=== PATIENT | male | born 1945 | race Caucasian/White ===

== ENCOUNTER 2023-02-07 08:50 | Outpatient (CLI) | payer MEDICARE, BC, SELFPAY ==
--- NOTE | 2023-02-07 09:00 | CRLHL7_ITS ---
For Patients: As a result of the Century Cures Act, medical imaging exams and procedure reports are released immediately into your electronic medical record. You may view this report before your referring provider. If you have questions, please contact your health care provider. INDICATION: UTI TECHNIQUE: CT abdomen and pelvis urogram without and with 98CC ISOVUE-370 IV contrast. Contrast images were obtained in the nephrographic and delayed phases. COMPARISON: 06/07/2018 FINDINGS: KIDNEYS: The unenhanced images demonstrate no kidney or ureteral stones. The kidneys are normal in caliber and demonstrate normal uptake and excretion of IV contrast. No masses. Bilateral parapelvic renal cysts are present. There is mild prominence of the distal left ureter. URINARY BLADDER: The bladder wall is thickened measuring 9 millimeters although this may be secondary to incomplete distension. Mild irregularity of the posterior bladder wall is noted which may be associated with the adjacent prostate. OTHER: Mild scarring in both lung bases. No pleural effusion. No suspicious intrahepatic mass. Incidental subcentimeter hepatic cysts. The spleen is normal. Normal adrenal glands. Atherosclerotic disease. Pancreas is unremarkable. Sigmoid diverticulosis. No diverticulitis. No small bowel obstruction. No adenopathy. Degenerative changes. No fracture. Postop changes L3-4. Left hip replacement hardware. Normal gallbladder. IMPRESSION: 1. Distension of the left distal ureter without filling defect or stone. Possible wall thickening of the bladder with mild irregularity/trabeculation of the posterior bladder wall. 2. No hydronephrosis or solid renal mass. Please note that all CT scans at this facility use dose modulation, iterative reconstruction, and/or weight-based dosing when appropriate to reduce radiation dose to as low as reasonably achievable. Dictated by Lars Thompson MD @ 02/07/2023 1:17:49 PM (Electronically Signed)
[2023-02-07 09:52] LABS: Creatinine* 1.2 mg/dL (0.5-1.5); Estimated Glomerular Filt Rate 63 ml/min
== END 2023-02-07 08:51 | disposition home or self-care (01) ==
PROVIDERS: PCP Family Medicine; Visit Provider Urology
DX: N39.0 Urinary tract infection, site not specified (principal)
CPT/HCPCS: 36415; 74178; 82565; Q9967

== ENCOUNTER 2024-03-28 12:16 | Outpatient (CLI) | payer MEDICARE, BC, SELFPAY ==
--- OUTSIDE RECORDS SUMMARY | 2024-03-28 12:20 | XMS_ITS | Continuity of Care Document ---
Author Organization [facility] Address [address] [place] [address] Phone Care Team Providers Care General Lot Attendant Name Role Phone Jocelyn Leyva Unavailable Unavailable Allergies, Adverse Reactions, Alerts Substance Reaction Status Criticality simvastatin myalgia Active No Information ezetimibe myalgia Active No Information itraconazole Rash Active No Information melon Anaphylaxis Active No Information ARDON LEAF-TREE Anaphylaxis Active No Informati on Medications Medication Instructions Dosage Effective Dates (start - stop) Status Comments LATANOPROST (unknown strength) Not Available - Active PRESERVISION AREDS (unknown strength) Not Available - Active ASPIRIN (unknown strength) Not Available - Active OMEPRAZOLE (unknown strength) Not Available - Active ZANTAC (unknown strength) Not Available - Active Procedures Procedure Date Office/Outpatient Visit,Est, Mod 2018 X-Ray Exam Lwr Spine, Min 4 Views Postop Followup Visit Remove Lumbar Spine Lamina, 1 Seg Remove Added Spine Lamina, 1 Seg 2016 Pa Assist Remove Lumbar Spine Lamina, 1 Seg Pa Assist Remove Added Spine Lamina, 1 S eg Office/Outpatient Visit,New, Mod 2016 X-Ray Exam Lwr Spine, Min 4 Views Office/outpatient visit,new, mod 2009 X-ray exam lwr spine, min 4 views Advance Directives Directive Yes / No Effective Date File Name No Information Encounters Encounter Description Practice Location Reason(s) For Visit Diagnoses Date Provider Providers Copied on Encounter [facility], [address], [place], [place], [id number], [place] tel:[phone] [facility] - [facility] No Information 3201 9 Angela Jocelyn. [facility], [address], [place], [place], [facility], [place]. tel:[phone] Office/Outpa tient Visit,Est, Mod [facility], [address], [place], [place], [id number], [place] tel:[phone] [facility] - [place] Radiculopath y, lumbosacral region Jan- 8201 9 Angela Jocelyn. [facility], [address] [place] [address] [address], [place], [place], [facility], [place]. tel:[phone] Referring Provider: Gerardo Mathews, Deskarma Edith Padron , [place], [address]. tel:[phone] [facility], [address] [place] [address], [id number], [place] tel:[phone] [facility] - [place] Encounter for other specified surgical aftercare 7 Transfeldt Ensor. [facility], [address] [place] [address], [address], [id number], [place]. tel:[phone] Referring Provider: Gerardo Mathews, Deskarma Edith Padron , [place], [address]. tel:[phone] [facility], [address], [place], [place], [id number], [place] tel:[phone] [facility] No Information 7 Transfeldt Ensor. [facility], [address] [place] [address], [facility] [address], [place], [id number], [place]. tel:[phone] Referring Provider: Gerardo Mathews, [facility], [place], [address]. tel:[phone] Office/Outpa tient Visit,New, Mod [facility], [address] [place] [address], [id number], [place] tel:[phone] [facility] - [place] Spinal stenosis, lumbar region 7 Transfeldt Ensor. [facility], [address] [place] [address], [address], [id number], . tel:[phone] Referring Provider: Gerardo Mathews, [facility] [address] [place], [address]. tel:[phone] Office/outpa tient visit,new, mod Z [facility], [address] [place], [place] [address], [address], [place] tel:[phone] [facility] - [place] No Information 0 0 Transfeldt Ensor. [facility], [address] [place] [address], [address], [id number], . tel:[phone] Family History Family Member Type Diagnosis Age At Onset No Information Payers Payer name Insurance type Covered alliance [place] [id number] Medicare [facility] [id number] 1 Social History Type Description Quantity Date Captured Comments Alcohol Use Details Unknown Caffeine Use Details Unknown Tobacco Use Status No Information Smoking Status No Information Sex Male Chief Complaint And Reason For Visit No Information Reason For Referral Reason For Referral No Information Plan Of Treatment Date Type Action Status Future Order: Radiology Order AP -Add-Nqxj-Tox Lum (APLatFlExL), Ordered on: Ordered Future Order: Radiology Order AP /Lat/Flex/Ext Lumb (APLatFlExL), Ordered on: Ordered History Of Present Illness Encounter Date Complaint History Of Prese nt Illness No Information Functional Status Date Functional Assessmen t No Information Instructions Date Instruction Additional Infor toniion Weight Management Education Rela smith to Overweight Weight management: I nstructed to return to General Practitioner timeframe: 1 Month. Related to Overweight Weight Management Education Rela smith to Overweight Weight management: I nstructed to return to General Practitioner timeframe: 1 Month. Related to Overweight Assessments Type Assessment Date No Information Patient Care Teams Name Effective Dates (start - stop) Status Members No Information
--- OUTSIDE RECORDS SUMMARY | 2024-03-28 12:20 | XMS_ITS | Referral Summary ---
Author Organization [facility] Address [address] [place] [address] Care Team Providers Care Power Plant Technician Name Role Phone Elsewhere, Pcp Primary Care Provider Unavailabl e Source Comments Patient records contain information from all sites at [facility]. For routine questions regarding patient records, call [phone] during business hours, M-F 8:00 AM - 5:00 PM Central Time. Record requests for emergency care only can be directed to [phone] at any time.[facility] Encounters Date Type Department Care Team Description 02/27/2024 2:40 PM CDT Office Visit Department of Dermatology in [place], [place] [address] [place] [address] Karena Maguire M.D., M.S. Keratosis Seborrheic Inflamed (Primary Dx); Keratosis Actinic Discharge Disposition: Home or Self Care 02/19/2024 Clinical Communication Department of Dermatology in [address] [phone] sEtuardo Montanez M.D. from Last 3 Months Allergies Active Allergy Reactions Criticality Noted Date Comments Ezetimibe Myalgia Medium 02/22/2010 Itraconazole Rash Medium sporonox Melon Shortness of breath (Reselect Reaction) Medium 03/29/2017 Simvastatin Myalgia Medium 02/22/2010 Elevated blood glucose as well.Has tried all statins Spice Flavor Anaphylaxis 04/01/2009 pinto Medications Medication Sig Dispensed Refills Start Date End Date Status aspirin [address] tablet Take 81 mg by mouth every other day. 01/02/2019 Active vitamins A,C,Y-njjp-vylyae (ICAPS AREDS) 14,320 Units-226 mg-200 Units per capsule Take 1 tablet by mouth. Active timolol (TIMOPTIC) 0.5 % ophthalmic solution Administer 1 drop into the right eye 2 (two) times a day. 5 05/12/2019 Active tamsulosin (FLOMAX) 0.4 mg 24 hr capsule TAKE ONE CAPSULE BY MOUTH DAILY AFTER A MEAL 11 03/30/2019 Active fluorouraciL (EFUDEX) 5 % cream Apply 1 application topically 2 (two) times a day. For 3 weeks as tolerated on the right cheek 40 g 12/31/2020 Active finasteride (PROSCAR) 5 mg tablet Take 5 mg by mouth daily. 06/25/2022 Active tiZANidine (ZANAFLEX) 2 mg tablet Take 2 mg by mouth as needed. 07/11/2022 Active omeprazole (PriLOSEC) [address] capsule TAKE 1 CAPSULE (40 MG) BY MOUTH ONCE DAILY BEFORE A MEAL. 12/20/2022 Active Social History Tobacco Use Types Packs/Day Years Used Date Smoking Tobacco: Former Smokeless Tobacco: Never Tobacco Cessation:Counseling Given: Not Answered Nutrition Answer Date Recorded Nutrition: EVOO Fat Source Unknown 12/24 Nutrition: Servings of Fruits/Vegetables per Day Not on file 12/24/2020 Dental Answer Date Recorded Dental: Regular Dentist Unknown 12/24/19 21 Sex and Gender Information Value Date Recorded Sex Assigned at Not on file Gender Identity Not on file Sexual Orientation Not on file Last Filed Vital Signs Vital Sign Reading Time Taken Comments Blood Pressure 160/88 12/31/2020 11:00 AM ADMINISTRATIVE CLERK Pulse 73 12/31/2020 11:00 AM ADMINISTRATIVE CLERK Temperature - - Respiratory Rate - - Oxygen Saturation - - Inhaled Oxygen Concentration - - Weight - - Height - - Body Mass Index - - Plan of Treatment Upcoming Encounters Date Type Department Care Team (Late st Contact Info) Description 06/02/2024 4:15 PM CDT Office Visit Department of Dermatology in [address] [phone] Estuardo Montanez M.D. [address] [place] [address] Discharge Disposition: Home or Self Care Medical Devices Implanted Type Area Probate Clerk Device Identifier Shelf Expiration Date Model / Serial / Lot Hip Implant- [id number] Implanted:02/03 (Quantity not on file) Hip Implant Left: Hip Care Teams Power Plant Technician Relationship Specialty Start Date End Date Elsewhere, Pcp PCP - General Family Medicine 02/05/19
--- OUTSIDE RECORDS SUMMARY | 2024-03-28 12:20 | XMS_ITS | Encounter Summary ---
Author Organization [facility] Address [address] [place] [address] Care Team Providers Care Director Of Strategy & Mobile Name Role Phone Elsewhere, Pcp Primary Care Provider Unavailabl e Reason for Visit * Appointment Request (Routine) - Closed Specialty Diagnoses / Procedures Referred By Carl lovell Referred To Contact Dermatology Diagnoses Nevus Changing Referral ID Status Reason Start Date Expiration Date Visits Re quested Visits Authorized [id number] Closed 02/21/2024 02/20/2025 1 1 Encounter Details Date Type Department Care Team ([facility] st Contact Info) Description 02/27/2024 2:40 PM CDT Office Visit Department of Dermatology in [place], [place] [address] [place] [phone] Karena Maguire M.D., M.S. [address] [place] [phone] Keratosis Seborrheic Inflamed (Primary Dx); Keratosis Actinic Discharge Disposition: Home or Self Care Social History Tobacco Use Types Packs/Day Years Used Date Smoking Tobacco: Former Smokeless Tobacco: Never Nutrition Answer Date Recorded Nutrition: EVOO Fat Source Unknown 12/24 Nutrition: Servings of Fruits/Vegetables per Day Not on file 12/24/2020 Dental Answer Date Recorded Dental: Regular Dentist Unknown 12/24/19 21 Sex and Gender Information Value Date Recorded Sex Assigned at Not on file Gender Identity Not on file Sexual Orientation Not on file documented as of this encounter Progress Notes * Karena Maguire M.D., M.S. - 02/27/2024 2:40 PM CDT Correspondence to Dr. Maguire REFERRAL No ref. provider found CHIEF COMPLAINT / REASON FOR VISIT Multiple concerns, face and scalp only skin cancer screening examination HISTORY OF PRESENT ILLNESS Mr. Barrie Dinh is a 78 y.o. male who presents today for a face and scalp only skin cancer screening examination. Last seen in our department on 09/18/2023 with a benign exam. Today notes several waxy papules and skin tags on the anterior neck that he would like treated as well as on the left cheek. Notes he previously had a mole with a atypia biopsied on left medial cheek and feels a new bump growing adjacent to the scar. He would like this specifically evaluated MEDICAL HISTORY 1. 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 Holman at [facility] 2. Negative for melanoma FAMILY HISTORY Negative for melanoma PHYSICAL EXAM General: Awake, alert, in no acute distress, and with appropriate affect. Skin: I have examined the scalp, face. Hyperkeratotic red papule x3 on the vertex scalp (cryotherapy x3). Irritated waxy stuck on papule on the left anterior neck, left cheek, and right neck (cryotherapy x5). ASSESSMENT / PLAN #1 Actinic keratoses times 3 Given the precancerous nature of this lesion(s), treatment is medically indicated. After discussionof the risks, benefits and alternatives to treatment with cryotherapy, informed consent was obtained. We treated a total of xxx lesion(s) with two 20-second freeze-thaw cycles of liquid nitrogen cryotherapy. The patient tolerated the procedure well. Aftercare instructions were provided in written and verbal form to the patient. Should any of these lesions recur, the patient should return for biopsy or further evaluation. Discussed the risks, benefits, alternatives, and the necessity of other members of the healthcare team participating in the procedure. All questions answered and consent given. #2Inflamed seborrheic keratoses The benign nature of this lesion(s) was discussed with the patient. Given the inflamed nature of this lesion(s), its treatment is medically indicated. We treated a total of x5 lesion(s) with one 20-second freeze-thaw cycle of liquid nitrogen cryotherapy. The patient tolerated the procedure well. Aftercare instructions were provided in written and verbal form to the patient. Should any of these lesions recur, the patient should return for further evaluation. #3 Seborrheic keratoses The benign nature of the skin lesion(s) was discussed with the patient. No treatment is required. Irecommend continued observation. Should symptoms or changes develop related to this condition, I would recommend a return visit for reassessment. No orders of the defined types were placed in this encounter. Associated attestation - Mat Carrasco M.D. - 02/27/2024 2:53 PM CDT I saw and evaluated the patient, participating in the sanabria elements of the service. I discussed the findings, assessment and plan with the resident/fellow and agree with resident/fellow???s findings and plan as documented in the resident/fellow's note. I was immediately available for the entirety ofthe procedure(s) and present for the sanabria and critical portions. documented in this encounter Plan of Treatment Upcoming Encounters Date Type Department Care Team (Late st Contact Info) Description 06/02/2024 4:15 PM CDT Office Visit Department of Dermatology in [address] [phone] Estuardo Montanez M.D. [address] [place] [phone] Discharge Disposition: Home or Self Care documented as of this encounter Visit Diagnoses Diagnosis Keratosis Seborrheic Inflamed- Primary Keratosis Actinic documented in this encounter Care Teams Director Of Strategy & Mobile Relationship Specialty Start Date End Date Elsewhere, Pcp PCP - General Family Medicine 02/05/19 documented as of this encounter
--- OUTSIDE RECORDS SUMMARY | 2024-03-28 12:20 | XMS_ITS | Continuity of Care Document ---
Author Organization [facility] Address [address] [facility] [address] [place] [address] Phone Care Team Providers Care Nutrition And Dietetics Instructor Name Role Phone Moises Lopez MD Unavailable Unavailable Allergies, Adverse Reactions, Alerts Substance Reaction Status Criticality itraconazole Active No Information Medications Medication Instructions Dosage Effective Dates (start - stop) Status Comments gabapentin 300 mg capsule take 1 capsule by oral route every bedtime 300 MG - Active ibuprofen 200 mg tablet take 2 tablet by oral route every 6 hours as needed with food 400 MG - Active PROBIOTIC (unknown strength) take 1 Capsule by Oral route every day Not Available - Active ranitidine 150 mg tablet take 2 Tablet by oral route every bedtime - Active omeprazole 20 mg tablet,delayed release take 1 Tablet by Oral route every day 1 Tablet - Active aspirin 81 mg tablet,delayed release take 1 tablet by oral route every day 81 MG - Active PRESERVISION AREDS (unknown strength) take 2 tablet by Oral route every day Not Available - Active Procedures Procedure Date Office/Outpatient Visit, [facility] [[email or web address] Office/Outpatient Visit, New Routine Venipuncture Specimen Handling Complete Cbc WAuto Diff Wbc Rbc Sed Rate, Nonautomated Assay Of Serum Albumin Assay Of Creatinine Transferase (Ast) (Sgot) Alanine Amino (Alt) (Sgpt) Assay Of Ck (Cpk) CReactive Protein Antinuclear Antibodies Advance Directives Directive Yes / No Effective Date File Name No Information Encounters Encounter Description Practice Location Reason(s) For Visit Diagnoses Date Provider Providers Copied on Encounter Office/Outpa tient Visit, [facility] , [address], [place], [address], [place] tel:[phone] [facility] , Follow Up of Musculoskele jorge alberto pain (chief complaint) Generalized osteoarthrit isLeg weaknessCarp al tunnel syndromeDupu ytren's contracture 5 [place]. [facility] [address], [place], [address], [place]. tel:[phone] Referring Provider: Moises Peter, [facility] [address], [place], [address]. [phone] Office/Outpa tient Visit, [facility] , [address], [place], [address], [place] tel:[phone] [facility] , Musculoskele jorge alberto pain (chief complaint) TinglingFati gueMuscle painGERDGene ralized osteoarthrit is John [place]. [facility] [address], [place], [address], [place]. tel:[phone] Referring Provider: Moises Peter, [facility] [address], [place], [address]. tel:[phone] [facility] , [address], [place], [address], [place] tel:[phone] [facility] , No Information John De Leon. [facility] [address], [place], [address], [place]. tel:[phone] Family History Family Member Type Diagnosis Age At Onset Father Problem (finding) degenerative disorder o f macula Mother Problem (finding) degenerative disorder o f macula Payers Payer name Insurance type Covered democrat ID Chuck benavidez(s) [employer] Medicare Advantage/Plat inum Blue BL [id number] Social History Type Description Quantity Date Captured Comments Alcohol Use Details 2 drinks daily Caffeine Use Details coffee 2 cups per day Tobacco Use Status Ex-cigarette smoker 015 Smoking Status Former smoker Smoking Tobacco Use Details Cigarette: Age Stopped: 42 Cigarette: No Details Available Sex Male Vital Signs Date / Time: Height Weight BMI Pulse Rate Blood Pressure Temperature Respiratory Rate Body Surface Area Head Circumference Head Circ. Percentile Wt./Oscar. Percentile BMI percentile Pulse Ox Inhaled Ox 8:36 AM 69.75 in 87.997 kg (194.00 lbs) 28.0 4 kg/m eter (2) 112/60 mm[Hg] 97.90 F Chief Complaint And Reason For Visit From encounter dated '06/29/2015 08:30'. Follow Up of Musculoskeletal pain (chief complaint) Reason For Referral Reason For Referral No Information History Of Present Illness Encounter Date Complaint History Of Prese nt Illness Follow Up of Musculoskeletal mary ann n Musculoskeletal pain Functional Status Date Functional Assessmen t No Information Instructions Date Instruction Additional Infor mation His symptoms and phy sical findings in the upper extremities are consistent with carpal tunnel syndrome and EMG did confirm mild carpal tunnel syndrome on the right. The symptoms have been stable for many years and are not particularly bothersome for him. I can't rule out a contribution to these symptoms from cervical radiculopathy. I don't think further treatment of this issue is necessary. I therefore don't think an MRI scan of the cervical spine would change treatment. Related to Carpal tunnel syndrome He has a Dupuytren's contracture in the right hand but is virtually asymptomatic from this. Again, no treatment was suggested. Related to Dupuytren's contracture His leg pain is impr yonis, presumably related to the gabapentin. I suggested that he discuss the possibility of increasing the gabapentin dose with Dr. Hylton. Although he also complains of weakness and has a very low level elevated CPK, EMG was not supportive of a diagnosis of inflammatory myositis nor is the low level of elevation of that blood test. Again, I don't think he has an underlying systemic disease other than osteoarthritis that includes the lumbar spine and, in that area, it is causing impingement on nerve roots at multiple levels. I brought up the possibility of epidural injection for this problem. Again, he is going to discuss this with Dr. Hylton. Related to Leg weakness I think the main und erlying condition is generalized osteoarthritis. Although he has positive single-stranded DNA antibodies, I don't think he has any STEPHANIE related connective tissue disease. Because of this laboratory finding, however, I did suggest that he followup with me in 6 months to make sure nothing has evolved to suggest connective tissue disease. In the meantime, he will continue conservative management of his musculoskeletal symptoms. Related to Generalized osteoarthritis He certainly has gen eralized osteoarthritis. He's had a left total hip arthroplasty likely related to that. For now, pending further evaluation, I did not recommend any treatment. I will do basic laboratories looking for other forms of arthritis. Related to Generalized osteoarthritis His significant refl ux symptoms despite both omeprazole and ranitidine likely will limit any use of nonsteroidal anti-inflammatory medication. Related to GERD See discussion above . Certainly this is not related to the statin medication anymore. I don't think this is simple deconditioning. Related to Muscle pain The fatigue seems to be felt primarily in his legs. I believe this goes along with the sensation of tingling although it can occur at different times. Again, I wonder about the possibility of lumbar radiculopathy as the underlying cause of both of these issues. The fatigue may be pseudo-claudication. He has excellent peripheral pulses making claudication much less likely. I'm going to check laboratories for myasthenia gravis but I doubt that. I did recommend an MRI scan of the lumbosacral spine in addition to the EMG. No specific treatment of this was recommended until I see results of those tests. Related to Fatigue He was somewhat diff icult to pin him down as to the timing of when he has tingling in his hands and legs. The tingling in his hands involves all of the fingers with the possible exception of the fifth fingers. It involves the entire legs from the hips distally. He had a positive Phalen's test bilaterally. He may have bilateral carpal tunnel syndrome but it's also very possible that he has cervical radiculopathy contributing to the symptoms in his hands. I'm going to check an EMG of both upper and lower extremities to see if that is helpful in identifying the source of these dysesthesias. I also recommended that he at least try using splints on his wrist at night. I did not recommend any medication at this time. Related to Tingling Assessments Type Assessment Date assessment Generalized osteoarthritis assessment Leg weakness assessment Carpal tunnel syndrome 15 assessment Dupuytren's contracture 015 Patient Care Teams Name Effective Dates (start - stop) Status Members No Information
--- OUTSIDE RECORDS SUMMARY | 2024-03-28 12:20 | XMS_ITS | Clinical Summary ---
Author Organization [facility] Address [address] [place] [address] Care Team Providers Care Garment Tag Stringer Name Role Phone Elsewhere, Pcp Primary Care Provider Unavailabl e Source Comments Patient records contain information from all sites at [facility]. For routine questions regarding patient records, call [phone] during business hours, M-F 8:00 AM - 5:00 PM Central Time. Record requests for emergency care only can be directed to [phone] at any time.[facility] Allergies Active Allergy Reactions Criticality Noted Date [...] mouth every other day. 01/02/2019 Active vitamins A,C,I-ynlw-jpmsdc (ICAPS AREDS) 14,320 Units-226 mg-200 Units per [...] ONCE DAILY BEFORE A MEAL. 12/20/2022 Active Encounters Date Type Department Care Team Description 02/27/2024 2:40 PM CDT Office Visit Department of Dermatology in [place], [place] [address] [place] [phone] Karena Maguire M.D., M.S. Keratosis Seborrheic Inflamed (Primary Dx); Keratosis Actinic Discharge Disposition: Home or Self Care 02/19/2024 Clinical Communication Department of Dermatology in [address] [phone] Estuardo Montanez M.D. from Last 3 Months Social History Tobacco Use Types Packs/Day Years [...] Comments Blood Pressure 160/88 12/31/2020 11:00 AM [employer] Pulse 73 12/31/2020 11:00 AM [employer] Temperature - - Respiratory Rate - - Oxygen Saturation - - Inhaled Oxygen Concentration - - Weight - - Height - - Body Mass Index - - Plan of Treatment Upcoming Encounters Date Type Department Care Team (Late st Contact Info) Description 06/02/2024 4:15 PM CDT Office Visit Department of Dermatology in [address] [phone] Estuardo Montanez M.D. [address] [place] [address] Discharge Disposition: Home or Self Care Health Maintenance Due Date Last Done Comments Hepatitis C Screening 1945 Zoster Vaccines (1 of 2) 1996 DTaP,Tdap,and Td Vaccines (2 - Td or Tdap) 08/10/2018 08/10/2008 Influenza Vaccine (#1) 2023 , 08/17/2021, 08/19/2020, Additional history exists Depression Screening (Annual PHQ-2) 11/05/2023 Fall Risk Screen (Annual) 11/05/2023 COVID-19 Vaccine (8 - 2022-2 4 season) 2024 10/08/2023, 06/29/2023, 07/28/2022, Additional history exists Pneumococcal vaccine (65+ years) Completed 10/21/20 15, 04/02/2012 Medical Devices Implanted Type Area Tapper Supervisor Device Identifier Shelf Expiration Date Model / Serial / Lot Hip Implant- 015 Implanted:02/03 (Quantity not on file) Hip Implant Left: Hip Care Teams Garment Tag Stringer Relationship Specialty Start Date End Date Elsewhere, Pcp PCP - General Family Medicine 02/05/19
--- OUTSIDE RECORDS SUMMARY | 2024-03-28 12:20 | XMS_ITS ---
Author Organization [facility] Address [address] [place] [address] Care Team Providers Care Executive Director Contract Shop Name Role Phone Unavailable Unavailable Unavailable Surgery Details Not on file Complications Check Surgery Details section. Procedure Estimated Blood Loss Check Surgery Details section. Procedure Findings Check Surgery Details section. Procedure Specimens Taken Check Surgery Details section.
--- OUTSIDE RECORDS SUMMARY | 2024-03-28 12:21 | XMS_ITS | Data Portability ---
Author Organization [place] [facility] Address [address] [facility] [address] [place] [address] Assessment No assessment recorded. Plan of Treatment Reminders Order Date Submit Date Provider Last Modified By Organization Details Last Modified Time Details Appointments None recorded. Lab urinalysis, dipstick 2023 024 JOSE [facility], [facility]5 [facility], [address] [facility], [place], [address], 4 09:00:26 urinalysis, dipstick 2022 023 [facility], [facility]5 [facility], [address] [facility], [place], [address], 3 10:40:52 urinalysis, dipstick 2022 023 [facility], [facility]5 [facility], [address] [facility], [place], [address], 3 12:10:00 urinalysis, dipstick 2021 022 [email or web address] [facility], [facility]5 [facility], [address], [place], [address], 2 11:56:12 Referral None recorded. Procedures bladder scan (PROC) 2023 024 [email or web address] [facility], [address], [address], [place], [address], 4 11:43:28 bladder scan (PROC) 2022 023 [facility], [address], [address], [place], [address], 3 10:40:52 bladder scan (PROC) 2022 023 [facility], [address], [place], [address], 3 12:10:00 Surgeries None recorded. Imaging None recorded. Medication Orders cephalexin 500 mg capsule 2023 024 JOSE [id number], [address] [place] [address], [address], 4 11:45:28 tamsulosin 0.4 mg capsule 2022 023 [email or web address] [facility], [address] [place] [address], [address], 3 12:19:59 finasteride 5 mg tablet 2021 022 JOSE [id number] [employer], [address] [place] [address], [address], 2 12:27:54 Patient TargetsNo targets recorded. Patient Instructions Encounter Date Encounter Id Patient Instructions Last Modified By Organization Details Last Modified Time 02/12/2024 [id number] continue current prostate meds and start keflex 10 days, plan rtc in July. [email or web address] Not available 02/12/2024 11:46:11 07/10/2023 [id number] doing well and will plan rtc in the spring for PSA and med refills. [email or web address] Not available 07/10/2023 10:52:06 02/27/2023 [id number] will set up for cystoscopy left retrograde and possible left ureteroscopy with laser/stent placement ALEKS discussed 8 minute phone visit. [email or web address] Not available 02/27/2023 12:09:27 01/23/2023 [id number] will increase tamsulosin to two per day, get PSA today and set up for CT urogram, call with reports, and plan follow up 3 months for recheck. [email or web address] Not available 01/23/2023 12:21:05 04/11/2022 [id number] will continue tamsulosin and start finasteride plan recheck in 4-6 months. [email or web address] Not available 04/11/2022 12:29:00 Reason for Referral None Reported. Results Created Date Observation Date Name Description Value Unit Range Abnormal Flag LastModifiedBy Organization Detail LastModifiedTime 04/11/20 22 04/11/2022 urina lysis , dipst ick pH-Status 5.5 Not Available [address] [facility], [place], [address], 04/11/2022 11:55:36 01/24/20 23 01/23/2023 urina lysis , dipst ick pH-Status 6.5 Not Available [address] [place], [place], [address], 01/23/2023 12:05:18 01/24/20 23 01/23/2023 bladd er scan (PROC ) Volume (in mL) 49ml Not Available [address] [place], [place], [address], 01/23/2023 12:05:25 07/10/20 23 07/10/2023 urina lysis , dipst ick pH-Status 5.5 Not Available [address], [place], [address], 07/10/2023 10:31:06 07/10/20 23 07/10/2023 bladd er scan (PROC ) Volume (in mL) 64ml Not Available [address], [place], [address], 07/10/2023 10:31:08 02/12/20 24 02/12/2024 bladd er scan (PROC ) Volume (in mL) 85ml Not Available [address], [place], [address], 02/12/2024 11:28:40 02/13/20 24 02/13/2024 urina lysis , dipst ick Color-Status Yellow Not Available [address], [place], [address], 02/12/2024 11:43:24 02/13/20 24 02/13/2024 urina lysis , dipst ick Clarity-Stat us Clear Not Available [address], [place], [address], 02/12/2024 11:43:24 02/13/20 24 02/13/2024 urina lysis , dipst ick Specimen Type Voided Not Available [address], [place], [address], 02/12/2024 11:43:24 02/13/20 24 02/13/2024 urina lysis , dipst ick Leuko-Status Negati ve Not Available [address], [place], [address], 02/12/2024 11:43:24 02/13/20 24 02/13/2024 urina lysis , dipst ick Blood-Status Negati ve Not Available [address] [place], [place], [address], 02/12/2024 11:43:24 02/13/20 24 02/13/2024 urina lysis , dipst ick Nitrates-Sta tus negati ve Not Available [address] [place], [place], [address], 02/12/2024 11:43:24 02/13/20 24 02/13/2024 urina lysis , dipst ick pH-Status 6.0 Not Available [address] [place], [place], [address], 02/12/2024 11:43:24 02/13/20 24 02/13/2024 urina lysis , dipst ick Sp [place]-Stat us 1.025 Not Available [address] [place], [place], [address], 02/12/2024 11:43:24 02/13/20 24 02/13/2024 urina lysis , dipst ick Ketones-Stat us Not Available [address], [place], [address], 02/12/2024 11:43:24 07/05/20 20 06/21/2020 measu remen t of post- voidi ng resid ual urine and/o r bladd er capac ity (PROC ) No observ ation record ed. BARCODE Not Available 07/05/2020 13:11:44 04/12/20 22 04/11/2022 bladd er scan (PROC ) No observ ation record ed. BARCODE Not Available 04/12/2022 08:52:59 01/26/20 23 01/23/2023 bladd er scan (PROC ) No observ ation record ed. BARCODE Not Available 01/25/2023 15:58:35 02/09/20 23 02/07/2023 CT, urogr am No observ ation record ed. [email or web address] [address] [place], [address], 02/28/2023 16:42:28 04/19/20 23 04/19/2023 XR, kidne y + urete r + bladd er No observ ation record ed. [email or web address] [facility] [address] [facility] [place], [address], 04/20/2023 09:17:27 02/14/20 24 02/12/2024 bladd er scan (PROC ) No observ ation record ed. BARCODE Not Available 02/14/2024 15:12:07 Result Notes None recorded. Problems Name Status Onset Date Resolution Date Notes Provider Name and Address Organization Details Recorded Time Lower urinary tract symptoms due to benign prostatic hypertrophy Active 01/24/20 Jerry Almanza MD [address] [place] [address],[address], [address], [facility] 01/23/2023 12:18:40 Problem Notes None recorded. Procedures Surgical History Date Name Laterality Status Provider Name and Address Organization Details Recorded Time 4 Bladder Scan completed Jerry Almanza MD [address] [place] [address],[address], [address], [facility] 02/12/2024 11:28:36 3 Bladder [facility] 07/10/2023 10:39:00 3 Bladder Scan completed Jerry Almanza MD [address] [place] [address],[address], [address], [facility] 01/23/2023 12:05:08 2 Bladder Scan completed Jerry Almanza MD [address] [place] [address],[address], [address], [facility] 04/11/2022 11:55:29 procedure on back completed Jerry Almanza MD [address] [facility],[address], [place], [address], [facility] 04/11/2022 11:53:44 total replacement of hip completed Jerry Almanza MD [address] [facility],[address], [place], [address], [facility] 04/11/2022 11:54:04 Vasectomy completed Jerry Almanza MD [address] [facility],[address], [place], [address], [facility] 04/11/2022 11:54:11 Imaging Results Imaging Date Name Status LastModified by Organiz ation Details LastModified Time 06/21/2020 measurement of post-voiding residual urine and/or bladder capacity (PROC) completed BARCODE Information not available 07/05/2020 13:11:44 04/11/2022 bladder scan (PROC) completed BARCODE Information not available 04/12/2022 08:52:59 01/23/2023 bladder scan (PROC) completed BARCODE Information not available 01/25/2023 15:58:35 02/07/2023 CT, urogram completed [facility] [address] [place], [address], 02/28/2023 16:42:28 04/19/2023 XR, kidney + ureter + bladder completed [email or web address] [facility] [address] [place], [address], 04/20/2023 09:17:27 02/12/2024 bladder scan (PROC) completed BARCODE Information not available 02/14/2024 15:12:07 Procedure Notes None recorded. Medical Equipment None Reported. Allergies Allergen ID Allergen Name Allergen Category Reaction Reaction Severity Criticality Documentation Date Start Date Code Code System Note Provider Name and Address Organization Details Recorded Time 828504 Sporanox medicatio n Not available Not available Not available 04/11/2022 6 RxNorm Jerry Almanza MD [address] [facility],[address], [place], [address], [facility] 11:51:49 909145 melon extract food Not available Not available Not available 04/11/2022 61389 10 RxNorm Jerry Almanza MD [address] [facility], [place], [address], [facility] 2 11:51:54 278645 Product containin g 3-hydroxy -3-methyl glutaryl- coenzyme A reductase inhibitor (product) medicatio n Not available Not available Not available 04/11/2022 24378 009 SNOMED Jerry Almanza MD [address] [facility], [place], [address], [facility] 2 11:52:03 Medications Name Sig Start Date Stop Date Status Note LastModified by Organization Details LastModified Time amoxicillin 500 mg capsule TAKE 4 CAPSULE 1 HOUR PRIOR TO DENTAL APPIONTME NT active Not Available Not Available No t Available tizanidine 2 mg tablet TAKE 1 TABLET BY MOUTH EVERY 6 HOURS IF NEEDED FOR MUSCLE SPASM. active Not Available Not Available No t Available sulfamethox azole 800 mg-trimetho prim 160 mg tablet TAKE 1 TABLET BY MOUTH EVERY 12 HOURS FOR 7 DAYS 01/23 completed Not Available Not Available Not Available omeprazole 40 mg capsule,del ayed release TAKE 1 CAPSULE BY MOUTH EVERY DAY BEFORE A MEAL active Not Available Not Available No t Available ketorolac 0.5 % eye drops PLEASE SEE ATTACHED FOR DETAILED DIRECTION S 04/11 completed Not Available Not Available Not Available prednisolon e acetate 1 % eye drops,suspe nsion PLEASE SEE ATTACHED FOR DETAILED DIRECTION S 04/11 completed Not Available Not Available Not Available tamsulosin 0.4 mg capsule TAKE 2 CAPSULES BY MOUTH EVERY DAY IN THE EVENING. active Not Available Not Available No t Available phenazopyri dine 100 mg tablet TAKE 1 TABLET BY MOUTH 3 TIMES A DAY NEEDED FOR PAIN 01/23 completed Not Available Not Available Not Available cephalexin 500 mg capsule TAKE 1 CAPSULE BY MOUTH THREE TIMES A DAY FOR 10 DAYS active Not Available Not Available No t Available timolol maleate 0.5 % eye drops INSTIL 1 DROP INTO RIGHT EYE 2 TIMES DAILY active Not Available Not Available No t Available finasteride 5 mg tablet TAKE 1 TABLET BY MOUTH EVERY DAY active Not Available Not Available No t Available gatifloxaci n 0.5 % eye drops PLEASE SEE ATTACHED FOR DETAILED DIRECTION S 04/11 completed Not Available Not Available Not Available Vitals Date Recorded Body height Body mass index (BMI) Body weight Provider Name and Address Organization Details Last Updated DateTime 01/23/2023 177.8 cm 27.3 kg/m2 63452.55 g Jerry Almanza MD [address] [place] [address],[address], [address] [place] [address] 01/23/2023 12:06:34 Date Recorded Body height Body mass index (BMI) Body weight Provider Name and Address Organization Details Last Updated DateTime 02/27/2023 177.8 cm 27.3 kg/m2 61050.55 g Claudiaellen Godinez [facility] 02/27/2023 10:59:27 Date Recorded Body height Body mass index (BMI) Body weight Provider Name and Address Organization Details Last Updated DateTime 07/10/2023 177.8 cm 27.3 kg/m2 03131.55 g Gregg Godinez [facility] 07/10/2023 10:30:30 Date Recorded Body height Body mass index (BMI) Body weight Provider Name and Address Organization Details Last Updated DateTime 02/12/2024 177.8 cm 27.3 kg/m2 31595.55 g Jerry Almanza MD [address] [place] [address] 02/12/2024 11:30:14 Date Recorded Body height Body mass index (BMI) Body weight Provider Name and Address Organization Details Last Updated DateTime 04/11/2022 177.8 cm 28 kg/m2 63060.51 g Jerry Almanza MD [address] [place] [address] 04/11/2022 11:50:45 Social History Question Answer Notes LastModified by Organizat ion Details LastModified Time Tobacco Smoking Status Former Smoker Jerry Almanza MD [address] [place] [address], [address] [place] [address], [facility] 04/11/2022 11:53:29 What Is Your Level Of Alcohol Consumption? Moderate [email or web address] Information not available 04/11/2022 What Is Your Level Of Caffeine Consumption? Moderate [email or web address] Information not available 04/11/2022 When Did You Quit Smoking? 17+yearssinmiguel restrepo Information not available 04/11/2022 What Was The Date Of Your Most Recent Tobacco Screening? 04/11/2022 [email or web address] Information not available 04/11/2022 Sex: Male Functional Status None recorded. Mental Status None recorded. Family History Relationship Description Onset Age of this Age Resolved Age Notes Father Family history of ca rdiac disorder Medical History Condition Response Diabetes N Sexually Transmitted Infection N Bleeding Disorder N Other N High Blood Pressure N Kidney Stones N High Cholesterol Y GERD/Acid Reflux N Heart Disease N Cancer N Lung Disease N Depression N Past Encounters Encounter ID Performer Location Encounter Start Date Encounter Closed Date Diagnosis/Indication Diagnosis SNOMED-CT Code [id number] Jerry Almanza MD [address] [address] 04/11/2022 11:38:10 04/19/2022 16:24:59 Urgent desire to urinate 85426902 Lower urin monster tract symptoms due to benign prostatic hypertrophy [id number] Jerry Almanza MD [address] [place] [address] [address] 01/23/2023 11:18:41 01/26/2023 09:29:51 Urinary tract infectious disease 99160957 Lower urin monster tract symptoms due to benign prostatic hypertrophy [id number] Jerry Almanza MD [address] [address] 02/27/2023 10:58:22 03/02/2023 09:35:07 Lower urinary tract symptoms due to benign prostatic hypertrophy [id number] Jerry Almanza MD [facility] [address] 07/10/2023 10:21:05 07/16/2023 19:10:05 Lower urinary tract symptoms due to benign prostatic hypertrophy [id number] Jerry Almanza MD [address] [place] [address] 02/12/2024 11:04:41 02/12/2024 15:49:27 Lower urinary tract symptoms due to benign prostatic hypertrophy [id number] Health Concerns Section Related Observation LastModified by Organization Detai ls LastModified Time None Recorded Concern Status LastModified by Organization Details LastModified Time None Recorded Advance Directives Directive None Recorded Payers Encounter Date Sequence Insurance Name Policy Number Policy Colindres Covered Member ID Colindres Member ID Guarantor Name 02/12/2024 1 [place] COST [id number] Barrie Jasonosinski [id number] Barrie Beverly Klosinski 07/10/2023 1 [place] COST [id number] Barrie Beverly Klosinski [id number] Barrie Beverly Klosinski 02/27/2023 1 [place] COST [id number] Barrie Beverly Klosinski [id number] Barrie Beverly Klosinski 01/23/2023 1 [place] COST [id number] Barrie Jasonosinski [id number] Barrie Beverly Klosinski 04/11/2022 1 [place] COST [id number] Barrie Jasonosinski [id number] Barrie Beverly Klosinski Notes Date Note Type Note Provider Name and Address Organization Details Recorded Time 04/11/2022 text/html HPI Notes: moises g some recurrence of spinal issues and pelvic discomfort, some frequency and some stool urgency. taking tamsulosin for a while. UA clear and PVR 0ml today. has some hesitancy with voiding. PSA 2.72 2 months ago is stable. Jerry Almanza MD [address] [facility],[address], [place], [address], [place] [facility] 04/11/2022 14:09:34 01/23/2023 text/html HPI Notes: otiso w up after UTI in [place] 12/07/22 or so, got bactrim and CT done showing no hydro but some questionable thickening of distal left ureter. rec to have CT urogram done. UA clear and PVR 49ml today, taking finasteride and tamsulosin. does have some trouble starting stream at night and also during the day. Jerry Almanza MD [address] [place] [address],[address], [place], [address], [facility] 01/23/2023 12:24:07 02/27/2023 text/html HPI Notes: This visit was conducted by telephone due to the COVID-19 crisis. Prior to conducting our telephone visit, the patient was apprised of the risks, benefits and alternatives to telephone visits including but not limited to poor audio quality, interrupted visits due to technological limitations, delays in medical evaluation and treatment due to deficiencies or failures of equipment, failure of security protocols resulting in a breach of privacy of personal medical information and a lack of access to complete medical records resulting in not fully informed decisions. Also, because of the COVID-19 pandemic, it was not possible for the patient to sign the privacy regulations, HIPAA release and assignment of benefits forms. The patient was given the opportunity to ask questions about these policies and gave verbal acknowledgement and approval of these policies as well as to hold this meeting by telephone. Lastly, the patient agreed to allowing their medication history to be pulled from a national pharmacy database to facilitate and coordinate their care. call to follow up CT done [facility]. showed findings similar to CT from [place] with prominent but not obstructed left distal ureter. Jerry Almanza MD [address] [place] [address],[address], [place], [address], [facility] 02/27/2023 12:11:02 07/10/2023 text/html HPI Notes: here for UA and PVR today. taking finasteride and 2 tamsulosin per day/ UA clear and PVR 62ml today. going to [facility] in October. voiding well. Jerry Almanza MD [address] [place] [address],[address], [place], [address], [facility] 07/10/2023 10:53:22 02/12/2024 text/html HPI Notes: Vanna nt is here for follow up. PVR 85ml. Currently on finasteride and 2 tamsulosin/day. voiding OK on the meds and had PSA last week down to 2.32. having a lot of back pain and groinal pain. also some tightness of suprapubic area. UA clear and PVR 85ml today. Patient is here for follow up. PVR 85ml, UA neg. Currently on finasteride and 2 tamsulosin/day. voiding OK on the meds and had PSA last week down to 2.32. having a lot of back pain and groinal pain. also some tightness of suprapubic area. Jerry Almanza MD [address] [facility],[address], [place], [address], [facility] 02/12/2024 11:46:53
--- OUTSIDE RECORDS SUMMARY | 2024-03-28 12:21 | XMS_ITS | Continuity of Care Document ---
Author Organization [place] - [facility] ([place], [place])lo gy, [facility] Address [address] [place] [address] [address] [place] [address] Assessment No assessment recorded. Plan of Treatment Reminders Order Date Submit Date Provider Last Modified By Organization Details Last Modified Time Details Appointments None recorded. Lab urinalysis, dipstick 2023 024 [facility], [facility]5 [facility], [address], [address], 4 09:00:26 Referral None recorded. Procedures bladder scan (PROC) 2023 024 [email or web address] 9 [facility], [facility]5 [facility], Suite [facility], [place], [address], 4 11:43:28 Surgeries None recorded. Imaging None recorded. Medication Orders cephalexin 500 mg capsule 2023 024 [facility] [id number] [employer], [address] [facility] 3 [place], [address], 4 11:45:28 Patient TargetsNo targets recorded. Patient Instructions Encounter Date Encounter Id Patient Instructions Last Modified By Organization Details Last Modified Time 02/12/2024 [id number] continue current prostate meds and start keflex 10 days, plan rtc in July. Not available 02/12/2024 11:46:11 Reason for Referral None Reported. Results Created Date Observation Date Name Description Value Unit Range Abnormal Flag LastModifiedBy Organization Detail LastModifiedTime 02/12/20 24 02/12/2024 bladd er scan (PROC ) Volume (in mL) 85ml Not Available [address], [place], [address], 02/12/2024 11:28:40 02/13/20 24 02/13/2024 urina lysis , dipst ick Color-Status Yellow Not Available [address], [place], [address], 02/12/2024 11:43:24 02/13/20 24 02/13/2024 urina lysis , dipst ick Clarity-Stat us Clear Not Available [address], [place], [address], 02/12/2024 11:43:24 02/13/20 24 02/13/2024 urina lysis , dipst ick Specimen Type Voided Not Available [address], [place], [address], 02/12/2024 11:43:24 02/13/20 24 02/13/2024 urina lysis , dipst ick Leuko-Status Negati ve Not Available [address], [place], [address], 02/12/2024 11:43:24 02/13/20 24 02/13/2024 urina lysis , dipst ick Blood-Status Negati ve Not Available [address], [place], [address], 02/12/2024 11:43:24 02/13/20 24 02/13/2024 urina lysis , dipst ick Nitrates-Sta tus negati ve Not Available [address], [place], [address], 02/12/2024 11:43:24 02/13/20 24 02/13/2024 urina lysis , dipst ick pH-Status 6.0 Not Available [address], [place], [address], 02/12/2024 11:43:24 02/13/20 24 02/13/2024 urina lysis , dipst ick Sp [place]-Stat us 1.025 Not Available [address], [place], [address], 02/12/2024 11:43:24 02/13/20 24 02/13/2024 urina lysis , dipst ick Ketones-Stat us Not Available [address], [place], [address], 02/12/2024 11:43:24 02/14/20 24 02/12/2024 bladd er scan (PROC ) No observ ation record ed. BARCODE Not Available 02/14/2024 15:12:07 Result Notes None recorded. Problems Name Status Onset Date Resolution Date Notes Provider Name and Address Organization Details Recorded Time Lower urinary tract symptoms due to benign prostatic hypertrophy Active 01/24/20 23 Jerry Almanza MD [address] [facility],[address] [place] [address], [address], [place] [facility] 01/23/2023 12:18:40 Problem Notes None recorded. Procedures Surgical History Date Name Laterality Status Provider Name and Address Organization Details Recorded Time 4 Bladder Scan completed Jerry Almanza MD [address] [facility],[address], [place], [address], [place] [facility] 02/12/2024 11:28:36 3 Bladder Scan completed Maymuna Herbert [facility] 07/10/2023 10:39:00 3 Bladder Scan completed Jerry Almanza MD [address] [place] [address],[address], [place], [address], [facility] 01/23/2023 12:05:08 2 Bladder Scan completed Jerry Almanza MD [address] [place] [address],[address], [place], [address], [facility] 04/11/2022 11:55:29 procedure on back completed Jerry Almanza MD [address] [place] [address],[address], [place], [address], [facility] 04/11/2022 11:53:44 total replacement of hip completed Jerry Almanza MD [address] [place] [address],[facility] [address], [place], [address], [facility] 04/11/2022 11:54:04 Vasectomy completed Jerry Almanza MD [address] [place] [address],[place] [address], [place], [address], [facility] 04/11/2022 11:54:11 Imaging Results None recorded. Procedure Notes None recorded. Medical Equipment None Reported. Allergies Allergen ID Allergen Name Allergen Category Reaction Reaction Severity Criticality Documentation Date Start Date Code Code System Note Provider Name and Address Organization Details Recorded Time 015390 Sporanox medicatio n Not available Not available Not available 04/11/2022 11000 6 RxNorm Jerry Almanza MD [address] [place] [address],[address] [place] [address], [address], [facility] 2 11:51:49 165689 melon extract food Not available Not available Not available 04/11/2022 59243 10 RxNorm Jerry Almanza MD [address] [place] [address],[address] [place] [address], [address], [facility] 2 11:51:54 299874 Product containin g 3-hydroxy -3-methyl glutaryl- coenzyme A reductase inhibitor (product) medicatio n Not available Not available Not available 04/11/2022 29375 009 SNOMED Jerry Almanza MD [address] [place] [address],[address], [place], [address], [facility] 11:52:03 Medications Name Sig Start Date Stop [...] Updated DateTime 02/12/2024 177.8 cm 27.3 kg/m2 55840.55 g Jerry Almanza MD [address] [facility],[address], [place], [address], [facility] 02/12/2024 11:30:14 Social History Question Answer Notes LastModified by Organizat ion Details LastModified Time Tobacco Smoking Status Former Smoker Jrery Almanza MD [address] [facility],[address], [place], [address], [place] [facility] 04/11/2022 11:53:29 What Is Your Level Of Alcohol Consumption? Moderate [email or web address] Information not available 04/11/2022 What Is Your Level Of Caffeine Consumption? Moderate [email or web address] Information not available 04/11/2022 When Did You Quit Smoking? 16+yearssincel astcigarette [email or web address] Information not available 04/11/2022 What Was The Date Of Your Most Recent Tobacco Screening? 04/11/2022 [email or web address] Information not available 04/11/2022 Sex: Male Functional Status None recorded. Mental Status None recorded. Family History Relationship Description Onset Age of this Age Resolved Age Notes Father Family history of ca rdiac disorder Medical History Condition Response Other N High Blood Pressure N Kidney Stones N Lung Disease N Depression N GERD/Acid Reflux N Diabetes N Sexually Transmitted Infection N Bleeding Disorder N Cancer N High Cholesterol Y Heart Disease N Past Encounters Encounter ID Performer Location Encounter Start Date Encounter Closed Date Diagnosis/Indication Diagnosis SNOMED-CT Code [id number] Jerry Almanza MD [facility] [address] [facility],[address] [place] [address] 02/12/2024 11:04:41 02/12/2024 15:49:27 Lower urinary tract symptoms due to benign prostatic hypertrophy [id number] Health Concerns Section Related Observation LastModified by Organization Detai ls LastModified Time None Recorded Concern Status LastModified by Organization Details LastModified Time None Recorded Payers Encounter Date Sequence Insurance Name Policy Number Policy Colindres Covered Member ID Colindres Member ID Guarantor Name 02/12/2024 1 [place] [facility] COST [id number] Barrie Dinh [id number] Barrie Dinh Notes Date Note Type Note Provider Name and Address Organization Details Recorded Time 02/12/2024 text/html HPI Notes: Vanna mcfadden is here for follow up. PVR 85ml. [...] tightness of suprapubic area. Jerry Almanza MD [address] [facility],[address], [place], [address], [facility] 02/12/2024 11:46:53
--- OUTSIDE RECORDS SUMMARY | 2024-03-28 12:21 | XMS_ITS | Encounter Summary ---
Author Organization [facility] Address [address] [place] [address] Care Team Providers Care Fuel Management Handler Name Role Phone Elsewhere, Pcp Primary Care Provider Unavailabl e Encounter Details Date Type Department Care Team (Late Contact Info) Description 02/19/2024 Clinical Communication Department of Dermatology in [address] [address] Estuardo Montanez M.D. [address] [place] [phone] Social History Tobacco Use Types Packs/Day Years [...] on file documented as of this encounter Plan of Treatment Upcoming Encounters Date Type Department Care Team (Late st Contact Info) Description 06/02/2024 4:15 PM CDT Office Visit Department of Dermatology in [address] [address] Estuardo Montanez M.D. [address] [place] [phone] Discharge Disposition: Home or Self Care documented as of this encounter Visit Diagnoses Not on filedocumented in this encounter Care Teams Fuel Management Handler Relationship Specialty Start Date End Date Elsewhere, Pcp PCP - General Family Medicine 02/05/19 documented as of this encounter
--- OUTSIDE RECORDS SUMMARY | 2024-03-28 12:21 | XMS_ITS | Data Portability ---
Author Organization SIMON Triplett - Leonardo Last, [facility] Address [address] [place] [address] Assessment No assessment recorded. Plan of Treatment Reminders Order Date Submit Date Provider Last Modified By Organization Details Last Modified Time Details Appointments None recorded. Lab urinalysi s, dipstick, auto 023 023 [facility], [address] , [place], [address], 3 14:19:52 culture, urine 023 023 [facility], [address] [facility], [place], [address], 3 12:57:28 Referral None recorded. Procedures None recorded. Surgeries None recorded. Imaging None recorded. Medication Orders Bactrim DS 800 mg-160 mg tablet 023 023 [id number], [address] [facility], [place], [address], 3 14:19:52 Patient TargetsNo targets recorded. Patient Instructions Encounter Date Encounter Id Patient Instructions Last Modified By Organization Details Last Modified Time 12/12/2022 [id number] Urinalysis indicates you likely have a bladder infection. You should notice improvement in your symptoms in 2-3 days after starting antibiotic treatment. Finish all medication as prescribed. If you are not improving, follow up with your PCP for re-evaluation. If you significantly worsen, develop fever, chills, increased back pain, abdominal pain, nausea, vomiting and/or rapid heart rate you need to go to the ER for evaluation. chung Not available 12/12/2022 14:19:58 Reason for Referral None Reported. Results Created Date Observation Date Name Description Value Unit Range Abnormal Flag LastModifiedBy Organization Detail LastModifiedTime 12/12/19 23 12/15/2022 CLJADA Weeks EDUCA TION TRACK ING client education tracking Not Available [facility] [address], [place], [address], 12/15/2022 04:14:38 12/12/19 23 12/15/2022 CULTU RE, URINE , ROUTI NE culture, urine, routine SEE NOTE Not Available [facility] [address], [place], [address], 12/15/2022 04:14:38 12/12/19 23 12/12/2022 urina lysis , dipst ick, auto Color Talya [Refer ence Range Yellow Straw] Not Available [facility] [address] [place], [address], 12/12/2022 14:02:13 12/12/19 23 12/12/2022 urina lysis , dipst ick, auto Clarity Bloody [Refer ence Range Clear] Not Available [facility] [address] [place], [address], 12/12/2022 14:02:13 12/12/19 23 12/12/2022 urina lysis , dipst ick, auto Glucose Negati ve [Refer ence Range Negati ve] Not Available [facility] [address] [place], [address], 12/12/2022 14:02:13 12/12/19 23 12/12/2022 urina lysis , dipst ick, auto Bilirubin Negati ve [Refer ence Range Negati ve] Not Available [address], [place], [address], 12/12/2022 14:02:13 12/12/19 23 12/12/2022 urina lysis , dipst ick, auto Ketones Negati ve [Refer ence Range Negati ve] Not Available [address], [place], [address], 12/12/2022 14:02:13 12/12/19 23 12/12/2022 urina lysis , dipst ick, auto Specific [place] ? ? 1.030 [Refer ence Range 1.001- 1.035] Not Available [address], [place], [address], 12/12/2022 14:02:13 12/12/19 23 12/12/2022 urina lysis , dipst ick, auto Blood Large [Refer ence Range Negati ve-Tra ce] Not Available [address], [place], [address], 12/12/2022 14:02:13 12/12/19 23 12/12/2022 urina lysis , dipst ick, auto Protein ? ? 300 mg/dL [Refer ence Range Negati ve] Not Available [address], [place], [address], 12/12/2022 14:02:13 12/12/1912/12/2022 urina lysis , dipst ick, auto Urobilinogen (0.2-1 .0) E.U./d L [Refer ence Range (0.2-1 .0) E.U./d L] Not Available [address] [place], [address], 12/12/2022 14:02:13 12/12/19 23 12/12/2022 urina lysis , dipst ick, auto Nitrate Positi ve [Refer ence Range Negati ve] Not Available [facility] [address], [place], [address], 12/12/2022 14:02:13 12/12/19 23 12/12/2022 urina lysis , dipst ick, auto Leukocytes Trace [Refer ence Range Negati ve] Not Available [address], [place], [address], 12/12/2022 14:02:13 12/12/19 23 12/12/2022 urina lysis , dipst ick, auto pH 6.5 [Refer ence Range 5.0-9. 0] Not Available [address], [place], [address], 12/12/2022 14:02:13 Result Notes None recorded. Problems Name Status Onset Date Resolution Date Notes Provider Name and Address Organization Details Recorded Time Acute urinary tract infection Active 3 ARMANDO Taylor [address] [place], [address], [facility] 12/12/2022 14:12:58 Problem Notes None recorded. Medical Equipment None Reported. Allergies Allergen ID Allergen Name Allergen Category Reaction Reaction Severity Criticality Documentation Date Start Date Code Code System Note Provider Name and Address Organization Details Recorded Time 759598 Sporanox medicatio n Not available Not available Not available 12/12/2022 6 RxNorm [facility] 14:01:41 Medications Name Sig Start Date Stop Date Status Note LastModified by Organization Details LastModified Time Bactrim DS 800 mg-160 mg tablet Take 1 tablet every 12 hours by oral route for 7 days. 023 active Not Available Not Available Not Avai lable Vitals Date Recorded Body height Body mass index (BMI) Body weight Heart rate Respiratory rate Oxygen saturation Oxygen saturation in Arterial blood by Pulse oximetry Body temperature Systolic blood pressure Diastolic blood pressure Provider Name and Address Organization Details Last Updated DateTime 3 177.8 cm 27.9 kg/m2 77313.0 8 g 71 /min 16 /min 96 % 96 % 98.3 [degF] 112 mm[Hg] 70 mm[Hg] Madyson [facility] 14:01:13 Social History Question Answer Notes LastModified by Organizat ion Details LastModified Time Tobacco Smoking Status Former Smoker Madyson Blackmonriley [facility] 12/12/2022 14:01:59 Do You Have An Advance Directive? No Information not available 12/12/2022 Patients Living Environment Safe And Secure? Yes Information not available 12/12/2022 High Risk For Falls? No Information not available 12/12/2022 Readiness To Learn Accepting Information not available 12/12/2022 Barriers To Learning None Information not available 12/12/2022 Learning Preferences No Preferences Information not available 12/12/2022 Have You Had A Fever And/or Symptoms Of A Lower Respiratory Illness (cough, Difficulty Breathing, Etc)? No Information not available 12/12/2022 Have You Had Any Of These Symptoms: Chills ,Headache, Fatigue, Muscle Or Body Aches , Sore Throat, New Loss Of Taste Or Smell, Nausea Or Vomiting, Or Diarrhea? No Information not available 12/12/2022 Sex: Male Functional Status None recorded. Mental Status None recorded. Family History Relationship Description Onset Age of this Age Resolved Age Notes Father No current problems or disability Mother No current problems or disability Medical History No medical history recorded. Past Encounters Encounter ID Performer Location Encounter Start Date Encounter Closed Date Diagnosis/Indication Diagnosis SNOMED-CT Code [id number] ARMANDO Taylor [facility] [address] [place] [address] 12/12/2022 13:07:31 12/12/2022 14:21:46 Acute urinary tract infection [id number] Health Concerns Section Related Observation LastModified by Organization Detai ls LastModified Time None Recorded Concern Status LastModified by Organization Details LastModified Time None Recorded Advance Directives Directive N: Payers Encounter Date Sequence Insurance Name Policy Number Policy Colindres Covered Member ID Colindres Member ID Guarantor Name 12/12/2022 2 [facility]: [employer] ([employer]) [id number] Barrie Dinh [id number] Barrie Dinh Notes Date Note Type Note Provider Name and Address Organization Details Recorded Time 12/12/2022 text/html HPI Notes: 77 yo M c/o urinary burning, gross hematuria since this morning. Denies fever, chills, flank pain, n/v. Hx of prostate issues. No past kidney or UTIs. ARMANDO Taylor [address] [place], [address], [facility] [place] [facility] 12/12/2022 14:21:55
--- OUTSIDE RECORDS SUMMARY | 2024-03-28 12:21 | XMS_ITS | Clinical Summary ---
Author Organization [facility] Address [place], [place] [address] Care Team Providers Care Health Science Writer Name Role Phone MadieBharath Maria G Primary Care Provider Allergies Active Allergy Reactions Criticality Noted Date Comments Ezetimibe Rash,Myalgia Medium 02/22/2010 sporonex Zetia Itraconazole Rash Medium sporonox Melon Shortness Of Breath,Dyspnea Medium 03/29/2017 Melon Flavor 04/01/2009 Simvastatin Myalgia Medium 02/22/2010 Elevated blood glucose as well.Has tried all statins Spice Flavor Anaphylaxis 04/01/2009 pinto Medications Medication Sig Dispensed Refills Start Date End Date Status Vit A,C,U-Hhqr-Yrotgr (ICAPS AREDS) [phone] ayce-ak-hznv cap Take 1 tablet by mouth 2 times daily. Active aspirin (ECOTRIN) 81 mg enteric coated tablet Takes 1 tablet every other day 0 01/02/2019 Active timolol maleate (TIMOPTIC) 0.5 % ophthalmic solution Place 1 Drop into both eyes 2 times daily. 5 01/15/2019 Active tamsulosin (FLOMAX) 0.4 mg capsuleIndications :Benign prostatic hyperplasia with weak urinary stream Take 1 Capsule (0.4 mg) by mouth once daily after a meal. 90 Capsule 1 09/19/2021 Active finasteride (PROSCAR) 5 mg tablet Take 5 mg by mouth once daily. 04/11/2022 Active tiZANidine (ZANAFLEX) 2 mg tabletIndications: Spasm of muscle of lower back TAKE 1 TABLET (2 MG) BY MOUTH EVERY 6 HOURS IF NEEDED FOR MUSCLE SPASM. 90 Tablet 1 07/11/2022 Active phenazopyridine (PYRIDIUM) 100 mg tablet TAKE 1 TABLET BY MOUTH 3 TIMES A DAY NEEDED FOR PAIN 12/24/2022 Active omeprazole (PRILOSEC) 40 mg Delayed-Release capsuleIndications :Chronic GERD Take 1 Capsule (40 mg) by mouth once daily before a meal. 90 Capsule 4 03/07/2024 Active omeprazole (PRILOSEC) 40 mg Delayed-Release capsuleIndications :Chronic GERD Take 1 Capsule (40 mg) by mouth once daily before a meal. 90 Capsule 3 03/02/2023 03/07/2024 Discontinued (Reorder (E-cancel not sent)) Hospital, Clinic, or Other Facility Administered Medication Ordered Dose Route Frequency Start Date End Date Status fentaNYL (PF) (SUBLIMAZE) 50 mcg/mL injection 75 mcgIndications:Gastroesopha geal reflux disease without esophagitis 75 mcg IV ONE TIME 03/27/2024 03/27/2024 Ended midazolam (VERSED) injection 2 mgIndications:Gastroesophag eal reflux disease without esophagitis 2 mg IV ONE TIME 03/27/2024 03/27/2024 Ended fentaNYL (PF) (SUBLIMAZE) 50 mcg/mL injection 100 mcgIndications:Gastroesopha geal reflux disease without esophagitis 100 mcg IV ONE TIME 03/27/2024 03/27/2024 Ended Active Problems Problem Noted Date Diagnosed Date Abnormal CT scan, pelvis 03/04/2023 Overview: ureteral finding. current work up for possible neoplasm being done. 02/25. DDD (degenerative disc disease), cervical 2018 Facet arthritis, degenerative, cervical spine Spinal stenosis, lumbar gabbi on, without neurogenic claudication 03/29/2017 Benign non-nodular prostatic hyperplasia with lower urinary tract symptoms 09/18/2016 Displacement of lumbar inter vertebral disc without myelopathy 04/18/2010 GERD (gastroesophageal reflux disease) 9 Overview: EGD 04/2021 hiatal hernia, no Rosenberg's Neuroma 04/04/2009 CAD (coronary artery disease) 08/10/2008 Unspecified sleep apnea Hyperlipidemia LDL goal < 100 Overview: ldl goal <100 (per cardiology 03/12/07) Impaired fasting glucose Resolved Problems Problem Noted Date Diagnosed Date Resolved Date Chest pain, unspecified 03/2023 Encounters Date Type Department Care Team Description 03/27/2024 9:30 AM CDT Office Visit [facility] [address] [facility] [address] Pawan Duong MD Arrived 03/27/2024 Travel 03/20/2024 Telephone [facility] [address] [facility] [place] [address] Pawan Duong MD Appointment Reminder (EGD 03/27/24) 03/19/2024 10:30 AM CDT Ancillary Procedure [facility] [address] [facility] [place] [address] 03/19/2024 9:00 AM CDT Procedure Only [facility] [address] [facility] [place] [address] Cardiovascular Diagnostic Testing (Nuclear... 03/19/2024 Orders Only [facility] Scanner <No scans attached> 03/19/2024 Orders Only [facility] [address] [facility] [place] [address] Bharath Ramachandran DO <No scans attached> 03/19/2024 Telephone [facility] [address] [facility] [place] [address] Bharath Ramachandran DO Referral 03/19/2024 Travel 03/17/2024 8:45 AM CDT Ancillary Procedure [facility] [address] [facility] [place] [address] 03/17/2024 8:00 AM CDT Ancillary Procedure [facility] [place] [address] 03/17/2024 Telephone [facility] [place] [address] Gerardo Antoine MD Results 03/17/2024 Travel 03/11/2024 Orders Only [address] [place] [address] Bharath Ramachandran DO 1 scan: (1-Ord) NFLD-EKG-03/07/24 03/07/2024 8:35 AM CDT Office Visit [facility] [address] [facility] [place] [address] Bharath Ramachandran DO Medicare ANNUAL (subsequent) Visit (78 yr/); Kidney Problem; Chest Pain (sporatic- since about December goes into arm ) 03/07/2024 Travel 02/28/2024 10:00 AM CDT Office Visit [facility] [address] [place] [address] Gerardo Antoine MD Musculoskeletal Problem (Follow up back pain, has been seen in the past 2021); Consult (Neck and right shoulder pain ) 02/28/2024 Travel 02/05/2024 3:30 PM CDT Orders Only [facility] [address] [place] [address] Lab, [place] Outside Order (Ordered by Jerry Almanza) 02/05/2024 Travel from Last 3 Months Immunizations Name Administration Dates Next Due COVID-19 vaccine (Moderna 100mcg/0.5mL) PF, MDV 01/21/2021,12/24/2020 Hepatitis A (Adult) 10/27/2005,03/08/2005 Influenza A (H1N1), Inactivated 10/09/2009 Influenza Virus, Unspecified 09/18/2019 Influenza, High-dose Inactivated 020,07/21/2020,09/17/2018,08/31,08/31/2016,09/02/2014 Influenza, High-dose Quadriv alent Inactivated 08/14/2022,08/17/2021 Influenza, IIV3 (Age 6-35 mos) 2,08/22/2011,10/12/2010,07/21 Influenza, IIV3 (Age >=3 years) 08/23/2007,09/10 Pneumococcal Poly,23-Valent (Pneumovax) 04/02/2012 Pneumococcal conj 13-Valent (Prevnar 13) 10/21/2015 RSV, Recombinant ADJ Reconst ituted (Arexvy 120MCG/0.5mL) 10/02/2023,07/06/2023 Tdap 08/10/2008 Family History Medical History Relation Name Comments Hepatitis Brother 2 awaiting transp lant Good Health Brother 3 Good Health Brother 4 Heart Disease Father Other Father macular degener ation Other Mother macular degener ation Cancer Sister 1 cancer-appendix Good Health Sister 4 Good Health Sister 5 Good Health Sister 6 Good Health Son 2 Relation Name Status Comments Brother 1 Alive Brother 2 Alive Brother 3 Brother 4 Father Alive Mother Alive Sister 1 Alive Sister 2 Alive Sister 3 Alive Sister 4 Sister 5 Sister 6 Son 1 Alive Son 2 Social History Tobacco Use Types Packs/Day Years Used Date Smoking Tobacco: Former Cigarettes 2 19 0 11/05/1968 - 11/05/1986 Smokeless Tobacco: Never Tobacco Cessation:Counseling Given: Yes Alcohol Use Standard Drinks/Week Comments Yes 30 (1 standard drink = 0.6 oz pu re alcohol) 7-14 drinks per week PHQ-2 Answer Date Recorded PHQ-2 TOTAL SCORE 0 03/07/2024 Social Connections Answer Date Recorded Frequency of Communication with Friends and Fami ly 0 03/07/2024 Financial Resource Strain Answer Date R ecorded Difficulty of Paying Living Expenses 3 03/07/2024 Difficulty of Paying Living Expenses Not on file 03/07/2024 Food Insecurity Answer Date Recorded Worried About Running Out of Food in the Last Ye ar 1 03/07/2024 Transportation Needs Answer Date Record ed Lack of Transportation (Medical) 1 03/07/2024 Housing Stability Answer Date Recorded Unable to Pay for Housing in the Last Year 1 03/07/2024 Sex and Gender Information Value Date Recorded Sex Assigned at Not on file Gender Identity Not on file Sexual Orientation Not on file Obstetrics History Last Filed Vital Signs Vital Sign Reading Time Taken Comments Blood Pressure 130/65 03/27/2024 10:35 AM CDT Pulse 70 03/27/2024 10:35 AM CDT Temperature 36.4 ??C (97.6 ??F) 03/07/2024 8:33 AM CD T Respiratory Rate 12 03/27/2024 10:35 AM CDT Oxygen Saturation 93% 03/27/2024 10:35 AM CDT Inhaled Oxygen Concentration - - Weight 89.8 kg (198 lb) 03/07/2024 8:33 AM CDT Height 176.5 cm (5' 9.49) 03/07/2024 8:33 AM CD T with shoes Body Mass Index 28.83 03/07/2024 8:33 AM CDT Plan of Treatment Upcoming Encounters Date Type Department Care Team (Late st Contact Info) Description 03/28/2024 1:00 PM CDT Office Visit [facility] [address] [place] [address] Gerardo Antoine MD [address] [place] [address] Arrived 04/01/2024 8:15 AM CDT Ancillary Procedure [facility] [address] [place] [address] Health Maintenance Due Date Last Done Comments Zoster (shingles) series for age 50+ (1 of 2) 1996 Tetanus booster 08/10/2018 08/10/2008 Influenza for age 65+ 07/06/2024 08/14/2022 , 08/17/2021, 08/19/2020, Additional history exists BMI (ht and wt on same day) for age 18+ 03/07/2025 03/07/2024, 02/06/2022, 03/10/2021, Additional history exists Depression screening for age 12+ 03/07/2025 03/07/2024, 03/02/2023, 02/09/2022, Additional history exists Medicare Wellness for age 65+ 03/08/2025, 03/02/2023, 02/06/2022, Additional history exists Tdap Completed 08/10/2008 Pneumococcal series for age 65+ Completed 5, 04/02/2012 Fecal testing non-DNA (FIT,FOBT,iFOBT) for age 45-75 Discontinued 09/20/2021 Hepatitis C screening for ag e 18-79 Completed 03/09/2023 COVID-19 vaccine series Completed 10/08/20 23, 06/29/2023, 07/28/2022, Additional history exists Procedures Procedure Name Priority Date/Time Associated Diagnosis Comments AMB EPIDURAL STEROID INJECTION Routine 0 03/28/2024 8:06 AM CDT DDD (degenerative disc disease), lumbar Lumbar foraminal stenosis Lumbar facet arthropathy Lumbar radiculopathy ENDOSCOPY 03/27/2024 9:28 AM CDT ESOPHAGOGASTRODUODENOSCOPY Routine 03/27 9:23 AM CDT Gastroesophageal reflux disease without esophagitis Dysphagia, unspecified type NM CARDIAC MPI STRESS TEST Routine 03/19 11:00 AM CDT Chest tightness Coronary artery disease due to calcified coronary lesion LA CV STRS TST XERS&/OR RX C ONT ECG W/SI&R Routine 03/19/2024 12:00 AM CDT Chest tightness Coronary artery disease due to calcified coronary lesion Chest pain in adult SCAN-STRESS TEST 03/19/2024 12:00 AM CDT SCAN-STRESS TEST 03/19/2024 12:00 AM CDT SCAN-STRESS TEST 03/19/2024 12:00 AM CDT MR SPINE LUMBAR WO Routine 03/17/2024 8:47 AM CDT Lumbar foraminal stenosis Lumbosacral radiculopathy at L4 DDD (degenerative disc disease), lumbar Lumbar facet arthropathy MR SPINE CERVICAL WO Routine 03/17/2024 8:23 AM CDT Cervical radiculopathy DDD (degenerative disc disease), cervical Foraminal stenosis of cervical region EKG 12 LEAD Routine 03/11/2024 11:04 AM CDT Chest tightness LA READING EKG - NO CHARGE, COMP ONLY Routine 03/11/2024 11:03 AM CDT Chest tightness HEMOGLOBIN A1C SCREENING Routine 024 9:32 AM CDT Impaired fasting glucose BASIC METABOLIC PANEL Routine 03/07/2024 9:32 AM CDT Impaired fasting glucose LIPID PANEL W REFLEX MEASURE D LDL Routine 03/07/2024 9:32 AM CDT Hyperlipidemia LDL goal < 100 PSA TOTAL (DIAGNOSTIC) Routine 3:28 PM CDT Elevated prostate specific antigen (PSA) LC HCV ANTIBODY RFX TO QUANT PCR Routine 03/09/2023 7:54 AM CDT Need for hepatitis C screening test OCCULT BLOOD IFOBT STOOL Routine 021 11:46 AM BEATER 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 Screening for colorectal cancer from Last 3 Months or Most Recently Relevant to Health Maintenance Results * ENDOSCOPY (03/27/2024 9:28 AM CDT) 03/27/2024 9:28 AM CDT Narrative Transcriptions Pawan Duong MD - 03/27/2024 10:30 AM CDT Patient Name: Lonnie Dinh Procedure Date: 03/27/2024 Gender: Male Date of : 1945 Admit Type: Outpatient Procedure: Upper GI endoscopy Proceduralist: Pawan Duong MD , Melvina Welch (Nurse), Laurie Saab (Nurse) Referring MD: Bharath Ramachandran Indications/Pre-Op Diagnosis: Dysphagia, syncope and 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 The endoscope [id number] was introduced through the mouth, and advanced to the third part of duodenum. The upper GI endoscopy was accomplished without difficulty. The patient tolerated the procedure well. Complications: No immediate complications. Estimated Blood Loss & Specimen: Estimated blood loss: none. Estimated blood loss: none. Specimen collected - Yes and sent to Laboratory Findings: Two tongues of salmon-colored mucosa were present at 39 cm. No other visible abnormalities were present. The maximum longitudinal extentof these esophageal mucosal changes was 0.5 cm in length. Biopsies were taken with a cold forceps for histology. A 3 cm hiatal hernia was present. Striped moderately erythematous mucosa without bleeding was found inthe gastric antrum. Biopsies were taken with a cold forceps forhistology. The examined duodenum was normal. 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 - 3 cm hiatal hernia. - Erythematous mucosa in the antrum. Biopsied. - Normal examined duodenum. Recommendation: - Patient has a contact number available for emergencies. The signsand symptoms of potential delayed complications were discussed with the patient. Return to normal activities tomorrow. Written discharge instructions were provided to the patient. - Resume previous diet. - Continue present medications. - Await pathology results. - Refer to a adult education professional if symptoms persist. The patient is experiencing presyncopal episodes with esophageal dysphagia likely related to esophageal dysmotility. The presyncopal spell is relatedto activation of the efferent limb of the vagus nerve causingbradycardia. This could be treated with pacemaker placement. Moderate Sedation: A time out was performed before the procedure. Moderate (conscious) sedation was administered by the endoscopy nurse and supervised bythe endoscopist. The following parameters were monitored: oxygensaturation, heart rate, blood pressure, EKG, CO2, respiratory rate, adequacy of pulmonary ventilation and reponse to care. Please refer to the patient's medical record flowsheets and nursing notes for moderate sedation details. Total physician intraservice time was 10 minutes. Pawan Duong MD 03/27/2024 10:30:26 AM This report has been signed electronically. Note Initiated On: 03/27/2024 9:28 AM Procedure Code(s): --- Professional --- 24623, Esophagogastroduodenoscopy, flexible, transoral; with biopsy, single or multiple Diagnosis Code(s): --- Professional --- K22.70, Rosenberg's esophagus withoutdysplasia K44.9, Diaphragmatic hernia withoutobstruction or gangrene K31.89, Other diseases of stomach andduodenum R13.10, Dysphagia, unspecified CPT copyright 2022 [employer]. All rights reserved. The codes documented in this report are preliminary and upon rollway man reviewmay be revised to meet current compliance requirements. Scope In: 10:04:11 AM Scope Out: 10:10:57 AM Pawan Duong MD PROCEDURE ORD * NM CARDIAC MPI STRESS TEST (03/19/2024 11:00 AM CDT) Anatomical Region Laterality Modality HEART Nuclear Medicine 03/19/2024 9:26 AM CDT Narrative 03/19/2024 2:57 PM CDT ? Toll -free: [phone] ?[facility] ?MYOCARDIAL PERFUSION IMAGING REPORT REST/STRESS SINGLE ISOTOPE GATED SPECT IMAGING. Patient Name: ?? LONNIE DINH ? Gender: ? M ? Height: ? 69 in Accession #: ?[id number] ?Weight: ? 198 lb Study Date: ? 03/19/2024 9:26:11 AM ? BSA: ?2.06 m? ? ? : ?1945 78 years ?BMI: ?29.24 kg/m? ? ? Ord. Prov.: ? BHARATH MARIA G DETERT ?Monitoring Prov.: Kierra, ? Diana Performing Site [facility] ?Clinic Clinical History: ? Chest pain. Known coronary artery disease. Cardiac Risk Factors: Hypercholesterolemia. Other Symptomatology: RIGO and glaucoma. Cardiac History: ?CTA. Beta malgorzata/calcium channel malgorzata/nitrate taken today: No. Caffeine/methylxanthine taken within 12 hrs: ?No. Chest pain/discomfort at baseline: ?No. IMPRESSION 1. Myocardial perfusion was normal. 2. The peak heart rate was 122 bpm (86% MPHR); peak blood pressure was 158 mmHg/70 mmHg. 3. Left ventricular cavity size was normal (resting EDV 91 ml). 4. Overall left ventricular systolic function was normal without wall motion abnormalities. The post stress LVEF was calculated to be 78 %. 5. See separate report for EKG intrepretation. 6. Compared to prior study of 10/20/20, there is no significant change. STRESS MPI PROCEDURE The patient was studied utilizing a same day rest/stress protocol. Myocardial perfusion imaging was performed at rest, 20 minutes following the intravenous injection of 8.08 mCi of 99mTc sestamibi. At peak exercise, the patient was injected via IV with 30.0 mCi of 99mTc sestamibi and exercise was continued for 1:00 minute. Symptoms developed during exercise included shortness of breath. Stress was stopped because of shortness of breath. Gated post-stress tomographic imaging was performed 19 minutes after stress. After image acquisition was completed, data was reconstructed in short, horizontal long and vertical long axis views and tomographic slices were generated. ?? Protocol ? Total Time ?MPHR ?Max RPP Max Workload Modified Jean 13:28 minutes 86% of 143 bpm ??03695 ?? 7.60 METS ? HR ? BP Baseline 78 bpm ??129 mmHg/60 mmHg ?Peak 122 bpm 158 mmHg/70 mmHg FINDINGS Imaging - The overall quality of the study was excellent with mild soft tissue attenuation on rest and stress studies. Computerized motion correction was not applied to rest and stress studies. - SPECT perfusion images were normal without evidence of ischemia or infarction. - Computer processed gated imaging revealed normal left ventricular size with a calculated LVEF of 78 %. (Lab normals: LVEF >50%, LV Size <150 ml). - There was normal post-stress myocardial thickening and wall motion. - No right ventricular abnormalities were identified. - There was no evidence of abnormal lung or extracardiac activity. - Risk/extent of ischemia per ACC Noninvasive Risk Stratification Guideline: LOW RISK. This study was interpreted and electronically signed by Lars Bowden MD on 03/19/2024 2:57:56 PM. ??Final (Updated) ?? Procedure Note Lars Hill MD - 03/19/2024 Toll -free: [phone] [facility] MYOCARDIAL PERFUSION IMAGING REPORT REST/STRESS SINGLE ISOTOPE GATED SPECT IMAGING. Patient Name: LONNIE DINH Gender: Bisi Height: 69 in Weight: 198lb Study Date: 03/19/2024 9:26:11 AM BSA: 2.06m? ? ? : 1945 78 years BMI: 29.24kg/m? ? ? Ord. Prov.: BHARATH CUMMINS DETERNas Monitoring Prov.:Diana Lozada Performing Site [facility] Clinical History: Chest pain. Known coronary artery disease. Cardiac Risk Factors: Hypercholesterolemia. Other Symptomatology: RIGO and glaucoma. Cardiac History: CTA. Beta malgorzata/calcium channel malgorzata/nitrate taken today: No. Caffeine/methylxanthine taken within 12 hrs: No. Chest pain/discomfort at baseline: No. IMPRESSION 1. Myocardial perfusion was normal. 2. The peak heart rate was 122 bpm (86% MPHR); peak blood pressure [id number] mmHg/70 mmHg. 3. Left ventricular cavity size was normal (resting EDV 91 ml). 4. Overall left ventricular systolic function was normal without wallmotion abnormalities. The post stress LVEF was calculated to be 78 %. 5. See separate report for EKG intrepretation. 6. Compared to prior study of 10/20/20, there is no significant change. STRESS MPI PROCEDURE The patient was studied utilizing a same day rest/stress protocol.Myocardial perfusion imaging was performed at rest, 20 minutes followingthe intravenous injection of 8.08 mCi of 99mTc sestamibi. At peakexercise, the patient was injected via IV with 30.0 mCi of 99mTc sestamibiand exercise was continued for 1:00 minute. Symptoms developed duringexercise included shortness of breath. Stress was stopped because ofshortness of breath. Gated post-stress tomographic imaging was [id number] minutes after stress. After image acquisition was completed, data wasreconstructed in short, horizontal long and vertical long axis views andtomographic slices were generated. Protocol Total Time MPHR Max RPP Max Workload Modified Jean 13:28 minutes 86% of 143 bpm [id number] 7.60 METS HR BP Baseline 78 bpm 129 mmHg/60 mmHg Peak 122 bpm 158 mmHg/70 mmHg FINDINGS Imaging - The overall quality of the study was excellent with mild soft tissue attenuation on rest and stress studies. Computerized motion correction wasnot applied to rest and stress studies. - SPECT perfusion images were normal without evidence of ischemia orinfarction. - Computer processed gated imaging revealed normal left ventricular sizewith a calculated LVEF of 78 %. (Lab normals: LVEF >50%, LV Size <150 ml). - There was normal post-stress myocardial thickening and wall motion. - No right ventricular abnormalities were identified. - There was no evidence of abnormal lung or extracardiac activity. - Risk/extent of ischemia per ACC Noninvasive Risk StratificationGuideline: LOW RISK. This study was interpreted and electronically signed by Zenaida Villavicencio 03/19/2024 2:57:56 PM. Final (Updated) Bharath Toneynas DO NM * LA CV STRS TST XERS&/OR RX CONT ECG W/SI&R (03/19/2024 12:00 AM CDT) Diana Lozada DO PB - CARDIOVASCULA R SYSTEM SERVICES * SCAN-STRESS TEST (03/19/2024 12:00 AM CDT) Only the most recent of3 resultswithin the time period is included. Anatomical Region Laterality Modality Nuclear Medicine Scanner OTHER * MR SPINE LUMBAR WO (03/17/2024 8:47 AM CDT) Anatomical Region Laterality Modality Spine, LUMBAR SPINE Magnetic Res onance 03/17/2024 12:1 6 PM CDT Narrative 03/17/2024 12:16 PM CDT For Patients: ??As a result of the Century Cures Act, medical imaging exams and procedure reports are released immediately into your electronic medical record. ??You may view this report before your referring provider. ??If you have questions, please contact your health care provider. Indication: Low back pain. Lumbar radiculopathy. Technique: Noncontrast MRI scan of the lumbar spine. Comparison: MRI scan of the lumbar spine 03/16/2022. Findings: General: Normal lower thoracic cord and conus termination at the inferior endplate of L1. 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 Degenerative disc disease and facet arthrosis throughout the lumbar spine. Modic type 2 and type 1 endplate signal changes at L2-L3, likely degenerative. Modic type 2 endplate signal changes at L1 the L2 and L4-L5. No fracture or suspicious bone lesion. Disc levels: L1-L2: Minimal retrolisthesis of L1. Mild posterior broad-based disc bulge and bilateral facet hypertrophy. No focal disc protrusion, nerve root impingement or spinal stenosis. L2-L3: Minimal retrolisthesis of L2. Disc space height loss. Posterior broad- based disc protrusion, bilateral facet hypertrophy and ligamentum flavum thickening. Mild/moderate spinal stenosis. Bilateral lateral recess stenosis. Moderate/severe bilateral foraminal stenosis. Increased STIR signal within the intervertebral disc space, similar to that seen on the previous exam with similar endplate edema, likely all degenerative. Indolent infection is felt to be unlikely. Correlate clinically. L3-L4: Posterior broad-based disc protrusion. Bilateral facet hypertrophy and ligamentum flavum thickening. Moderate spinal stenosis. Bilateral lateral recess stenosis. Severe right neural foraminal stenosis and moderate left neural foraminal stenosis. L4-L5: Mild disc space height loss and decreased disc signal. Bilateral facet hypertrophy and ligamentum flavum thickening, worse on the right. No focal disc protrusion. Mild spinal stenosis. Severe right neural foraminal stenosis. Mild left neural foraminal stenosis. Bilateral lateral recess stenosis. L5-S1:Unremarkable disc. Mild bilateral facet hypertrophy. Mild right neural foraminal stenosis. Impression: 1. Degenerative spondylosis of the lumbar spine with varying degrees of spinal stenosis, lateral recess stenosis and foraminal stenosis as detailed above. 2. Increased STIR signal within the L2-L3 disc space and endplates is very similar to that seen on the previous exam and likely all secondary to degenerative disc disease. Indolent infection is felt to be unlikely. Correlate clinically. Dictated by Maurice García MD @ 03/17/2024 12:16:19 PM (Electronically Signed) Procedure Note Maurice García MD - 03/17/2024 For Patients: As a result of the 21st Century Cures Act, medical imagingexams and procedure reports are released immediately into your electronicmedical record. You may view this report before your referring provider.If you have questions, please contact your health care provider. Indication: Low back pain. Lumbar radiculopathy. Technique: Noncontrast MRI scan of the lumbar spine. Comparison: MRI scan of the lumbar spine 03/16/2022. Findings: General: Normal lower thoracic cord and conus termination at the inferiorendplate of L1. 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 Degenerative disc disease and facet arthrosis throughout thelumbar spine. Modic type 2 and type 1 endplate signal changes at L2-L3,likely degenerative. Modic type 2 endplate signal changes at L1 the L2 andL4-L5. No fracture or suspicious bone lesion. Disc levels: L1-L2: Minimal retrolisthesis of L1. Mild posterior broad-based disc bulgeand bilateral facet hypertrophy. No focal disc protrusion, nerve rootimpingement or spinal stenosis. L2-L3: Minimal retrolisthesis of L2. Disc space height loss. Posteriorbroad- based disc protrusion, bilateral facet hypertrophy and ligamentumflavum thickening. Mild/moderate spinal stenosis. Bilateral lateral recessstenosis. Moderate/severe bilateral foraminal stenosis. Increased STIRsignal within the intervertebral disc space, similar to that seen on theprevious exam with similar endplate edema, likely all degenerative.Indolent infection is felt to be unlikely. Correlate clinically. L3-L4: Posterior broad-based disc protrusion. Bilateral facet hypertrophyand ligamentum flavum thickening. Moderate spinal stenosis. Bilaterallateral recess stenosis. Severe right neural foraminal stenosis andmoderate left neural foraminal stenosis. L4-L5: Mild disc space height loss and decreased disc signal. Bilateralfacet hypertrophy and ligamentum flavum thickening, worse on the right. Nofocal disc protrusion. Mild spinal stenosis. Severe right neural foraminalstenosis. Mild left neural foraminal stenosis. Bilateral lateral recessstenosis. L5-S1:Unremarkable disc. Mild bilateral facet hypertrophy. Mild rightneural foraminal stenosis. Impression: 1. Degenerative spondylosis of the lumbar spine with varying degrees ofspinal stenosis, lateral recess stenosis and foraminal stenosis asdetailed above. 2. Increased STIR signal within the L2-L3 disc space and endplates is verysimilar to that seen on the previous exam and likely all secondary todegenerative disc disease. Indolent infection is felt to be unlikely.Correlate clinically. Dictated by Maurice García MD @ 03/17/2024 12:16:19 PM (Electronically Signed) Gerardo Antoine MD MR * MR SPINE CERVICAL WO (03/17/2024 8:23 AM CDT) Anatomical Region Laterality Modality Spine, CERVICAL SPINE Magnetic R esonance 03/17/2024 12:1 6 PM CDT Impressions 03/17/2024 12:16 PM CDT 1. Normal alignment. No fractures. 2. Stable cervical spondylosis. 3. Normal cord signal. 4. At C3-4, mild narrowing of the spinal canal. Moderate to severe right neural foraminal narrowing. Potential impingement of the right C4 nerve root. 5. At C4-5, moderate narrowing of the right neural foramen 6. At C5-6, moderate narrowing of the spinal canal. Moderate to severe right and moderate left neural foraminal narrowing. Potential impingement of the right C6 nerve root. 7. At C6-7, moderate narrowing of the spinal canal and bilateral neural foramina Dictated by Herve Michael MD @ 03/17/2024 12:16:44 PM (Electronically Signed) Narrative 03/17/2024 12:16 PM CDT For Patients: ??As a result of the Cures Act, medical imaging exams and procedure reports are released immediately into your electronic medical record. ??You may view this report before your referring provider. ??If you have questions, please contact your health care provider. INDICATION: Cervical radiculopathy. COMPARISON: 02/10/2021. TECHNIQUE: Sagittal T1, T2, and STIR sequences. Axial T2/gradient sequences. FINDINGS: Normal vertebral body facet alignment. No fractures. No vertebral body loss of height. No spondylolisthesis. No evidence injury. No suspicious osseous lesions. Normal cord signal. No intradural mass or lesion. C1-2: No spinal canal narrowing. C2-3: No spinal canal or neural foraminal narrowing. C3-4: Disc degeneration. Posterior disc bulge disc osteophyte complex eccentric to the right. Mild narrowing of spinal canal. Moderate severe right and mild left neural foraminal narrowing. Potential impingement of the right C4 nerve root. C4-5: Disc degeneration and posterior disc bulging disc osteophyte complex. No narrowing of spinal canal. Moderate narrowing of the right neural foramen. No narrowing of the left neural foramen. C5-6: Disc degeneration and right paracentral disc protrusion or disc osteophyte complex. Moderate narrowing of spinal canal. Moderate severe right and moderate left neural foraminal narrowing. Potential impingement of the right C6 nerve root. C6-7: Disc degeneration broad-based disc osteophyte complex. Moderate narrowing of spinal canal. Moderate narrowing of bilateral foramina. C7-T1: No spinal canal or neural foraminal narrowing. No spinal canal or neural foraminal narrowing in the visualized upper thoracic spine. Procedure Note Herve Michael MD, PhD - 03/17/2024 For Patients: As a result of the Cures Act, medical imagingexams and procedure reports are released immediately into your electronicmedical record. You may view this report before your referring provider.If you have questions, please contact your health care provider. INDICATION: Cervical radiculopathy. COMPARISON: 02/10/2021. TECHNIQUE: Sagittal T1, T2, and STIR sequences. Axial T2/gradient sequences. FINDINGS: Normal vertebral body facet alignment. No fractures. No vertebral bodyloss of height. No spondylolisthesis. No evidence injury. No suspicious osseous lesions. Normal cord signal. No intradural mass orlesion. C1-2: No spinal canal narrowing. C2-3: No spinal canal or neural foraminal narrowing. C3-4: Disc degeneration. Posterior disc bulge disc osteophyte complexeccentric to the right. Mild narrowing of spinal canal. Moderate severeright and mild left neural foraminal narrowing. Potential impingement ofthe right C4 nerve root. C4-5: Disc degeneration and posterior disc bulging disc osteophytecomplex. No narrowing of spinal canal. Moderate narrowing of the rightneural foramen. No narrowing of the left neural foramen. C5-6: Disc degeneration and right paracentral disc protrusion or discosteophyte complex. Moderate narrowing of spinal canal. Moderate severeright and moderate left neural foraminal narrowing. Potential impingementof the right C6 nerve root. C6-7: Disc degeneration broad-based disc osteophyte complex. Moderatenarrowing of spinal canal. Moderate narrowing of bilateral foramina. C7-T1: No spinal canal or neural foraminal narrowing. No spinal canal or neural foraminal narrowing in the visualized upperthoracic spine. IMPRESSION: 1. Normal alignment. No fractures. 2. Stable cervical spondylosis. 3. Normal cord signal. 4. At C3-4, mild narrowing of the spinal canal. Moderate to severe rightneural foraminal narrowing. Potential impingement of the right C4 nerveroot. 5. At C4-5, moderate narrowing of the right neural foramen 6. At C5-6, moderate narrowing of the spinal canal. Moderate to severeright and moderate left neural foraminal narrowing. Potential impingementof the right C6 nerve root. 7. At C6-7, moderate narrowing of the spinal canal and bilateral neuralforamina Dictated by Herve Michael MD @ 03/17/2024 12:16:44 PM (Electronically Signed) Gerardo Antoine MD MR * EKG 12 LEAD (03/11/2024 11:04 AM CDT) Bharath Ramachandran DO EKG ORD * LA READING EKG - NO CHARGE, COMP ONLY (03/11/2024 11:03 AM CDT) Bharath Ramachandran DO PB - PROVIDER READI NGS * HEMOGLOBIN A1C SCREENING (03/07/2024 9:32 AM CDT) HEMOGLOBIN A1C SCREENING 4.9 <=6.4 % 03/07/2024 9:40 PM CDT [facility] [employer] [facility] Blood BLOOD SPECIMEN / Unknown Venipuncture / Unknown 03/07/2024 9:32 AM CDT 03/07/2024 9:32 AM CDT Narrative [facility] - 03/07/2024 9:40 PM CDT ? (<5.7%) ?Normal ? (5.7% to 6.4%) ? Indicates prediabetes ? (>=6.5%) ? Confirms diabetes Falsely low levels may be seen with: Recent Transfusion, Recent Significant Blood Loss, Hemolytic Diseases, or Falsely elevated levels may be seen with: Untreated Anemias, Splenectomy Bharath Ramachandran DO CHEMISTRY [facility] [address] [place] [address], [place] * (ABNORMAL) LIPID PANEL W REFLEX MEASURED LDL (03/07/2024 9:32 AM CDT) CHOLESTEROL,TOTAL 239(H) 100 - 199 mg/dL 03/07/2024 5:59 PM CDT [facility] Comment: Cholesterol, Total Reference Ranges Desirable <200 mg/dL Borderline 200-239 mg/dL High >=240 mg/dL TRIGLYCERIDES 220(H) <150 mg/dL 03/07/2024 5:59 PM CDT [facility] HDL CHOLESTEROL 43 >40 mg/dL 5:59 PM CDT [facility] NON-HDL CHOLESTEROL 196(H) <145 mg/dl 03/07/2024 5:59 PM CDT [facility] CHOL/HDL RATIO 5.56(H) <4.50 03/07/2024 5:59 PM CDT [facility] LDL CHOLESTEROL 152(H) <=130 mg/dL 03/07/2024 5:59 PM CDT [facility] VLDL CHOLESTEROL 44(H) <=30 mg/dL 03/07/2024 5:59 PM CDT [facility] PROVIDER ORDERED STATUS RANDOM 03/07/2024 5:59 PM CDT [facility] Blood BLOOD SPECIMEN / Unknown Venipuncture / Unknown 03/07/2024 9:32 AM CDT 03/07/2024 9:32 AM CDT Bharath Ramachandran DO CHEMISTRY [facility] [address] [place] [address], * (ABNORMAL) BASIC METABOLIC PANEL (03/07/2024 9:32 AM CDT) SODIUM 141 136 - 145 mmol/L 03/07/2024 5:59 PM CDT [facility] POTASSIUM 4.5 3.5 - 5.1 mmol/L 03/07/2024 5:59 PM CDT [facility] CHLORIDE 108(H) 98 - 107 mmol/L 03/07/2024 5:59 PM CDT [facility] CO2,TOTAL 24 22 - 29 mmol/L 03/07/2024 5:59 PM CDT [facility] ANION GAP 9 5 - 18 03/07/2024 5:59 PM CDT [facility] GLUCOSE 100(H) 70 - 99 mg/dL 03/07/2024 5:59 PM CDT [facility] CALCIUM 9.5 8.8 - 10.2 mg/dL 03/07/2024 5:59 PM CDT [facility] BUN 18 8 - 23 mg/dL 03/07/2024 5:59 PM CDT [facility] CREATININE 1.09 0.70 - 1.20 mg/dL 03/07/2024 5:59 PM CDT [facility] BUN/CREAT RATIO 17 10 - 20 5:59 PM CDT [facility] eGFR 70(L) >90 mL/min/1.7 3m2 03/07/2024 5:59 PM CDT [facility] Comment:As of 2022, eG FR is calculated by the CKD-EPI creatinine equation without race adjustment. ??eGFR can be influenced by muscle mass, exercise, and diet. ??The reported eGFR is an estimation only and is only applicable if the renal function is stable. Blood BLOOD SPECIMEN / Unknown Venipuncture / Unknown 03/07/2024 9:32 AM CDT 03/07/2024 9:32 AM CDT Bharath Ramachandran DO CHEMISTRY [facility] [address] [place] [address], * PSA TOTAL (DIAGNOSTIC) (02/05/2024 3:28 PM CDT) PSA TOTAL (DIAGNOSTIC) 2.36 <4.00 ng/mL 02/06/2024 1:42 PM CDT [facility] Blood BLOOD SPECIMEN / Unknown Venipuncture / Unknown 02/05/2024 3:28 PM CDT 02/05/2024 3:28 PM CDT Narrative [facility] - 02/06/2024 1:42 PM CDT The test method changed on 05/01/2023. If this test has been used for serial monitoring, rebaselining is recommended. Rebaselining consists of 2 measurements, collected 3-6 weeks apart. The Carmela Elecsys total PSA assay is an electrochemiluminescence immunoassay ECLIA performed on the Carmela Mamta e immunoassay analyzers. Values obtained with different assay methods may be different and cannot be used interchangeably. Bharath Ramachandran DO CHEMISTRY Performing Organization Address City/[facility]/ZIP Co de Phone Number [facility] [address] [place] [address], * LC HCV ANTIBODY RFX TO QUANT PCR (03/09/2023 7:54 AM CDT) HCV Ab Non Reactive Non Reactive 03/13/2023 1:10 PM CDT [facility] Blood BLOOD SPECIMEN / Unknown Venipuncture / Unknown 03/09/2023 7:54 AM CDT 03/09/2023 7:56 AM CDT Narrative [facility] - 03/13/2023 1:10 PM CDT Performed at: ??[address] ??[id number] Estimator Printing: Eliezer Alfaro MD, Phone: ??[phone] Bharath Ramachandran DO LABORATORY [facility] ([facility]) [address] [place] [id number], * OCCULT BLOOD IFOBT STOOL (09/20/2021 11:46 AM BEATER ENGINEER) STOOL BLOOD ,IFOBT Negative Negative 09/30/2021 9:29 AM BEATER ENGINEER [facility] Stool STOOL SPECIMEN / Unknown Non-Blood / Unknown 09/20/2021 11:46 AM BEATER ENGINEER 09/28/2021 11:47 AM BEATER ENGINEER Bharath Ramachandran DO LABORATORY [facility] [address] [place] [address], from Last 3 Months or Most Recently Relevant to Health Maintenance Advance Directives * Full Code (Latest Code Status on File) Date Activated Date Inactivated Comments 04/19/2023 10:21 AM 04/19/2023 3:56 PM Question Answer Comments Code Status Discussion: Unable to Assess Preferences, Provider to review later * Full Code Date Activated Date Inactivated Comments 03/29/2017 8:45 PM 03/30/2017 3:40 PM * Full Code Date Activated Date Inactivated Comments 03/29/2017 10:52 AM 03/29/2017 8:14 PM Question Answer Comments Code Status Discussion: Discussed Care Teams Health Science Writer Relationship Specialty Start Date End Date Bharath Ramachandran DO [address] [place] [address] PCP - General Family Practice 08/31/17
== END 2024-03-28 12:17 | disposition home or self-care (01) ==
LOC: INJ CL 12:17
PROVIDERS: PCP Family Medicine; Visit Provider Family Medicine
DX: M51.36 Other intervertebral disc degeneration, lumbar region (principal); M54.16 Radiculopathy, lumbar region
CPT/HCPCS: 62323; J0702; Q9966

== ENCOUNTER 2024-05-27 12:46 | Outpatient (CLI) | payer MEDICARE, BC, SELFPAY ==
--- OUTSIDE RECORDS SUMMARY | 2024-05-27 12:49 | XMS_ITS | Continuity of Care Document ---
Author Organization [facility] Address [address] [facility] [address] [place] [address] Phone Care Team Providers Care Casting Technician Name Role Phone Moises Lopez MD Unavailable Unavailable Allergies, Adverse Reactions, Alerts Substance Reaction Status Criticality itraconazole Active No Information Medications Medication Instructions Dosage Effective Dates (start - stop) Status Comments gabapentin 300 mg capsule take 1 capsule by oral route every bedtime 300 MG - Active PRESERVISION AREDS (unknown strength) take 2 tablet by Oral route every day Not Available - Active aspirin 81 mg tablet,delayed release take 1 tablet by oral route every day 81 MG - Active omeprazole 20 mg tablet,delayed release take 1 Tablet by Oral route every day 1 Tablet - Active ranitidine 150 mg tablet take 2 Tablet by oral route every bedtime - Active PROBIOTIC (unknown strength) take 1 Capsule by Oral route every day Not Available - Active ibuprofen 200 mg tablet take 2 tablet by oral route every 6 hours as needed with food 400 MG - Active Procedures Procedure Date Office/Outpatient Visit, Est Office/Outpatient Visit, New Routine Venipuncture Specimen Handling [...] [address], [place], [address], [place] tel:[phone] [facility] , Follow Up of Musculoskele jorge alberto pain (chief complaint) Generalized osteoarthrit isLeg weaknessCarp al tunnel syndromeDupu ytren's contracture 5 [place]. [facility] [address], [place], [address], [place]. tel:[phone] Referring Provider: Moises Peter, [facility] [address], [place], [address]. [phone] Office/Outpa tient Visit, New [facility] , [address], [place], [address], [place] tel:[phone] [facility] , Musculoskele jorge alberto pain (chief complaint) TinglingFati gueMuscle painGERDGene ralized osteoarthrit is [place]. [facility] [address], [place], [address], [place]. tel:[phone] Referring Provider: Moises Peter, [facility] [address], [place], [address]. tel:[phone] [facility] , [address], [place], [address], [place] tel:[phone] [facility] , No Information John De Leon. [facility] [address], [place], [address], [place]. tel:[phone] Family History Family Member Type Diagnosis Age At Onset Father Problem (finding) degenerative disorder o f macula Mother Problem (finding) degenerative disorder o f macula Payers Payer name Insurance type Covered green party ID Chuck benavidez(s) [employer] Medicare Advantage/Plat inum Blue BL [id number] Social History Type Description Quantity Date Captured [...]
--- OUTSIDE RECORDS SUMMARY | 2024-05-27 12:49 | XMS_ITS | Continuity of Care Document ---
Author Organization [facility] Address [address] [place] [address] Phone Care Team Providers Care Asphalt Paver Operator Name Role Phone Jocelyn Leyva Unavailable Unavailable [...] AREDS (unknown strength) Not Available - Active ZANTAC (unknown strength) Not Available - Active OMEPRAZOLE (unknown strength) Not Available - Active ASPIRIN (unknown strength) Not Available - Active Procedures [...] Copied on Encounter [facility], [address], [place], [place], [id number], [place] tel:[phone] [facility] - No Information 3-201 9 Angela Jocelyn. [facility], [address], [place], [place], [facility], [place]. tel:[phone] Office/Outpa tient Visit,Est, Mod [facility], [address], [place], [place], [id number], [place] tel:[phone] [facility] - Orly Radiculopath y, lumbosacral region Jan-0 8-201 9 Angela Jocelyn. [facility], [address] [place] [address] [address], [place], [address], [place]. tel:[phone] Referring Provider: Gerardo Mathews, [facility], [place], [address]. tel:[phone] [facility], [address] [place] [address], [id number], [place] tel:[phone] [facility] - [place] Encounter for other specified surgical aftercare 0 7 Transfeldt Ensor. [facility], [address], [facility] [address], [place], [id number], [place]. tel:[phone] Referring Provider: Gerardo Mathews, [employer] Edith [facility], [place], [address]. tel:[phone] [facility], [address], [place], [place], [id number], [place] tel:[phone] [facility] No Information 5 7 Transfeldt Ensor. [facility], [address] [place] [address], [facility] [address], [place], [id number], [place]. tel:[phone] Referring Provider: Gerardo Mathews, [employer] [facility], [place], [address]. tel:[phone] Office/Outpa tient Visit,New, Mod [facility], [address], [place], [place], [id number], [place] tel:[phone] [facility] Kenny Villalba Spinal stenosis, lumbar region 6 7 Transfeldt Ensor. [facility], [address] [place] [address], [address], [id number], . tel:[phone] Referring Provider: Gerardo Mathews, [facility] [address] [facility], [place], [address]. tel:[phone] Office/outpa tient visit,new, [facility] Z [facility], [address] [place], [place] [address], [address], tel:[phone] [facility] Orly No Information 0 0 Transfeldt Ensor. [facility] [place], [address] [place] [address], [address], [id number], . tel:[phone] Family History Family Member Type Diagnosis Age At Onset No Information Payers Payer name Insurance type Covered constitution party ID Chuck benavidez(s) [facility] [id number] Medicare [facility] BL [id number] Social History Type Description Quantity Date Captured Comments Alcohol Use Details Unknown Caffeine Use Details Unknown Tobacco Use Status No Information Smoking Status No Information Sex Male Chief Complaint And Reason For Visit No Information Reason For Referral Reason For Referral No Information Plan Of Treatment Date Type Action Status Appointment Barrie Dinh BOOKED Future Order: Radiology Order AP -Tse-Ywwj-Hiy Lum (APLatFlExL), Ordered on: Ordered Future Order: [...]
--- OUTSIDE RECORDS SUMMARY | 2024-05-27 12:49 | XMS_ITS | Clinical Summary ---
Author Organization [facility] Address [address] [place] [address] Care Team Providers Care Automotive Exhaust Emissions Technician Name Role Phone Elsewhere, Pcp Primary Care Provider Unavailabl e Source Comments Patient records contain information from all sites at [facility]. For routine questions regarding patient records, call [phone] during business hours, M-F 8:00 AM - 5:00 PM Central Time. Record requests for emergency care only can be directed to [phone] at any time.[facility] Allergies Active Allergy Reactions Criticality Noted Date [...] mouth every other day. 01/02/2019 Active vitamins A,C,G-uyky-mduzoc (ICAPS AREDS) 14,320 Units-226 mg-200 Units per [...] CDT Office Visit Department of Dermatology in [place], [place] [address] [place] [address] Karena Maguire M.D., M.S. Keratosis Seborrheic Inflamed (Primary Dx); Keratosis Actinic Discharge Disposition: Home or Self Care from Last 3 Months Social History Tobacco [...] Comments Blood Pressure 160/88 12/31/2020 11:00 AM BENCH MOLDER APPRENTICE Pulse 73 12/31/2020 11:00 AM BENCH MOLDER APPRENTICE Temperature - - Respiratory Rate - - Oxygen Saturation - - Inhaled Oxygen Concentration - - Weight - - Height - - Body Mass Index - - Plan of Treatment Health Maintenance Due Date Last Done Comments Hepatitis C Screening 1945 Zoster Vaccines (1 of 2) 1996 DTaP,Tdap,and Td Vaccines (2 - Td or Tdap) 08/10/2018 08/10/2008 Depression Screening (Annual PHQ-2) 11/05/2023 Fall Risk Screen (Annual) 11/05/2023 COVID-19 Vaccine (2022-2 4 season) 2024 10/08/2023, 06/29/2023, 07/28/2022, Additional history exists Influenza Vaccine (#1) 2024 , 08/17/2021, 08/19/2020, Additional history exists Pneumococcal vaccine (65+ years) Completed 10/21/20 15, 04/02/2012 Medical Devices Implanted Type Area Mica Spreader Device Identifier Shelf Expiration Date Model / Serial / Lot Hip Implant- [id number] Implanted:02/03 (Quantity not on file) Hip Implant Left: Hip Care Teams Automotive Exhaust Emissions Technician Relationship Specialty Start Date End Date Elsewhere, Pcp PCP - General Family Medicine 02/05/19
--- OUTSIDE RECORDS SUMMARY | 2024-05-27 12:49 | XMS_ITS ---
Author Organization [facility] Address [address] [place] [address] Care Team Providers Care Weaving Teacher Name Role Phone Unavailable Unavailable Unavailable Surgery Details Not on file Complications Check Surgery Details section. Procedure Estimated Blood Loss Check Surgery Details section. Procedure Findings Check Surgery Details section. Procedure Specimens Taken Check Surgery Details section.
--- OUTSIDE RECORDS SUMMARY | 2024-05-27 12:49 | XMS_ITS | Clinical Summary ---
Author Organization [facility] Address [place], [place] [address] Care Team Providers Care Hvac Sales Representative Name Role Phone MadieBharath Karla Primary Care Provider Allergies Active Allergy Reactions Criticality Noted Date Comments Ezetimibe Rash,Myalgia Medium 02/22/2010 sporonex Zetia Itraconazole Rash Medium sporonox Melon Shortness Of Breath,Dyspnea Medium 03/29/2017 Melon Flavor 04/01/2009 Simvastatin Myalgia Medium 02/22/2010 Elevated blood glucose as well.Has tried all statins Spice Flavor Anaphylaxis 04/01/2009 pinto Medications Medication Sig Dispensed Refills Start Date End Date Status Vit A,C,Q-Bqlu-Viktxz (ICAPS AREDS) [phone] ltru-yf-akfr cap Take 1 tablet by mouth 2 times daily. Active aspirin (ECOTRIN) 81 mg enteric coated tablet Takes 1 tablet every other day 0 01/02/2019 Active timolol maleate (TIMOPTIC) 0.5 % ophthalmic solution Place 1 Drop into right eye two times daily. 5 01/15/2019 Active tamsulosin (FLOMAX) 0.4 mg capsuleIndications:Be nign prostatic hyperplasia with weak urinary stream Take 1 Capsule (0.4 mg) by mouth once daily after a meal. 90 Capsule 1 09/19/2021 Active finasteride (PROSCAR) 5 mg tablet Take 5 mg by mouth once daily. 04/11/2022 Active tiZANidine (ZANAFLEX) 2 mg tabletIndications:Spa sm of muscle of lower back TAKE 1 TABLET (2 MG) BY MOUTH EVERY 6 HOURS IF NEEDED FOR MUSCLE SPASM. 90 Tablet 1 07/11/2022 Active omeprazole (PRILOSEC) 40 mg Delayed-Release capsuleIndications:Ch ronic GERD Take 1 Capsule (40 mg) by mouth once daily before a meal. 90 Capsule 4 03/07/2024 Active traMADoL (ULTRAM) 50 mg tabletIndications:Lum bar radiculopathy,Lumbar foraminal stenosis,Lumbar facet arthropathy Take 1 Tablet (50 mg) by mouth 3 times daily if needed for Pain. 24 Tablet 1 05/19/2024 Active Active Problems Problem Noted Date Diagnosed Date [...] Overview: EGD 04/2021 hiatal hernia, no Rosenberg's EGD 03/2024 relux, HH, no Rosenberg's Neuroma 04/04/2009 CAD (coronary artery disease) 08/10/2008 Unspecified sleep apnea Hyperlipidemia LDL goal < 100 Overview: ldl goal <100 (per cardiology 03/12/07) Impaired fasting glucose Resolved Problems Problem Noted Date Diagnosed Date Resolved Date Chest pain, unspecified 03/2023 Encounters Date Type Department Care Team Description 05/19/2024 1:00 PM CDT Office Visit [facility] [address] [facility] [place] [address] Gerardo Antoine MD Musculoskeletal Problem (Follow up back pain more on the right side now) 05/19/2024 Travel 05/14/2024 Telephone [facility] [address] [facility] [place] [address] Gerardo Antoine MD Appointment 05/06/2024 10:30 AM CDT Ancillary Procedure [facility] [address] [place] [address] 05/06/2024 10:15 AM CDT Orders Only [facility] [address] [place] [address] Lab, [place] Lab 05/06/2024 Telephone [facility] [address] [place] [address] Gerardo Antoine MD Questions 05/06/2024 Travel 04/30/2024 [place] [facility] [address] [place] [phone] Jose E Fraire MD <No scans attached> 04/28/2024 Telephone [facility] [address] [place] [phone] Cardiology, Anw Cardiology Appointment 04/28/2024 Telephone [facility] [address] [place] [address] Bharath Guerra DO Appointment (Lipid Clinic) 04/25/2024 Transcribe Orders [facility] [address] [place] [address] Jerry Almanza MD 04/16/2024 Telephone [facility] [address] [place] [address] Bharath Guerra DO question 04/16/2024 Telephone [facility] [address] [place] [address] Gerardo Antoine MD INFORMATION LETTER 04/06/2024 Telephone [facility] [address] [place] [address] Kayy Martins, RALPH Results 04/05/2024 9:30 AM CDT Office Visit [facility] [address] [place] [address] Lele Govea MD Dysuria (Dysuria, frequent urination, constant burning sensation from perineum to tip of urethra not exclusive to times of urination per patient. Intermittent passing of blood clots/hematuria. ) 04/05/2024 Travel 04/01/2024 8:15 AM CDT Ancillary Procedure [facility] [address] [place] [address] 04/01/2024 Travel 03/28/2024 1:00 PM CDT Office Visit [facility] at [facility] [address] [place] [address] Gerardo Antoine MD Procedure (L2-3 ILESI) 03/27/2024 9:30 AM CDT Office Visit [facility] [address] [facility] [address] Pawan Duong MD 03/27/2024 Travel 03/20/2024 Telephone [facility] [place] [address] Pawan Duong MD Appointment Reminder (EGD 03/27/24) 03/19/2024 10:30 AM CDT Ancillary Procedure [facility] [address] [place] [facility] [place] [address] 03/19/2024 9:00 AM CDT Procedure Only [facility] [address] [facility] [place] [address] Cardiovascular Diagnostic Testing (Nuclear... 03/19/2024 Orders Only [facility] Scanner <No scans attached> 03/19/2024 Orders Only [facility] [place] [address] Bharath Guerra DO <No scans attached> 03/19/2024 Telephone [facility] [address] [place] [facility] [address] Bharath Guerra DO Referral 03/19/2024 Travel 03/17/2024 8:45 AM CDT Ancillary Procedure [facility] [place] [address] 03/17/2024 8:00 AM CDT Ancillary Procedure [facility] [place] [address] 03/17/2024 Telephone [facility] [address] [place] [address] Gerardo Antoine MD Results 03/17/2024 Travel 03/11/2024 Orders Only [facility] [address] [place] [address] Bharath Guerra DO 1 scan: (1-Ord) NFLD-EKG-03/07/24 03/07/2024 8:35 AM CDT Office Visit [facility] [address] [place] [address] Bharath Guerra DO Medicare ANNUAL (subsequent) Visit (78 yr/); Kidney Problem; Chest Pain (sporatic- since about December goes into arm ) 03/07/2024 Travel 02/28/2024 10:00 AM CDT Office Visit [facility] [address] [facility] [place] [place] [address] Gerardo Antoine MD Musculoskeletal Problem (Follow up back pain, has been seen in the past 2021); Consult (Neck and right shoulder pain ) 02/28/2024 Travel from Last 3 Months Immunizations Name Administration Dates Next Due COVID-19 vaccine (Moderna 100mcg/0.5mL) DESHAWN FOLEY 01/21/2021,12/24/2020 Hepatitis A (Adult) 10/27/2005,03/08/2005 Influenza A [...] Sign Reading Time Taken Comments Blood Pressure 113/71 05/19/2024 1:06 PM CDT Pulse 70 05/19/2024 1:06 PM CDT Temperature 36.6 ??C (97.8 ??F) 05/19/2024 1 :06 PM CDT Respiratory Rate 18 04/05/2024 9:52 AM CDT Oxygen Saturation 95% 05/19/2024 1:0 6 PM CDT Inhaled Oxygen Concentration - - Weight 90.6 kg (199 lb 11.2 oz) 024 9:52 AM CDT Height 176.5 cm (5' 9.49) 03/07/2024 8 :33 AM CDT with shoes Body Mass Index 29.08 03/07/2024 8:33 AM CDT Plan of Treatment Upcoming Encounters Date Type Department Care Team (Late st Contact Info) Description 05/27/2024 1:00 PM CDT Office Visit [facility] [address] [place] [address] Gerardo Antoine MD [address] [place] [address] Arrived 07/15/2024 8:30 AM CDT Office Visit [facility] [address] [place] [address] Jose E Fraire MD [address] [place] [address] 07/28/2024 1:00 PM CDT Office Visit [facility] [address] [place] [address] Gerardo Antoine MD [address] [place] [address] Health Maintenance Due Date Last Done Comments Zoster (shingles) series for age 50+ (1 of 2) 1996 Tetanus booster 08/10/2018 08/10/2008 COVID-19 vaccine series ( season) 2024 10/08/2023, 06/29/2023, 07/28/2022, Additional history exists Influenza for age 65+ 07/06/2024 08/14/2022 , [...] screening for ag e 18-79 Completed 03/09/2023 Procedures Procedure Name Priority Date/Time Associated Diagnosis Comments AMB EPIDURAL STEROID INJECTION Routine 0 05/27/2024 8:16 AM CDT Lumbar radiculopathy Lumbar foraminal stenosis Lumbar facet arthropathy CT ABDOMEN PELVIS UROGRAM WWO Routine 11:21 AM CDT Unspecified hydronephrosis CREATININE,ISTAT Routine 05/06/2024 10:45 AM CDT Observation or evaluation for suspected condition URINALYSIS MICROSCOPIC STAT 9:43 AM CDT Urinary tract infection symptoms URINE CULTURE Routine 04/05/2024 9:43 AM CDT Urinary tract infection symptoms UA W/ SEDIMENT EXAM REFLEXED PER CRITERIA STAT 04/05/2024 9:43 AM CDT Urinary tract infection symptoms US ABDOMEN LIMITED GALLBLADDER Routine 0 04/01/2024 8:25 AM CDT Abdominal pain, RUQ (right upper quadrant) AMB EPIDURAL STEROID INJECTION Routine 0 03/28/2024 12:00 AM CDT DDD (degenerative disc disease), lumbar Lumbar foraminal stenosis Lumbar facet arthropathy Lumbar radiculopathy PATH TISSUE EXAM Routine 03/27/2024 10:06 AM CDT Gastroesophageal reflux disease without esophagitis ENDOSCOPY 03/27/2024 9:28 AM CDT ESOPHAGOGASTRODUODENOSCOPY Routine 03/27 9:23 AM CDT Gastroesophageal reflux disease without esophagitis Dysphagia, unspecified type NM CARDIAC MPI STRESS TEST Routine 03/19 11:00 AM CDT Chest tightness Coronary artery disease due to calcified coronary lesion TN CV STRS TST XERS&/OR RX C ONT [...] Routine 03/11/2024 11:04 AM CDT Chest tightness TN READING EKG - NO CHARGE, COMP ONLY Routine 03/11/2024 11:03 AM CDT Chest tightness HEMOGLOBIN A1C SCREENING Routine 024 9:32 AM CDT Impaired fasting glucose BASIC METABOLIC PANEL Routine 03/07/2024 9:32 AM CDT Impaired fasting glucose LIPID PANEL W REFLEX MEASURE D LDL Routine 03/07/2024 9:32 AM CDT Hyperlipidemia LDL goal < 100 LC HCV ANTIBODY RFX TO QUANT PCR Routine 03/09/2023 7:54 AM CDT Need for hepatitis C screening test OCCULT BLOOD IFOBT STOOL Routine 021 11:46 AM 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 Bilateral parapelvic renal cysts, tlcdw-qljafyc-dhfv-left. No hydronephrosis. 2. 1.4 cm right lateral bladder diverticulum. 3. Colonic diverticulosis and hepatic steatosis. Please note that all CT scans at this facility use dose modulation, iterative reconstruction, and/or weight-based dosing when appropriate to reduce radiation dose to as low as reasonably achievable. Dictated by Lars Thompson MD @ 05/07/2024 3:50:33 PM (Electronically Signed) Narrative 05/07/2024 3:50 PM CDT For Patients: ??As a result of the 21st Century Cures Act, medical imaging exams and procedure reports are released immediately into your electronic medical record. ??You may view this report before your referring provider. ??If you have questions, please contact your health care provider. INDICATION: Unspecified hydronephrosis. TECHNIQUE: CT abdomen and pelvis urogram without and with Visipaque 320 100 ml contrast. Contrast images were obtained in the nephrographic and delayed phases. COMPARISON: Ultrasound 04/01/2024 FINDINGS: KIDNEYS: The unenhanced images demonstrate no kidney or ureteral stones. The kidneys are normal in caliber and demonstrate normal uptake and excretion of IV contrast. No masses. Right parapelvic cyst is present which measures 2.2 cm. Small left parapelvic cysts also noted. Incidental peristaltic change to the left ureter. URINARY BLADDER: Incomplete bladder distention and incomplete opacification with contrast. Small right lateral diverticulum is present measuring 1.4 cm. The prostate is mildly prominent and results in mild mass effect upon the inferior bladder. OTHER: Diffuse low-attenuation of the hepatic parenchyma noted. Benign low- density foci are present measuring up to 1.2 cm representing small cysts or hemangiomas. Gallbladder normal. Normal spleen. Normal adrenal glands. Pancreas normal. Normal gallbladder. Atherosclerotic disease. Colonic diverticulosis. No diverticulitis. No bowel obstruction. Left hip replacement hardware. Degenerative changes lumbar spine. No acute fracture. Procedure Note Lars Thompson MD - 05/07/2024 For Patients: As a result of the Cures Act, medical imagingexams and procedure reports are released immediately into your electronicmedical record. You may view this report before your referring provider.If you have questions, please contact your health care provider. INDICATION: Unspecified hydronephrosis. TECHNIQUE: CT abdomen and pelvis urogram without and with Visipaque 320 100 mlcontrast. Contrast images were obtained in the nephrographic and delayedphases. COMPARISON: Ultrasound 04/01/2024 FINDINGS: KIDNEYS: The unenhanced images demonstrate no kidney or ureteral stones.The kidneys are normal in caliber and demonstrate normal uptake andexcretion of IV contrast. No masses. Right parapelvic cyst is presentwhich measures 2.2 cm. Small left parapelvic cysts also noted. Incidentalperistaltic change to the left ureter. URINARY BLADDER: Incomplete bladder distention and incompleteopacification with contrast. Small right lateral diverticulum is presentmeasuring 1.4 cm. The prostate is mildly prominent and results in mildmass effect upon the inferior bladder. OTHER: Diffuse low-attenuation of the hepatic parenchyma noted. Benignlow- density foci are present measuring up to 1.2 cm representing smallcysts or hemangiomas. Gallbladder normal. Normal spleen. Normal adrenalglands. Pancreas normal. Normal gallbladder. Atherosclerotic disease.Colonic diverticulosis. No diverticulitis. No bowel obstruction. Left hipreplacement hardware. Degenerative changes lumbar spine. No acutefracture. IMPRESSION: 1. Bilateral parapelvic renal cysts, blblp-jvglmpf-tohb-left. Nohydronephrosis. 2. 1.4 cm right lateral bladder diverticulum. 3. Colonic diverticulosis and hepatic steatosis. Please note that all CT scans at this facility use dose modulation,iterative reconstruction, and/or weight-based dosing when appropriate toreduce radiation dose to as low as reasonably achievable. Dictated by Lars Thompson MD @ 05/07/2024 3:50:33 PM (Electronically Signed) Jerry Almanza MD CT * (ABNORMAL) CREATININE,ISTAT (05/06/2024 10:45 AM CDT) CREATININE, POCT 1.30(H) 0.57 - 1.11 mg/dL 05/06/2024 10:49 AM CDT [facility] Comment:Caution: Patients ta brad Hydroxyurea have falsely increased iStat Creatinine results. Verify creatinine results ordering a Creatinine (83663.2) eGFR 57(L) >90 mL/min/1.7 3m2 05/06/2024 10:49 AM CDT [facility] Comment:As of 2022, eG FR is calculated by the CKD-EPI creatinine equation without race adjustment. eGFR can be influenced by muscle mass, exercise, and diet. The reported eGFR is an estimation only and is only applicable if the renal function is stable. Blood BLOOD SPECIMEN / Unknown 05/06/2024 10:45 AM CDT 05/06/2024 10:49 AM CDT Bharath Guerra DO CHEMISTRY [facility] [address] [place] [address], * (ABNORMAL) URINALYSIS MICROSCOPIC (04/05/2024 9:43 AM CDT) RBC 51-100(A) 0-2, None Seen /HPF 04/05/2024 9:54 AM CDT [facility] WBC >100(A) 0-2, 3-5, None Seen /HPF 04/05/2024 9:54 AM CDT [facility] BACTERIA Few None Seen, Rare, Few Bacteria/ HPF 04/05/2024 9:54 AM CDT [facility] EPITHELIAL CELLS Few None Seen, Few Epi/HPF 04/05/2024 9:54 AM CDT [facility] Mucus Present 04/05/2024 9:54 AM CDT [facility] Urine URINE SPECIMEN / Unknown Non-Blood / Unknown 04/05/2024 9:43 AM CDT 04/05/2024 9:43 AM CDT Osvaldo Krause URINE Performing Organization Address City/[facility]/ZIP Co de Phone Number [facility] [address] [place] [address] * URINE CULTURE [68023.2] (04/05/2024 9:43 AM CDT) CULTURE No growth (<1,000 CFU/mL) 04/06/2024 1:12 PM CDT [facility] Urine URINE SPECIMEN / Unknown Non-Blood / Unknown 04/05/2024 9:43 AM CDT 04/05/2024 9:43 AM CDT Osvaldo Krause MICROBIOLOGY Performing Organization Address [facility]/ZIP Co de Phone Number [facility] [address] [place] [address], * (ABNORMAL) UA W/ SEDIMENT EXAM REFLEXED PER CRITERIA (UA w/ reflex micro if positive) [40415.2] (04/05/2024 9:43 AM CDT) COLOR Yellow Yellow Color 04/05/2024 9:50 AM T [facility] CLARITY Slightly Cloudy(A) Clear Clarity 04/05/2024 9:50 AM T [facility] SPECIFIC GRAVITY,URINE <=1.005(A) 1.010, 1.015, 1.020, 1.025 04/05/2024 9:50 AM [facility] PH,URINE 6.0 6.0, 7.0, 8.0, 5.5, 6.5, 7.5, 8.5 04/05/2024 9:50 AM [facility] UROBILINOGEN, QUALITATIVE Normal Normal EU/dl 04/05/2024 9:50 AM [facility] PROTEIN, URINE 30(A) Negative mg/dL 04/05/2024 9:50 AM CDT [facility] GLUCOSE, URINE Negative Negative mg/dL 04/05/2024 9:50 AM CDT [facility] KETONES,URINE Negative Negative mg/dL 04/05/2024 9:50 AM CDT [facility] BILIRUBIN,URI NE Negative Negative 04/05/2024 9:50 AM CDT [facility] OCCULT BLOOD,URINE Large(A) Negative 04/05/2024 9:50 AM CDT [facility] NITRITE Negative Negative 04/05/2024 9:50 AM CDT [facility] LEUKOCYTE ESTERASE Large(A) Negative 04/05/2024 9:50 AM CDT [facility] Urine URINE SPECIMEN / Unknown Non-Blood / Unknown 04/05/2024 9:43 AM CDT 04/05/2024 9:43 AM CDT Osvaldo Giovanni Krause URINE Performing Organization Address [facility]/State/ZIP Co de Phone Number [facility] [address] [place] [address] * US ABDOMEN LIMITED GALLBLADDER (04/01/2024 8:25 AM CDT) Anatomical Region Laterality Modality Abdomen Ultrasound 04/01/2024 10:2 9 AM CDT Impressions 04/01/2024 10:29 AM CDT Moderate diffuse hepatic steatosis with incidental simple cyst left hepatic lobe. Normal gallbladder. Right renal pelviectasis. Dictated by Lars Thompson MD @ 04/01/2024 10:29:00 AM (Electronically Signed) Narrative 04/01/2024 10:29 AM CDT For Patients: ??As a result of the 21st Century Cures Act, medical imaging exams and procedure reports are released immediately into your electronic medical record. ??You may view this report before your referring provider. ??If you have questions, please contact your health care provider. INDICATION: Right upper quadrant abdominal pain COMPARISON: none TECHNIQUE: Real time faith scale imaging and color Doppler analysis was performed of the right upper quadrant. FINDINGS: The patient`s liver is of normal size and has increased echogenicity. There is a simple cyst within the left hepatic lobe measuring 0.7 1.5 x 1.2 cm. There is a normal appearance of the hepatic IVC and proximal abdominal aorta. There is no evidence of ascites. The gallbladder is of normal size and there is no evidence of intraluminal stones or sludge. ??The gallbladder wall measures 2 mm in thickness. ??The common bile duct is of normal size and measures 4 mm in diameter at the level of the erika hepatis. ??The pancreas appears normal. Right renal pelvis is distended measuring 1.3 cm. The right kidney measures 11.5 cm in length. ?? Procedure Note Lars Thompson MD - 04/01/2024 For Patients: As a result of the Cures Act, medical imagingexams and procedure reports are released immediately into your electronicmedical record. You may view this report before your referring provider.If you have questions, please contact your health care provider. INDICATION: Right upper quadrant abdominal pain COMPARISON: none TECHNIQUE: Real time faith scale imaging and color Doppler analysis was performed ofthe right upper quadrant. FINDINGS: The patient`s liver is of normal size and has increased echogenicity.There is a simple cyst within the left hepatic lobe measuring 0.7 1.5 x1.2 cm. There is a normal appearance of the hepatic IVC and proximalabdominal aorta. There is no evidence of ascites. The gallbladder is ofnormal size and there is no evidence of intraluminal stones or sludge.The gallbladder wall measures 2 mm in thickness. The common bile duct isof normal size and measures 4 mm in diameter at the level of the portahepatis. The pancreas appears normal. Right renal pelvis is distendedmeasuring 1.3 cm. The right kidney measures 11.5 cm in length. IMPRESSION: Moderate diffuse hepatic steatosis with incidental simple cyst lefthepatic lobe. Normal gallbladder. Right renal pelviectasis. Dictated by Lars Thompson MD @ 04/01/2024 10:29:00 AM (Electronically Signed) Bharath Guerra DO US * AMB EPIDURAL STEROID INJECTION (03/28/2024 12:00 AM CDT) Gerardo Antoine MD NEUROLOGY ORD * PATH TISSUE EXAM (03/27/2024 10:06 AM CDT) Case Report Pathology Report ?Case: [id number] ? Authorizing Provider: ??Pawan Duong MD ?? Collected: ? 03/27/2024 1006 ? Ordering Location: ? [facility] ?? Received: ?03/27/2024 1344 ? Clinic ? Pathologist: ? Natalia, Erlin Tolentino, ? MD ? Specimens: ?? A) - Stomach,antrum and body random 5-point biopsies ? B) - Distal Esophagus Biopsy ? C) - Mid Esophagus Biopsy ? 03/28/2024 12:55 PM CDT [facility] Final Diagnosis A) STOMACH, ANTRUM AND BODY, BIOPSY: 1. Normal gastric antral and body mucosae 2. Negative for Helicobacter B) ESOPHAGUS, DISTAL, BIOPSY: 1. Inflammatory changes consistent with reflux esophagitis 2. Gastric cardio-oxyntic type mucosa with nonspecific reactive changes 3. Negative for eosinophilic esophagitis, intestinal metaplasia and dysplasia C) ESOPHAGUS, MID, BIOPSY: 1. Normal esophageal squamous mucosa 2. Negative for reflux changes and eosinophilic esophagitis 3. 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 03/28/2024 12:55 PM CDT [facility] Gross Description A) Received in formalin are 6 barrow mucosal fragments ranging from 2 mm to 6 mm in greatest dimension, which are entirely submitted in one cassette. It is labeled with the patient's name and designated A. B) Received in formalin are 4 barrow mucosal fragments ranging from 2 mm to 6 mm in greatest dimension, which are entirely submitted in one cassette. It is labeled with the patient's name and designated B. C) Received in formalin are 4 barrow mucosal fragments ranging from 3 mm to 6 mm in greatest dimension, which are entirely submitted in one cassette. It is labeled with the patient's name and designated C. Hyacinth Hong 03/27/2024 9:23 PM 03/28/2024 12:55 PM CDT [facility] Microscopic Description The final diagnosis is based on microscopic examination of appropriate sections of all specimens. 03/28/2024 12:55 PM CDT [facility] Additional Information Interpreted at [facility] - [address] [address] 03/28/2024 12:55 PM CDT [facility] Other (Stomach,antrum and body random 5-point biopsies) Non-Blood / Unknown 03/27/2024 10:06 AM CDT 03/27/2024 1:44 PM CDT Specimen (specimen) (Distal Esophagus Biopsy) Non-Blood / Unknown 03/27/2024 10:08 AM CDT 03/27/2024 1:44 PM CDT Specimen (specimen) (Mid Esophagus Biopsy) 03/27/2024 10:10 AM CDT 03/27/2024 1:44 PM CDT Pawan Duong MD PATHOLOGY/CYTOLOG Y [facility] LABORATORY [address] [place] [address], * ENDOSCOPY (03/27/2024 9:28 AM CDT) 03/27/2024 9:28 AM CDT Narrative Transcriptions Pawan Duong MD - 03/27/2024 10:30 AM CDT Patient Name: Lonnie Dinh Procedure Date: 03/27/2024 Gender: Male Date of : 1945 Admit Type: Outpatient Procedure: Upper GI endoscopy Proceduralist: Pawan Duong MD , Melvina Welch (Nurse), Laurie Saab (Nurse) Referring MD: Bharath Guerra Indications/Pre-Op Diagnosis: Dysphagia, syncope and 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 The endoscope [id number] was introduced through the mouth, and advanced [...] examined duodenum was normal. 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 - 3 cm hiatal hernia. - [...] Await pathology results. - Refer to a circulation librarian if symptoms persist. The patient is experiencing [...] 9:28 AM Procedure Code(s): --- Professional --- 63353, Esophagogastroduodenoscopy, flexible, transoral; with biopsy, single or multiple Diagnosis Code(s): --- Professional --- K22.70, Rosenberg's esophagus withoutdysplasia K44.9, Diaphragmatic hernia withoutobstruction or gangrene K31.89, Other diseases of stomach andduodenum R13.10, Dysphagia, unspecified CPT copyright 2022 [employer]. All rights reserved. The codes documented in this report are preliminary and upon intensivist reviewmay be revised to meet current compliance requirements. Scope In: 10:04:11 AM Scope Out: 10:10:57 AM Pawan Duong MD PROCEDURE ORD * NM CARDIAC MPI STRESS TEST (03/19/2024 11:00 AM CDT) Anatomical Region Laterality Modality HEART Nuclear Medicine 03/19/2024 9:26 AM CDT Narrative 03/19/2024 2:57 PM CDT ? Toll -free: [phone] ?[employer] ?MYOCARDIAL PERFUSION IMAGING REPORT REST/STRESS SINGLE ISOTOPE GATED SPECT IMAGING. Patient Name: ?? LONNIE DINH ? Gender: ? M ? Height: ? 69 in Accession #: ?[id number] ?Weight: ? 198 lb Study Date: ? 03/19/2024 9:26:11 AM ? BSA: ?2.06 m? ? ? : ?1945 78 years ?BMI: ?29.24 kg/m? ? ? Ord. Prov.: ? BHARATH CUMMINS DETERT ?Monitoring Prov.: Kierra, ? Diana Performing Site [facility] ?Clinic Clinical History: ? Chest pain. Known [...] Jean 13:28 minutes 86% of 143 bpm ??68500 ?? 7.60 METS ? HR ? BP [...] Lars Hill MD - 03/19/2024 Toll -free: [phone] [employer] MYOCARDIAL PERFUSION IMAGING REPORT REST/STRESS SINGLE ISOTOPE GATED SPECT IMAGING. Patient Name: LONNIE DINH Gender: Bisi Height: 69 in Weight: 198lb Study Date: 03/19/2024 9:26:11 AM BSA: 2.06m? ? ? : 1945 78 years BMI: 29.24kg/m? ? ? Ord. Prov.: BHARATH GUERRA Monitoring Prov.:Diana Lozada Performing Site [facility] Clinical History: Chest pain. Known coronary artery disease. Cardiac Risk Factors: Hypercholesterolemia. Other Symptomatology: RIGO and glaucoma. Cardiac History: CTA. Beta malgorzata/calcium channel malgorzata/nitrate taken today: No. Caffeine/methylxanthine taken within 12 hrs: No. Chest pain/discomfort at baseline: No. IMPRESSION 1. Myocardial perfusion was normal. 2. The peak heart rate was 122 bpm (86% MPHR); peak blood pressure fzl521 mmHg/70 mmHg. 3. Left ventricular cavity size [...] of breath. Gated post-stress tomographic imaging was onjpllqnx46 minutes after stress. After image acquisition was completed, data wasreconstructed in short, horizontal long and vertical long axis views andtomographic slices were generated. Protocol Total Time MPHR Max RPP Max Workload Modified Jean 13:28 minutes 86% of 143 bpm 05646 7.60 METS HR BP Baseline 78 bpm [...] Villavicencio 03/19/2024 2:57:56 PM. Final (Updated) Bharath Guerra DO NM * TN CV STRS TST XERS&/OR RX CONT ECG [...] For Patients: As a result of the Century Cures Act, medical imagingexams and procedure [...] For Patients: ??As a result of the 21st Century Cures Act, medical imaging exams and [...] 12 LEAD (03/11/2024 11:04 AM CDT) Bharath Guerra DO EKG ORD * TN READING EKG - NO CHARGE, COMP ONLY (03/11/2024 11:03 AM CDT) Bharaht Guerra DO PB - PROVIDER READI NGS * HEMOGLOBIN A1C SCREENING (03/07/2024 9:32 AM CDT) HEMOGLOBIN A1C SCREENING 4.9 <=6.4 % 03/07/2024 9:40 PM CDT [facility] Blood BLOOD SPECIMEN / Unknown Venipuncture / Unknown 03/07/2024 9:32 AM CDT 03/07/2024 9:32 AM CDT [facility]ative [facility] 03/07/2024 9:40 PM CDT ? (<5.7%) ?Normal ? (5.7% to 6.4%) ? Indicates prediabetes ? (>=6.5%) ? Confirms diabetes Falsely low levels may be seen with: Recent Transfusion, Recent Significant Blood Loss, Hemolytic Diseases, or Falsely elevated levels may be seen with: Untreated Anemias, Splenectomy Bharath Guerra DO CHEMISTRY [facility] [address] [place] [address], * (ABNORMAL) LIPID PANEL W REFLEX MEASURED LDL (03/07/2024 9:32 AM CDT) CHOLESTEROL,TOTAL 239(H) 100 - 199 mg/dL 03/07/2024 5:59 PM CDT [facility] Comment: Cholesterol, Total Reference Ranges Desirable <200 mg/dL Borderline 200-239 mg/dL High >=240 mg/dL TRIGLYCERIDES 220(H) <150 mg/dL 03/07/2024 5:59 PM CDT [facility] HDL CHOLESTEROL 43 >40 mg/dL 5:59 PM CDT [facility] NON-HDL CHOLESTEROL 196(H) <145 mg/dl 03/07/2024 5:59 PM CDT [facility] CHOL/HDL RATIO 5.56(H) <4.50 03/07/2024 5:59 PM CDT [facility] LDL CHOLESTEROL 152(H) <=130 mg/dL 03/07/2024 5:59 PM CDT [facility] VLDL CHOLESTEROL 44(H) <=30 mg/dL 03/07/2024 5:59 PM CDT [facility] PROVIDER ORDERED STATUS RANDOM 03/07/2024 5:59 PM CDT [facility] Blood BLOOD SPECIMEN / Unknown Venipuncture / Unknown 03/07/2024 9:32 AM CDT 03/07/2024 9:32 AM CDT Bharath Cummins Madie DO CHEMISTRY [facility] [address] [place] [address], * (ABNORMAL) BASIC METABOLIC PANEL (03/07/2024 9:32 AM CDT) SODIUM 141 136 - 145 mmol/L 03/07/2024 5:59 PM CDT [facility] POTASSIUM 4.5 3.5 - 5.1 mmol/L 03/07/2024 5:59 PM CDT [facility] CHLORIDE 108(H) 98 - 107 mmol/L 03/07/2024 5:59 PM CDT [facility] CO2,TOTAL 24 22 - 29 mmol/L 03/07/2024 5:59 PM CDT [facility] ANION GAP 9 5 - 18 03/07/2024 5:59 PM CDT [facility] GLUCOSE 100(H) 70 - 99 mg/dL 03/07/2024 5:59 PM CDT [facility] CALCIUM 9.5 8.8 - 10.2 mg/dL 03/07/2024 5:59 PM CDT [facility] BUN 18 8 - 23 mg/dL 03/07/2024 5:59 PM CDT [facility] CREATININE 1.09 0.70 - 1.20 mg/dL 03/07/2024 5:59 PM T [facility] BUN/CREAT RATIO 17 10 - 20 5:59 PM CDT [facility] eGFR 70(L) >90 mL/min/1.7 3m2 03/07/2024 5:59 PM CDT [facility] Comment:As of 2022, eG FR is calculated by the CKD-EPI creatinine equation without race adjustment. ??eGFR can be influenced by muscle mass, exercise, and diet. ??The reported eGFR is an estimation only and is only applicable if the renal function is stable. Blood BLOOD SPECIMEN / Unknown Venipuncture / Unknown 03/07/2024 9:32 AM CDT 03/07/2024 9:32 AM CDT Bharath Guerra DO CHEMISTRY [facility] [address] [place] [address], [place] * LC HCV ANTIBODY RFX TO QUANT PCR (03/09/2023 7:54 AM CDT) Pathologist [facility] HCV Ab Non Reactive Non Reactive 03/13/2023 1:10 PM CDT [facility] Blood BLOOD SPECIMEN / Unknown Venipuncture / Unknown 03/09/2023 7:54 AM CDT 03/09/2023 7:56 AM CDT Narrative [facility] ([facility]) - 03/13/2023 1:10 PM CDT Performed at: ??[address] ??[id number] Kickboxing Instructor: Eliezer Alfaro MD, Phone: ??[phone] Bharath Guerra DO LABORATORY [facility] ([facility]) [address] [place], [place] [id number], * OCCULT BLOOD IFOBT STOOL (09/20/2021 11:46 AM POLICY WRITER TYPIST) Pathologist [facility] STOOL BLOOD ,IFOBT Negative Negative 09/30/2021 9:29 AM POLICY WRITER TYPIST [facility] Stool STOOL SPECIMEN / Unknown Non-Blood / Unknown 09/20/2021 11:46 AM POLICY WRITER TYPIST 09/28/2021 11:47 AM POLICY WRITER TYPIST Bharath Guerra DO LABORATORY [facility] [address] [place] [address], [place] [phone] from Last 3 Months or Most Recently [...] Comments Code Status Discussion: Discussed Care Teams Hvac Sales Representative Relationship Specialty Start Date End Date Bharath Guerra DO [address] [place] [address] PCP - General Family Practice 08/31/17
--- OUTSIDE RECORDS SUMMARY | 2024-05-27 12:49 | XMS_ITS | Encounter Summary ---
Author Organization [facility] Address [address] [place] [address] Care Team Providers Care Product Demonstrator Name Role Phone Elsewhere, Pcp Primary Care Provider Unavailabl e Reason for Visit * Appointment Request (Routine) - Closed Specialty Diagnoses / Procedures Referred By Carl lovell Referred To Contact Dermatology Diagnoses Nevus Changing Referral ID Status Reason Start Date Expiration Date Visits Re quested Visits Authorized [id number] Closed 02/21/2024 02/20/2025 1 1 Encounter Details Date Type Department Care Team ([facility] st Contact Info) Description 02/27/2024 2:40 PM CDT Office Visit Department of Dermatology in [place], [place] [address] [place] [address] Karena Maguire M.D., M.S. Keratosis Seborrheic Inflamed [...] surgery on 12/31/[address] Holman at [facility] 2. Negative for melanoma FAMILY HISTORY Negative [...] documented in this encounter Plan of Treatment Not on file documented as of this encounter Visit Diagnoses Diagnosis Keratosis Seborrheic Inflamed- Primary Keratosis Actinic documented in this encounter Care Teams Product Demonstrator Relationship Specialty Start Date End Date Elsewhere, Pcp PCP - General Family Medicine 02/05/19 documented as of this encounter
--- OUTSIDE RECORDS SUMMARY | 2024-05-27 12:49 | XMS_ITS | Encounter Summary ---
Author Organization [facility] Address [address] [place] [address] Care Team Providers Care Product Mgr Name Role Phone Elsewhere, Pcp [facility] Encounter Details Date Type Department Care Team ([facility] st Contact Info) Description 02/19/2024 Clinical Communication Department of Dermatology in [address] [phone] Estuardo Montanez M.D. [address] [place] [address] Social History Tobacco Use Types Packs/Day Years [...] as of this encounter Plan of Treatment Not on file documented as of this encounter Visit Diagnoses Not on filedocumented in this encounter Care Teams Product Mgr Relationship Specialty Start Date End Date Elsewhere, Pcp PCP - General Family Medicine 02/05/19 documented as of this encounter
--- OUTSIDE RECORDS SUMMARY | 2024-05-27 12:49 | XMS_ITS | Referral Summary ---
Author Organization [facility] Address [address] [place] [address] Care Team Providers Care Clinical Social Work Aide Name Role Phone Elsewhere, Pcp Primary Care Provider Unavailabl e Source Comments Patient records contain information from all sites at [facility]. For routine questions regarding patient records, call [phone] during business hours, M-F 8:00 AM - 5:00 PM Central Time. Record requests for emergency care only can be directed to [phone] at any time.[facility] Encounters Date Type Department Care Team Description 02/27/2024 2:40 PM CDT Office Visit Department of Dermatology in [place], [place] [address] [place] [address] Karena Maguire M.D., M.S. Keratosis Seborrheic Inflamed (Primary Dx); Keratosis Actinic Discharge Disposition: Home or Self Care from Last 3 Months Allergies Active Allergy [...] mouth every other day. 01/02/2019 Active vitamins A,C,I-phkw-xtbphg (ICAPS AREDS) 14,320 Units-226 mg-200 Units per [...] Comments Blood Pressure 160/88 12/31/2020 11:00 AM BOOM STICK MAN Pulse 73 12/31/2020 11:00 AM BOOM STICK MAN Temperature - - Respiratory Rate - - Oxygen Saturation - - Inhaled Oxygen Concentration - - Weight - - Height - - Body Mass Index - - Plan of Treatment Not on file Medical Devices Implanted Type Area Lpn Private Duty Device Identifier Shelf Expiration Date Model / Serial / Lot Hip Implant- [id number] Implanted:02/03 (Quantity not on file) Hip Implant Left: Hip Care Teams Clinical Social Work Aide Relationship Specialty Start Date End Date Elsewhere, Pcp PCP - General Family Medicine 02/05/19
--- OUTSIDE RECORDS SUMMARY | 2024-05-27 12:50 | XMS_ITS | Continuity of Care Document ---
Author Organization [facility], [facility] [facility] Address [address] [facility] [address] [place] [phone] Assessment No assessment recorded. Plan of Treatment Reminders Order Date Submit Date Provider Last Modified By Organization Details Last Modified Time Details Appointments None record ed. Lab None record ed. Referral None record ed. Procedures None record ed. Surgeries None record ed. Imaging None record ed. Medication Orders None record ed. Patient TargetsNo targets recorded. Patient Instructions Encounter Date Encounter Id Patient Instructions Last Modified By Organization Details Last Modified Time 04/17/2024 [id number] will set up for another CT urogram and call with report. [email or web address] Not available 04/17/2024 11:02:30 Reason for Referral None Reported. Results Created Date Observation Date Name Description Value Unit Range Abnormal Flag LastModifiedBy Organization Detail LastModifiedTime 05/07/2005/06/2024 CT, urogr am No observ ation record ed. JOSE Martinez Glendo [address], [place], [address], 05/13/2024 15:55:40 Result Notes None recorded. Problems Name Status Onset Date Resolution Date Notes Provider Name and Address Organization Details Recorded Time Lower urinary tract symptoms due to benign prostatic hypertrophy Active 01/24/20 23 Jerry Almanza MD [address] [place] [address],[address] [place] [address], [phone] , [facility] 01/23/2023 12:18:40 Hydronephrosis Active 04/17/20 24 Jerry Almanza MD [address] [place] [address],[address], [phone] , [facility] 04/17/2024 11:02:11 Problem Notes None recorded. Procedures Surgical History Date Name Laterality Status Provider Name and Address Organization Details Recorded Time 4 Bladder Scan completed Jerry Almanza MD [address] [place] [address],[address], [place], [phone], [facility] 02/12/2024 11:28:36 3 Bladder [facility] 07/10/2023 10:39:00 3 Bladder Scan completed Jerry Almanza MD [address] [place] [address],[address], [place], [address], [facility] 01/23/2023 12:05:08 2 Bladder Scan completed Jerry Almanza MD [address] [place] [address],[address] [place] [address], [phone], [facility] 04/11/2022 11:55:29 procedure on back completed Jerry Almanza MD [address] [place] [address],[address] [place] [address], [phone], [facility] 04/11/2022 11:53:44 total replacement of hip completed Jerry Almanza MD [address] [place] [address],[address], [place], [phone], [facility] 04/11/2022 11:54:04 Vasectomy completed Jerry Almanza MD [address] [place] [address],[address], [place], [address], [facility] 04/11/2022 11:54:11 Imaging Results None recorded. Procedure Notes None recorded. Medical Equipment None Reported. Allergies Allergen ID Allergen Name Allergen Category Reaction Reaction Severity Criticality Documentation Date Start Date Code Code System Note Provider Name and Address Organization Details Recorded Time 865023 Sporanox medicatio n Not available Not available Not available 04/11/2022 29775 6 RxNorm Jerry Almanza MD [address] [place] [address],[address] [place] [address], [phone], [facility] 2 11:51:49 279862 melon extract food Not available Not available Not available 04/11/2022 44492 10 RxNorm Jerry Almanza MD [address] [place] [address],[address], [place], [phone], [facility] 2 11:51:54 826873 Product containin g 3-hydroxy -3-methyl glutaryl- coenzyme A reductase inhibitor (product) medicatio n Not available Not available Not available 04/11/2022 35260 009 NOVA Almanza MD [address] [place] [address], [phone], [facility] 2 11:52:03 Medications Name Sig Start [...] THREE TIMES A DAY FOR 10 DAYS 04/17 completed Not Available Not Available Not Available timolol maleate 0.5 % eye drops INSTIL 1 DROP INTO RIGHT EYE 2 TIMES DAILY active Not Available Not Available No t Available cefdinir 300 mg capsule TAKE 1 CAPSULE (300 MG) BY MOUTH TWICE A DAY FOR 10 DAYS 04/17 completed Not Available Not Available Not Available finasteride 5 mg tablet TAKE 1 TABLET BY MOUTH EVERY DAY active Not Available Not Available No t Available gatifloxaci n 0.5 % eye drops PLEASE SEE ATTACHED FOR DETAILED DIRECTION S 04/11 completed Not Available Not Available Not Available Vitals Date Recorded Body height Body mass index (BMI) Body weight Provider Name and Address Organization Details Last Updated DateTime 04/17/2024 177.8 cm 27.3 kg/m2 90007.55 g Jerry Almanza MD [address] [facility],[address], [place], [phone] 04/17/2024 10:44:43 Social History Question Answer Notes LastModified by Organizat ion Details LastModified Time Tobacco Smoking Status Former Smoker Jerry Almanza MD [address] [facility],[address], [place], [address], [facility] 04/11/2022 11:53:29 What Is Your Level Of Alcohol Consumption? Moderate [email or web address] Information not available 04/11/2022 What Is Your Level Of Caffeine Consumption? Moderate [email or web address] Information not available 04/11/2022 When Did You Quit Smoking? 16+yearssincel astcigarette [email or web address] Information not available 04/11/2022 What Was The Date Of Your Most Recent Tobacco Screening? 04/11/2022 Information not available 04/11/2022 Sex: Unknown Functional Status None recorded. Mental Status None recorded. Family History Relationship Description Onset Age of this Age Resolved Age Notes Father Family history of ca rdiac disorder Medical History Condition Response Sexually Transmitted Infection N Diabetes N Other N Bleeding Disorder N High Blood Pressure N Kidney Stones N High Cholesterol Y GERD/Acid Reflux N Heart Disease N Cancer N Depression N Lung Disease N Past Encounters Encounter ID Performer Location Encounter Start Date Encounter Closed Date Diagnosis/Indication Diagnosis SNOMED-CT Code [id number] Jerry Almanza MD [facility] [address] [facility] [address] [place] [phone] 04/17/2024 10:27:47 04/25/2024 16:54:39 Hydronephrosis [id number] Health Concerns Section Related Observation LastModified by Organization Detai ls LastModified Time None Recorded Concern Status LastModified by Organization Details LastModified Time None Recorded Payers Encounter Date Sequence Insurance Name Policy Number Policy Colindres Covered Member ID Colindres Member ID Guarantor Name 04/17/2024 1 [place] COST [id number] Barrie Dinh [id number] Barrie Dinh Notes Date Note Type Note Provider Name and Address Organization Details Recorded Time 04/17/2024 text/html HPI Notes: Patient is here for Hydronephrosis. 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 Jerry Almanza MD [address] [facility],[address], [place], [address], [facility] 04/17/2024 11:07:08
--- OUTSIDE RECORDS SUMMARY | 2024-05-27 12:50 | XMS_ITS | Data Portability ---
Author Organization SIMON Triplett - Leonardo Last, [facility] Address [address] [place] [address] Assessment No assessment recorded. Plan of Treatment Reminders Order Date Submit Date Provider Last Modified By Organization Details Last Modified Time Details Appointments None recorded. Lab urinalysi s, dipstick, auto 023 023 [facility], [address] , [place], [address], 3 14:19:52 culture, urine 023 023 [facility], [address] [facility], [place], [address], 3 12:57:28 Referral None recorded. Procedures None recorded. Surgeries None recorded. Imaging None recorded. Medication Orders Bactrim DS 800 mg-160 mg tablet 023 023 [id number], [id number] [facility], [place], [address], 3 14:19:52 Patient TargetsNo targets recorded. Patient Instructions Encounter Date Encounter Id Patient Instructions Last Modified By Organization Details Last Modified Time 12/12/2022 [id number] Urinalysis indicates you likely have a bladder [...] education tracking Not Available [facility] [address], [place], [address], 12/15/2022 04:14:38 12/12/19 23 12/15/2022 CULTU RE, URINE , ROUTI NE culture, urine, routine SEE NOTE Not Available [facility] [address], [place], [address], 12/15/2022 04:14:38 12/12/19 23 12/12/2022 urina lysis , dipst ick, auto Color Talya [Refer ence Range Yellow Straw] Not Available [facility] [address] [place], [address], 12/12/2022 14:02:13 12/12/19 23 12/12/2022 urina lysis , dipst ick, auto Clarity Bloody [Refer ence Range Clear] Not Available [facility] [address] [place], [address], 12/12/2022 14:02:13 12/12/19 23 12/12/2022 urina lysis , dipst ick, auto Glucose Negati ve [Refer ence Range Negati ve] Not Available [facility] [address] [place], [address], 12/12/2022 14:02:13 12/12/19 23 12/12/2022 urina lysis , dipst ick, auto Bilirubin Negati ve [Refer ence Range Negati ve] Not Available [address], [place], [address], 12/12/2022 14:02:13 12/12/19 23 12/12/2022 urina lysis , dipst ick, auto Ketones Negati ve [Refer ence Range Negati ve] Not Available [address], [place], [address], 12/12/2022 14:02:13 12/12/19 23 12/12/2022 urina lysis , dipst ick, auto Specific [place] ? ? 1.030 [Refer ence Range 1.001- 1.035] Not Available [address], [place], [address], 12/12/2022 14:02:13 12/12/19 23 12/12/2022 urina lysis , dipst ick, auto Blood Large [Refer ence Range Negati ve-Tra ce] Not Available [address], [place], [address], 12/12/2022 14:02:13 12/12/19 23 12/12/2022 urina lysis , dipst ick, auto Protein ? ? 300 mg/dL [Refer ence Range Negati ve] Not Available [address], [place], [address], 12/12/2022 14:02:13 12/12/1912/12/2022 urina lysis , dipst ick, auto Urobilinogen (0.2-1 .0) E.U./d L [Refer ence Range (0.2-1 .0) E.U./d L] Not Available [address] [place], [address], 12/12/2022 14:02:13 12/12/19 23 12/12/2022 urina lysis , dipst ick, auto Nitrate Positi ve [Refer ence Range Negati ve] Not Available [facility] [address], [place], [address], 12/12/2022 14:02:13 12/12/19 23 12/12/2022 urina lysis , dipst ick, auto Leukocytes Trace [Refer ence Range Negati ve] Not Available [address], [place], [address], 12/12/2022 14:02:13 12/12/19 23 12/12/2022 urina lysis , dipst ick, auto pH 6.5 [Refer ence Range 5.0-9. 0] Not Available [address], [place], [address], 12/12/2022 14:02:13 Result Notes None recorded. Problems Name Status Onset Date Resolution Date Notes Provider Name and Address Organization Details Recorded Time Acute urinary tract infection Active 3 ARMANDO Taylor [address] [place], [address], [facility] 12/12/2022 14:12:58 Problem Notes None recorded. Medical Equipment None Reported. Allergies Allergen ID Allergen Name Allergen Category Reaction Reaction Severity Criticality Documentation Date Start Date Code Code System Note Provider Name and Address Organization Details Recorded Time [id number] Sporanox medicatio n Not available Not available Not available 12/12/2022 6 RxNorm [facility] Medications Name Sig Start Date Stop [...] Updated DateTime 3 177.8 cm 27.9 kg/m2 31513.0 8 g 71 /min 16 /min 96 % 96 % 98.3 [degF] 112 mm[Hg] 70 mm[Hg] Madyson Blackmonriley [facility] 14:01:13 Social History Question Answer Notes LastModified by Organizat ion Details LastModified Time Tobacco Smoking Status Former Smoker Madyson Blackmonriley goodwin [facility] 12/12/2022 14:01:59 Do You Have An Advance [...] Diarrhea? No Information not available 12/12/2022 Sex: Unknown Functional Status None recorded. Mental Status None recorded. Family History Relationship Description Onset Age of this Age Resolved Age Notes Father No current problems or disability Mother No current problems or disability Medical History No medical history recorded. Past Encounters Encounter ID Performer Location Encounter Start Date Encounter Closed Date Diagnosis/Indication Diagnosis SNOMED-CT Code [id number] ARMANDO Taylor [facility] [place] [address] [place] [address] 12/12/2022 13:07:31 12/12/2022 14:21:46 Acute urinary tract infection 870643395 Health Concerns Section Related Observation LastModified by Organization Detai ls LastModified Time None Recorded Concern Status LastModified by Organization Details LastModified Time None Recorded Advance Directives Directive N: Payers Encounter Date Sequence Insurance Name Policy Number Policy Colindres Covered Member ID Colindres Member ID Guarantor Name 12/12/2022 2 [facility] [employer] (PPO) [id number] Barrie Dinh [id number] Barrie Dinh Notes Date Note Type Note Provider Name and Address Organization Details Recorded Time 12/12/2022 text/html HPI Notes: 77 yo M c/o urinary burning, gross hematuria since this morning. Denies fever, chills, flank pain, n/v. Hx of prostate issues. No past kidney or UTIs. ARMANDO Taylor [address] [place], [address], [facility] 12/12/2022 14:21:55
== END 2024-05-27 12:47 | disposition home or self-care (01) ==
LOC: INJ CL 12:46
PROVIDERS: PCP Family Medicine; Visit Provider Family Medicine
DX: M54.16 Radiculopathy, lumbar region (principal); M51.36 Other intervertebral disc degeneration, lumbar region
CPT/HCPCS: 64483; 64484; J1100; Q9966

== ENCOUNTER 2024-09-26 08:05 | Outpatient (CLI) | payer MEDICARE, BC, SELFPAY ==
--- OUTSIDE RECORDS SUMMARY | 2024-09-26 08:07 | XMS_ITS | Continuity of Care Document ---
Author Organization [facility] Address [address] [facility] [address] [place] [address] Phone Care Team Providers Care Circuit Walker Name Role Phone Moises Lopez MD Unavailable [...] [address], [place], [address], [place] tel:[phone] [facility] , Follow Up of Musculoskele jorge alberto pain (chief complaint) Generalized osteoarthrit isLeg weaknessCarp al tunnel syndromeDupu ytren's contracture 5 John De Leon. [facility] [address], [place], [address], [place]. tel:[phone] Referring Provider: Moises Peter, [facility] [address], [place], [address]. [phone] Office/Outpa tient Visit, New [facility] , [address], [place], [address], [place] tel:[phone] [facility] , Musculoskele jorge alberto pain (chief complaint) TinglingFati gueMuscle painGERDGene ralized osteoarthrit is John De Leon. [facility] [address], [place], [address], [place]. tel:[phone] Referring Provider: Moises Peter, [facility] [address], [place], [address]. tel:[phone] [facility] , [address], [place], [address], [place] tel:[phone] [facility] , No Information John De Leon. [facility] [address], [place], [address], [place]. tel:[phone] Family History Family Member Type Diagnosis Age At Onset Father Problem (finding) degenerative disorder o f macula Mother Problem (finding) degenerative disorder o f macula Payers Payer name Insurance type Covered republican ID Chuck benavidez(s) [employer] Medicare Advantage/Plat inum Blue BL [id number] Social History Type Description Quantity Date Captured [...]
--- OUTSIDE RECORDS SUMMARY | 2024-09-26 08:07 | XMS_ITS | Continuity of Care Document ---
Author Organization [facility] Address [address] [place] [address] Phone Care Team Providers Care Internet Marketing Specialist Name Role Phone Alex BENSON, PhD, Arnel Unavailable Unavai lable Allergies, Adverse Reactions, Alerts Substance Reaction Status [...] Available - Active Procedures Procedure Date Office/Outpatient Visit,New, Mod 2023 Office/Outpatient Visit,[facility] 2018 X-Ray Exam Lwr Spine, Min 4 Views Postop Followup Visit Remove Lumbar Spine Lamina, 1 Seg Remove Added Spine Lamina, 1 Seg 2016 Pa Assist Remove Lumbar Spine Lamina, 1 Seg Pa Assist Remove Added Spine Lamina, 1 S eg Office/Outpatient Visit,New, Mod 2016 X-Ray Exam Lwr Spine, Min 4 Views Office/outpatient visit,[facility], mod 2009 X-ray exam lwr spine, min 4 views Advance Directives Directive Yes / No Effective Date File Name No Information Encounters Encounter Description Practice Location Reason(s) For Visit Diagnoses Date Provider Providers Copied on Encounter Office/Outpa tient Visit,New, Mod [facility], [address], [place], [place], [id number], [place] tel:[phone] [facility] Other spondylosis, lumbar region 4 Alex Seals. [facility] [place], [address] [place] [address], [address], . tel:[phone] Referring Provider: Gerardo Mathews, [facility], [place], [address]. tel:[phone] Office/Outpa tient Visit,Est, Mod [facility], [address], [place], [place], [id number], [place] tel:[phone] [facility] Radiculopath y, lumbosacral region 9 Angela Jocelyn. [facility], [address] [place] [address], [facility], [place]. tel:[phone] Referring Provider: Gerardo Mathews, [employer] [address] [facility], [place], [address]. tel:[phone] [facility], [address] [place] [address], [id number], [place] tel:[phone] [facility] Encounter for other specified surgical aftercare 0 7 Transfeldt Ensor. [facility], [address] [place] [address], [id number], [place]. tel:[phone] Referring Provider: Gerardo Mathews, [employer] [address] [facility], [place], [address]. tel:[phone] [facility], [address] [place] [address], [id number], [place] tel:[phone] [facility] No Information 7 Transfeldt Ensor. [facility], [address] [place] [address], [id number], [place]. tel:[phone] Referring Provider: Gerardo Mathews, [employer] [address] [facility], [place], [address]. tel:[phone] Office/Outpa tient Visit,[facility]ier Bow[facility], [address], [place], [place], [id number], tel:[phone] [facility] Spinal stenosis, lumbar region 6-201 7 Transfeldt Ensor. [facility] [place], [address] [place] [address], [id number], [place]. tel:[phone] Referring Provider: Gerardo Mathews, [employer] [facility] [address] [facility], [place], [address]. tel:[phone] [facility] [place], [address] [place] [address], [address], tel:[phone] [facility] No Information 0-201 0 Transfeldt Ensor. [facility], [address] [place] [address], [id number], [place]. tel:[phone] Family History Family Member Type Diagnosis Age At Onset No Information Payers Payer name Insurance type Covered constitution party ID Chuck benavidez(s) [facility] [id number] Medicare [facility] [id number] Social History Type Description Quantity Date Captured Comments Alcohol Use Details Unknown Caffeine Use Details Unknown Tobacco Use Status Ex-cigarette smoker 024 Smoking Status Former smoker Smoking Tobacco Use Details Cigarette: No Details Available Cigarette: No Details Available Non-Smoking Tobacco Use Details : No Details Available : No Details Available Sex Male Vital Signs Date / Time: Height Weight BMI Pulse Rate Blood Pressure Temperature Respiratory Rate Body Surface Area Head Circumference Head Circ. Percentile Wt./Oscar. Percentile BMI percentile Pulse Ox Inhaled Ox 1:53 PM 68.50 in 87.906 kg (193.80 lbs) 29.0 4 kg/m eter (2) Chief Complaint And Reason For Visit No Information Reason For Referral Reason For Referral No Information Plan Of Treatment Date Type Action Status Future Order: Radiology Order AP -Rcg-Bwsy-Mao Lum (APLatFlExL), Ordered on: Ordered Future Order: Radiology Order AP /Lat/Flex/Ext Lumb (APLatFlExL), Ordered on: Ordered History Of Present Illness Encounter Date Complaint History Of Prese nt Illness No Information Functional Status Date Functional Assessmen t No Information Instructions Date Instruction Additional Infor minor Weight Management Education Rela smith to Overweight Weight management: I nstructed to return to General Practitioner timeframe: 1 Month. Related to Overweight Weight Management Education Rela smith to Overweight Weight management: I nstructed to return to General Practitioner timeframe: 1 Month. Related to Overweight Assessments Type Assessment Date assessment Other spondylosis, lumbar region Patient Care Teams Name Effective Dates (start - stop) Status Members No Information
--- OUTSIDE RECORDS SUMMARY | 2024-09-26 08:08 | XMS_ITS | Referral Summary ---
Author Organization [facility] Address [address] [place] [address] Care Team Providers Care Technical Manager Chemical Plant Name Role Phone Elsewhere, Pcp Primary Care Provider Unavailabl e Source Comments Patient records contain information from all sites at [facility]. For routine questions regarding patient records, call [phone] during business hours, M-F 8:00 AM - 5:00 PM Central Time. Record requests for emergency care only can be directed to [phone] at any time.[facility] Encounters Date Type Department Care Team Description 07/24/2024 1:00 PM CDT Office Visit Department of Dermatology in [place], [place] [address] [place] [address] [place] [address] Sis Mcgovern M.D. Hamilton Boyle M.D. Keratosis Actinic (Primary Dx); Dermatoheliosis; Personal History Of Other Malignant Neoplasm Of Skin 07/23/2024 7:45 AM CDT Clinical Communication Virtual Review in [place], [place] [address] [place] [address] Previsit Preparation from Last 3 Months Allergies Active Allergy Reactions Criticality Noted Date Comments Ezetimibe Myalgia Medium 02/22/2010 Itraconazole Rash Medium sporonox Melon Shortness of breath (Reselect Reaction) Medium 03/29/2017 Simvastatin Myalgia Medium 02/22/2010 Elevated blood glucose as well.Has tried all statins Spice Flavor Anaphylaxis 04/01/2009 pinto Medications aspirin [address] tablet Take 81 mg by mouth every other day. 9 Active vitamins A,C,E-zinc-jonathan er (ICAPS AREDS) 14,320 Units-226 mg-200 Units per capsule Take 1 tablet by mouth. Active timolol (TIMOPTIC) 0.5 % ophthalmic solution Administer 1 drop into the right eye 2 (two) times a day. 5 9 Active tamsulosin (FLOMAX) 0.4 mg 24 hr capsule TAKE ONE CAPSULE BY MOUTH DAILY AFTER A MEAL 11 9 Active finasteride (PROSCAR) 5 mg tablet Take 5 mg by mouth daily. 2 Active tiZANidine (ZANAFLEX) 2 mg tablet Take 2 mg by mouth as needed. 2 Active omeprazole (PriLOSEC) [address] capsule TAKE 1 CAPSULE (40 MG) BY MOUTH ONCE DAILY BEFORE A MEAL. 3 Active fluorouraciL (Efudex) 5 % creamIndication s:Keratosis Actinic Use 7-10 days as needed to any red, scaly spots on the face and scalp. 40 g 3 4 Active Social History Tobacco Use Types Packs/Day Years Used Date Smoking Tobacco: Former Smokeless Tobacco: Never Tobacco Cessation:Counseling Given: Not Answered Nutrition Answer Date Recorded Nutrition: EVOO Fat Source 13 06/01 Nutrition: Servings of Fruits/Vegetables per Day Not on file 06/01/2020 Dental Answer Date Recorded Dental: Regular Dentist Unknown 12/24/19 21 Sex and Gender Information Value Date Recorded Sex Assigned at Not on file Legal Sex Male 11:09 AM CDT Gender Identity Not on file Sexual Orientation Not on file Last Filed Vital Signs Vital Sign Reading Time Taken Comments Blood Pressure 160/88 12/31/2020 11:00 AM PRODUCT MARKETING SPECIALIST Pulse 73 12/31/2020 11:00 AM PRODUCT MARKETING SPECIALIST Temperature - - Respiratory Rate - - Oxygen Saturation - - Inhaled Oxygen Concentration - - Weight - - Height - - Body Mass Index - - Plan of Treatment Not on file Medical Devices Implanted Type Area Guest Services Representative Device Identifier Shelf Expiration Date Model / Serial / Lot Hip Implant- [id number] Implanted:02/03 (Quantity not on file) Hip Implant Left: Hip Insurance [facility] MEDICARE Care Teams Technical Manager Chemical Plant Relationship Specialty Start Date End Date Elsewhere, Pcp PCP - General Family Medicine 02/05/19
--- OUTSIDE RECORDS SUMMARY | 2024-09-26 08:08 | XMS_ITS | Clinical Summary ---
Author Organization [facility] Address [address] [place] [address] Care Team Providers Care Stamp Press Operator Name Role Phone Elsewhere, Pcp Primary Care Provider Unavailabl e Source Comments Patient records contain information from all sites at [facility]. For routine questions regarding patient records, call [phone] during business hours, M-F 8:00 AM - 5:00 PM Central Time. Record requests for emergency care only can be directed to [phone] at any time.[facility] Allergies Active Allergy Reactions Criticality Noted Date [...] and scalp. 40 g 3 4 Active Encounters Date Type Department Care Team Description 07/24/2024 1:00 PM CDT Office Visit Department of Dermatology in [place], [place] [address] [facility] [place] [address] Sis Mcgovern M.D. Newcomer, Jackson B, M.D. Keratosis Actinic (Primary Dx); Dermatoheliosis; Personal History Of Other Malignant Neoplasm Of Skin 07/23/2024 7:45 AM CDT Clinical Communication Virtual Review in [place], [place] [address] [place] [address] Previsit Preparation from Last 3 Months Social History Tobacco [...] Comments Blood Pressure 160/88 12/31/2020 11:00 AM SOCIAL MEDIA CONTENT MANAGER Pulse 73 12/31/2020 11:00 AM SOCIAL MEDIA CONTENT MANAGER Temperature - - Respiratory Rate - - [...] Fall Risk Screen (Annual) 11/05/2023 COVID-19 Vaccine ( season) 2024 06/29/2023, 07/28/2022, 02/14/2022, Additional history exists Influenza Vaccine (#1) 2024 , 08/17/2021, 08/19/2020, Additional history exists Pneumococcal vaccine (65+ years) Completed 10/21/2015, 04/02/2012 RSV vaccine - (32-36 weeks) or 60+ years Completed 10/02/2023, 07/06/2023 IPV Vaccines Aged Out No longer eligi ble based on patient's age to complete this topic Medical Devices Implanted Type Area Insurance Marketing Specialist Device Identifier Shelf Expiration Date Model / Serial / Lot Hip Implant- [id number] Implanted:02/03 (Quantity not on file) Hip Implant Left: Hip Insurance [facility] MEDICARE Care Teams Stamp Press Operator Relationship Specialty Start Date End Date Elsewhere, Pcp PCP - General Family Medicine 02/05/19
--- OUTSIDE RECORDS SUMMARY | 2024-09-26 08:08 | XMS_ITS | Data Portability ---
Author Organization SIMON Triplett - Leonardo Last, [facility] Address [address] [place] [address] Assessment No assessment recorded. Plan of Treatment Reminders Order Date Submit Date Provider Last Modified By Organization Details Last Modified Time Details Appointments None recorded. Lab urinalysi s, dipstick, auto 023 023 [facility], [address] , [place], [address], 3 14:19:52 culture, urine 023 023 [facility], [address], [place], [address], 3 12:57:28 Referral None recorded. Procedures None recorded. Surgeries None recorded. Imaging None recorded. Medication Orders Bactrim DS 800 mg-160 mg tablet 023 023 [id number], [id number] [facility], [place], [address], 3 14:19:52 Patient TargetsNo targets recorded. Patient Instructions Encounter Date Encounter Id Patient Instructions Last Modified By Organization Details Last Modified Time 12/12/2022 [id number] Urinalysis indicates you likely have a bladder [...] to go to the ER for evaluation. [email or web address] Not available 12/12/2022 14:19:58 Reason for Referral None Reported. Results Created Date Observation Date Name Description Value Unit Range Abnormal Flag Note LastModifiedBy Organization Detail LastModifiedTime 12/12/19 23 12/15/2022 CLIEN T EDUCA TION TRACK ING client education tracking The Requi sitio n we recei shine did not inclu de a [facility] nt numbe r. To preve nt delay s in testi ng and proce ssing of your order s pleas e provi de the follo wing infor matio n with every order submi tted: [facility] nt numbe r and accou nt name Clien t addre ss Clien t phone and fax numbe r NPI numbe r of order ing physi radha along with the physi radha name. Not Available [facility] [address], [place], [address], 12/15/2022 04:14:38 12/12/19 23 12/15/2022 CULTU RE, URINE , ROUTI NE culture, urine, routine SEE NOTE CULTU RE, URINE , ROUTI NE Micro Numbe r: [id number] Test Statu s: Final Speci men Sourc e: Urine Speci men Quali ty: Adequ ate Resul t: Mixed genit al delma isola smith. These super ficia l bacte aung are not indic ative of a urina ry tract infec tion. No furth er organ ism ident ifica tion is warra nted on this speci men. If clini milo indic ated, recol lect clean -catc h, mid-s tream urine and trans fidencio immed iatel y to Urine Cultu re Trans port Tube. Not Available [facility] [address], [place], [address], 12/15/2022 04:14:38 12/12/19 23 12/12/2022 urina lysis , dipst ick, auto Color Talya [Refer ence Range Yellow Straw] Not Available [facility] [address], [place], [address], 12/12/2022 14:02:13 12/12/19 23 12/12/2022 urina lysis , dipst ick, auto Clarity Bloody [Refer ence Range Clear] Not Available [facility] [address], [place], [address], 12/12/2022 14:02:13 12/12/19 23 12/12/2022 urina lysis , dipst ick, auto Glucose Negati ve [Refer ence Range Negati ve] Not Available [facility] [address], [place], [address], 12/12/2022 14:02:13 12/12/19 23 12/12/2022 urina lysis , dipst ick, auto Bilirubin Negati ve [Refer ence Range Negati ve] Not Available [facility] [address], [place], [address], 12/12/2022 14:02:13 12/12/19 23 12/12/2022 urina lysis , dipst ick, auto Ketones Negati ve [Refer ence Range Negati ve] Not Available [facility] [address], [place], [address], 12/12/2022 14:02:13 12/12/19 23 12/12/2022 urina lysis , dipst ick, auto Specific [place] 1.030 [Refer ence Range 1.001- 1.035] Not Available [facility] [address], [place], [address], 12/12/2022 14:02:13 12/12/19 23 12/12/2022 urina lysis , dipst ick, auto Blood Large [Refer ence Range Negati ve-Tra ce] Not Available [facility] [address], [place], [address], 12/12/2022 14:02:13 12/12/19 23 12/12/2022 urina lysis , dipst ick, auto Protein 3 00 mg/dL [Refer ence Range Negati ve] Not Available [facility] [address], [place], [address], 12/12/2022 14:02:13 12/12/19 23 12/12/2022 urina lysis , dipst ick, auto Urobilinogen (0.2-1 .0) E.U./d L [Refer ence Range (0.2-1 .0) E.U./d L] Not Available [facility] [address], [place], [address], 12/12/2022 14:02:13 12/12/19 23 12/12/2022 urina lysis , dipst ick, auto Nitrate Positi ve [Refer ence Range Negati ve] Not Available [facility] [address], [place], [address], 12/12/2022 14:02:13 12/12/19 23 12/12/2022 urina lysis , dipst ick, auto Leukocytes Trace [Refer ence Range Negati ve] Not Available [facility] [address], [place], [address], 12/12/2022 14:02:13 12/12/19 23 12/12/2022 urina lysis , dipst ick, auto pH 6.5 [Refer ence Range 5.0-9. 0] Not Available [facility] [address] , [place], [address], 12/12/2022 14:02:13 Result Notes None recorded. Problems Name Problem SNOMED Code Status Onset Date Resolution Date Notes Provider Name and Address Organization Details Recorded Time Acute urinary tract infection 242676633 Active 023 ARMANDO Taylor [address] [facility], [place], [address], [facility] 3 14:12:58 Problem Notes None recorded. Medical Equipment None Reported. Allergies Allergen ID Allergen Name Allergen Category Reaction Reaction Severity Criticality Documentation Date Start Date Code Code System Note Provider Name and Address Organization Details Recorded Time 248578 Sporanox medicatio n Not available Not available Not available 12/12/202283879 6 RxNorm Madyson goodwin [facility] 14:01:41 Medications Name Sig Start Date [...] Updated DateTime 3 177.8 cm 27.9 kg/m2 46892.0 8 g 71 /min 16 /min 96 % 96 % 98.3 [degF] 112 mm[Hg] 70 mm[Hg] Madyson Mcgregor [facility] 3 14:01:13 Social History Question Answer Notes LastModified by Organizat ion Details LastModified Time Tobacco Smoking Status Former Smoker Madyson goodwin [facility] 12/12/2022 14:01:59 Do You Have An Advance Directive? No ivelisse Information not available 12/12/2022 Patients Living Environment [...] Age of this Age Resolved Age Notes LastModified by Organization Details LastModified Time Father No current problems or disability [email or web address] Not available 05/2023 14:01:48 Mother No current problems or disability [email or web address] Not available 05/2023 14:01:48 Medical History No medical history recorded. Past Encounters Encounter ID Performer Location Encounter Start Date Encounter Closed Date Diagnosis/Indication Diagnosis SNOMED-CT Code Diagnosis ICD10 Code [id number] ARMANDO Taylor [facility] [address] [place] [address] 12/12/2022 13:07:31 12/12/2022 14:21:46 Acute urinary tract infection 078817928 N39.0 Health Concerns Section Related Observation LastModified by Organization Detai ls LastModified Time None Recorded Concern Status LastModified by Organization Details LastModified Time None Recorded Advance Directives Directive N: Payers Encounter Date Sequence Insurance Name Policy Number Policy Colindres Covered Member ID Colindres Member ID Guarantor Name 12/12/2022 2 [place] [id number] Barrie Dinh [id number] Barrie Dinh Notes Date Note Type Note Provider Name and Address Organization Details Recorded Time 12/12/2022 text/html 77 yo M c/o urinary burning, gross hematuria since this morning. Denies fever, chills, flank pain, n/v. Hx of prostate issues. No past kidney or UTIs. ARMANDO Taylor [address] [place], [address], [place] [facility] 12/12/2022 14:21:55
--- OUTSIDE RECORDS SUMMARY | 2024-09-26 08:08 | XMS_ITS | Data Portability ---
Author Organization [place] [facility] Address [address] [place] [address] Assessment No assessment recorded. Plan of Treatment Reminders Order Date Submit Date Provider Last Modified By Organization Details Last Modified Time Details Appointments None recorded. Lab urinalysis , dipstick 2022 023 [facility], [facility], [address] [facility], [place], [address], 3 10:40:52 urinalysis , dipstick 2023 024 JOSE [facility], [facility], [address] [facility], [place], [address], 4 09:00:26 urinalysis , dipstick 2023 024 [email or web address] [facility], [address] [facility], [address] [facility], [place], [address], 4 10:55:15 Referral None recorded. Procedures bladder scan (PROC) 2022 023 [facility], [address] [facility], [address], [place], [address], 3 10:40:52 bladder scan (PROC) 2023 024 [email or web address] [facility], [address] [facility], [address], [place], [address], 11:43:28 bladder scan (PROC) 2023 [email or web address] [facility], [address] [facility] [facility], [address], [place], [address], 10:55:15 Surgeries None recorded. Imaging None recorded. Medication Orders cephalexin 500 mg capsule 2023 [email or web address] [id number], [address] [place] [address], [address], 10:44:51 ciprofloxa priti 500 mg tablet 2023 024 JOSE [facility], [address] [place] [address] 3 [place], [address], 11:14:45 finasterid e 5 mg tablet 2023 024 JOSE [facility], [address] [place] [address], [address], 11:16:57 Patient TargetsNo targets recorded. Patient Instructions Encounter Date Encounter Id Patient Instructions Last Modified By Organization Details Last Modified Time 02/27/2023 [id number] will set up for cystoscopy left retrograde and possible left ureteroscopy with laser/stent placement ALEKS discussed 8 minute phone visit. [email or web address] Not available 02/27/2023 12:09:27 07/10/2023 [id number] doing well and will plan rtc in the spring for PSA and med refills. [email or web address] Not available 07/10/2023 10:52:06 02/12/2024 [id number] continue current prostate meds and start keflex 10 days, plan rtc in July. [email or web address] Not available 02/12/2024 11:46:11 04/17/2024 [id number] will set up for another CT urogram and call with report. Not available 04/17/2024 11:02:30 09/23/2024 [id number] will send rx for cipro bid if gets flareup while in [place]. plan rtc 6 months. [email or web address] Not available 09/23/2024 11:15:34 Reason for Referral None Reported. Results Created Date Observation Date Name Description Value Unit Range Abnormal Flag Note LastModifiedBy Organization Detail LastModifiedTime 07/10/2007/10/2023 urina lysis , dipst ick pH-Status 5.5 Not Available [address], [place], [address], 07/10/2023 10:31:06 07/10/20 23 07/10/2023 bladd er scan (PROC ) Volume (in mL) 64ml Not Available [address], [place], [address], 07/10/2023 10:31:08 02/12/20 24 02/12/2024 bladd er scan (PROC ) Volume (in mL) 85ml Not Available [address], [place], [address], 02/12/2024 11:28:40 02/13/20 24 02/13/2024 urina lysis , dipst ick Color-Status Yellow Not Available [address], [place], [address], 02/12/2024 11:43:24 02/13/20 24 02/13/2024 urina lysis , dipst ick Clarity-Stat us Clear Not Available [address], [place], [address], 02/12/2024 11:43:24 02/13/20 24 02/13/2024 urina lysis , dipst ick Specimen Type Voided Not Available [address], [place], [address], 02/12/2024 11:43:24 02/13/20 24 02/13/2024 urina lysis , dipst ick Leuko-Status Negati ve Not Available [address], [place], [address], 02/12/2024 11:43:24 02/13/20 24 02/13/2024 urina lysis , dipst ick Blood-Status Negati ve Not Available [address], [place], [address], 02/12/2024 11:43:24 02/13/20 24 02/13/2024 urina lysis , dipst ick Nitrates-Sta tus negati ve Not Available [address], [place], [address], 02/12/2024 11:43:24 02/13/20 24 02/13/2024 urina lysis , dipst ick pH-Status 6.0 Not Available [address], [place], [address], 02/12/2024 11:43:24 02/13/20 24 02/13/2024 urina lysis , dipst ick Sp [place]-Stat us 1.025 Not Available [address], [place], [address], 02/12/2024 11:43:24 02/13/20 24 02/13/2024 urina lysis , dipst ick Ketones-Stat us Not Available [address], [place], [address], 02/12/2024 11:43:24 09/23/20 24 09/23/2024 urina lysis , dipst ick Color-Status Yellow Not Available [address], [place], [address], 09/17/2024 10:22:36 09/23/20 24 09/23/2024 urina lysis , dipst ick Clarity-Stat us Clear Not Available [address], [place], [address], 09/17/2024 10:22:36 09/23/20 24 09/23/2024 urina lysis , dipst ick Sp [place]-Stat us 1.025 Not Available [address], [place], [address], 09/17/2024 10:22:36 09/23/20 24 09/23/2024 urina lysis , dipst ick pH-Status 5.5 Not Available [address], [place], [address], 09/17/2024 10:22:36 09/23/20 24 09/23/2024 urina lysis , dipst ick Nitrates-Sta tus negati ve Not Available [address], [place], [address], 09/17/2024 10:22:36 09/23/20 24 09/23/2024 urina lysis , dipst ick Blood-Status Negati ve Not Available [place] [address], [place], [address], 09/17/2024 10:22:36 09/23/20 24 09/23/2024 urina lysis , dipst ick Leuko-Status Negati ve Not Available [facility] [address], [place], [address], 09/17/2024 10:22:36 09/23/20 24 09/23/2024 urina lysis , dipst ick Specimen Type Voided Not Available [place] [address] [facility] [address], [place], [address], 09/17/2024 10:22:36 09/23/20 24 09/23/2024 bladd er scan (PROC ) Volume (in mL) 30 Not Available [place] [address] [facility] [address], [place], [address], 09/17/2024 10:22:41 02/09/20 23 02/07/2023 CT, urogr am No observ ation record ed. [facility] [address] [facility] [place], [address], 02/28/2023 16:42:28 04/19/20 23 04/19/2023 XR, kidne y + urete r + bladd er No observ ation record ed. [email or web address] [facility] [address] [facility], [address], 04/20/2023 09:17:27 02/14/20 24 02/12/2024 bladd er scan (PROC ) No observ ation record ed. [facility] Not Available 2023 15:12:07 05/07/20 24 05/06/2024 CT, urogr am No observ ation record ed. JOSE Martinez [address], [place], [address], 05/13/2024 15:55:40 Result Notes None recorded. Problems Name Problem SNOMED Code Status Onset Date Resolution Date Notes Provider Name and Address Organization Details Recorded Time Lower urinary tract symptoms due to benign prostatic hypertrophy 8244116637582 1 Active 2022 Jerry Almanza MD [address] [place] [address],[address], [place], [address], [facility] 3 12:18:40 Hydronephro sis 60391789 Active 2023 Jerry Almanza MD [address] [place] [address],[address], [place], [address], [facility] 4 11:02:11 Problem Notes None recorded. Procedures Surgical History Date Name Laterality Status Provider Name and Address Organization Details Recorded Time 4 Bladder Scan completed Alexandra Jack [facility] 09/23/2024 10:52:18 4 Bladder Scan completed Jerry Almanza MD [address] [place] [address],[address], [place], [address], [facility] 02/12/2024 11:28:36 3 Bladder Scan completed Gregg Godinez [facility] 07/10/2023 10:39:00 3 Bladder Scan completed Jerry Almanza MD [address] [place] [address],[address] [facility], [place], [address], [facility] 01/23/2023 12:05:08 2 Bladder Scan completed Jerry Almanza MD [address] [place] [address],[address], [place], [address], [facility] 04/11/2022 11:55:29 procedure on back completed Jerry Almanza MD [address] [place] [address],[address], [place], [address], [facility] 04/11/2022 11:53:44 total replacement of hip completed Jerry Almanza MD [address] [place] [address],[address], [place], [address], [facility] 04/11/2022 11:54:04 Vasectomy completed Jerry Almanza MD [address] [facility],[address], [place], [address], [facility] 04/11/2022 11:54:11 Imaging Results Imaging Date Name Status LastModified by Organiz ation Details LastModified Time 02/07/2023 CT, urogram completed [facility] [address] [facility], [place], [address], 02/28/2023 16:42:28 04/19/2023 XR, kidney + ureter + bladder completed [email or web address] [facility] [address] [place], [address], 04/20/2023 09:17:27 02/12/2024 bladder scan (PROC) completed [facility] Information not available 02/14/2024 15:12:07 05/06/2024 CT, urogram completed OJSE Martinez [facility]eld [address] [facility], [place], [address], 05/13/2024 15:55:40 Procedure Notes None recorded. Medical Equipment None Reported. Allergies Allergen ID Allergen Name Allergen Category Reaction Reaction Severity Criticality Documentation Date Start Date Code Code System Note Provider Name and Address Organization Details Recorded Time 872073 Sporanox medicatio n Not available Not available Not available 04/11/2022 04568 6 RxNorm Jerry Almanza MD [address] [facility],[address] [place] [address], [address], [facility] 2 11:51:49 921016 melon extract food Not available Not available Not available 04/11/2022 37834 10 RxNorm Jerry Almanza MD [address] [facility],[address] [place] [address], [address], [facility] 2 11:51:54 903874 Product containin g 3-hydroxy -3-methyl glutaryl- coenzyme A reductase inhibitor (product) medicatio n Not available Not available Not available 04/11/2022 53835 009 SNOMED Jerry Almanza MD [address] [facility],[address], [place], [address], [facility] [place] [facility] 2 11:52:03 Medications Name Sig Start [...] Not Available Not Available No t Available fluorouraci l 5 % topical cream USE 7-10 DAYS NEEDED TO ANY RED, SCALY SPOTS ON THE FACE AND SCALP. active Not Available Not Available No t Available ciprofloxac in 500 mg tablet Take 1 tablet twice a day by oral route for 20 days. 2023 active Not Available Not Available Not Avai lable sulfamethox azole 800 mg-trimetho prim 160 mg tablet TAKE 1 TABLET BY MOUTH EVERY 12 HOURS FOR 7 DAYS 01/23 completed Not Available Not Available Not Available omeprazole 40 mg capsule,del ayed release TAKE 1 CAPSULE BY MOUTH EVERY DAY BEFORE A MEAL active Not Available Not Available No t Available tramadol 50 mg tablet TAKE 1 TABLET (50 MG) BY MOUTH 3 TIMES DAILY IF NEEDED FOR PAIN. active Not Available Not Available No t Available ketorolac 0.5 % eye drops PLEASE SEE ATTACHED FOR DETAILED DIRECTION S 04/11 completed Not Available Not Available Not Available prednisolon e acetate 1 % eye drops,suspe nsion INSTILL 1 DROP INTO LEFT EYE TWICE A DAY active Not Available Not Available No t Available tamsulosin 0.4 mg capsule TAKE 2 [...] completed Not Available Not Available Not Available fluorometho lone 0.1 % eye drops,suspe nsion INSTILL 1 DROP INTO LEFT EYE TWICE A DAY NEEDED 2-3X A DAY NEEDED FOR IRRITATIO N/FB SENSATION active Not Available Not Available No t Available timolol maleate 0.5 % eye drops INSTILL 1 DROP INTO RIGHT EYE TWICE A DAY active Not Available Not Available No t Available cefdinir 300 mg capsule TAKE 1 CAPSULE (300 MG) BY MOUTH TWICE A DAY FOR 10 DAYS 04/17 completed Not Available Not Available Not Available finasteride 5 mg tablet TAKE 1 TABLET BY MOUTH EVERY DAY 2023 active Not Available Not Available Not Avai lable Fish Oil active Not Available Not Avai lable Not Available gatifloxaci n 0.5 % eye drops PLEASE SEE ATTACHED FOR DETAILED DIRECTION S 04/11 completed Not Available Not Available Not Available Vitals Date Recorded Body height Body mass index (BMI) Body weight Provider Name and Address Organization Details Last Updated DateTime 02/27/2023 177.8 cm 27.3 kg/m2 45338.55 g Gregg Godinez [facility] 02/27/2023 10:59:27 Date Recorded Body height Body mass index (BMI) Body weight Provider Name and Address Organization Details Last Updated DateTime 07/10/2023 177.8 cm 27.3 kg/m2 56134.55 g Gregg Godinez [facility] 07/10/2023 10:30:30 Date Recorded Body height Body mass index (BMI) Body weight Provider Name and Address Organization Details Last Updated DateTime 02/12/2024 177.8 cm 27.3 kg/m2 48077.55 g Jerry Almanza MD [address] [place] [address] [place] [address] 02/12/2024 11:30:14 Date Recorded Body height Body mass index (BMI) Body weight Provider Name and Address Organization Details Last Updated DateTime 04/17/2024 177.8 cm 27.3 kg/m2 69336.55 g Jerry Almanza MD [address] [place] [address],[address], [address] 04/17/2024 10:44:43 Date Recorded Body height Body mass index (BMI) Body weight Provider Name and Address Organization Details Last Updated DateTime 09/23/2024 177.8 cm 27.3 kg/m2 74074.55 g Alexandra Jack [facility] 09/23/2024 10:52:42 Social History Question Answer Notes LastModified by Organizat ion Details LastModified Time Tobacco Smoking Status Former Smoker Jerry Almanza MD [address] [place] [address],[address] [place], [address], [facility] 04/11/2022 11:53:29 What Is Your Level Of Alcohol Consumption? Moderate [email or web address] Information not available 04/11/2022 What Is Your Level Of Caffeine Consumption? Moderate [email or web address] Information not available 04/11/2022 When Did You Quit Smoking? 16+yearssince lastcigarette Information not available 04/11/2022 What Was The Date Of Your Most Recent Tobacco Screening? 09/23/2024 Information not available 09/23/2024 Have You Ever Been Counseled For Unhealthy Alcohol Use? No Information not available 09/23/2024 Do You Use Any Illicit Or Recreational Drugs? No Information not available 09/23/2024 Has Tobacco Cessation Counseling Been Provided? No Information not available 09/23/2024 Do You Or Have You Ever Used Any Other Forms Of Tobacco Or Nicotine? No Information not available 09/23/2024 How Many Days In The Past Year Have You Consumed 5 Or More Drinks? 0 Information no t available 09/23/2024 Sex: Unknown Functional Status None recorded. Mental Status None recorded. Family History Relationship Description Onset Age of this Age Resolved Age Notes LastModified by Organization Details LastModified Time Father Family history of cardiac disorder [email or web address] Not available 04/11 11:53:13 Medical History Condition Response Sexually Transmitted Infection N Diabetes N Other N Bleeding Disorder N High Blood Pressure N Kidney Stones N High Cholesterol Y GERD/Acid Reflux N Heart Disease N Cancer N Depression N Lung Disease N Immunizations Vaccine Type Date Status Provider Name and Address Organization Details Recorded Time Influenza, high-dose, quadrivalent, PF 08/17/2021 completed Alexandra goodwin [facility] 09/23/2024 10:52:52 COVID-19, mRNA, LNP-S, PF, 100 mcg/0.5mL dose or 50 mcg/0.25mL dose 12/24/2020 completed Alexandra goodwin [facility] 09/23/2024 10:52:52 COVID-19, mRNA, LNP-S, PF, 100 mcg/0.5mL dose or 50 mcg/0.25mL dose 01/21/2021 completed Dezera Sieracki null, [facility] 09/23/2024 10:52:52 COVID-19, mRNA, LNP-S, PF, 100 mcg/0.5mL dose or 50 mcg/0.25mL dose 02/14/2022 completed Dezera Sieracki null, [facility] 09/23/2024 10:52:52 COVID-19, mRNA, LNP-S, PF, 100 mcg/0.5mL dose or 50 mcg/0.25mL dose 08/31/2021 completed Dezera Sieracki null, [facility] 09/23/2024 10:52:52 pneumococcal polysaccharide PPV23 04/02/2012 completed Dezera Sieracki null, [facility] 09/23/2024 10:52:52 Tdap 08/10/2008 completed Dezera Sieracki null, [facility] 09/23/2024 10:52:52 Novel [id number], all formulations 10/09/2009 completed Dezera Sieracki null, [facility] 09/23/2024 10:52:52 Pneumococcal conjugate PCV 13 10/21/2015 completed Dezera Sieracki null, [facility] 09/23/2024 10:52:52 Influenza, high-dose, trivalent, PF 07/21/2020 completed Dezera Sieracki null, [facility] 09/23/2024 10:52:52 Influenza, high-dose, trivalent, PF 08/19/2020 completed Dezera Sieracki null, [facility] 09/23/2024 10:52:52 Influenza, high-dose, trivalent, PF 08/31/2016 completed Dezera Sieracki null, [facility] 09/23/2024 10:52:52 Influenza, high-dose, trivalent, PF 08/31/2017 completed Dezera Sieracki null, [facility] 09/23/2024 10:52:52 Influenza, high-dose, trivalent, PF 09/02/2014 completed Dezera Sieracki null, [facility] 09/23/2024 10:52:52 Influenza, high-dose, trivalent, PF 09/17/2018 completed Dezera Sieracki null, [facility] 09/23/2024 10:52:52 Influenza, split virus, trivalent, preservative 08/23/2007 completed Dezera Sieracki null, [facility] 09/23/2024 10:52:52 Influenza, split virus, trivalent, preservative 09/10/2006 completed Dezera Sieracki null, [facility] 09/23/2024 10:52:52 Influenza, split virus, trivalent, PF 07/21/2009 completed Dezera Sieracki null, [facility] 09/23/2024 10:52:52 Influenza, split virus, trivalent, PF 08/22/2011 completed Dezera Sieracki null, [facility] 09/23/2024 10:52:53 Influenza, split virus, trivalent, PF 08/30/2012 completed Dezera Sieracki null, [facility] 09/23/2024 10:52:53 Influenza, split virus, trivalent, PF 10/12/2010 completed Dezera Sieracki null, [facility] 09/23/2024 10:52:53 Hep A, adult 10/27/2005 completed Dezera Sieracki null, [facility] 09/23/2024 10:52:53 Hep A, pediatric, unspecified formulation 03/08/2005 completed Dezera Sieracki null, [facility] 09/23/2024 10:52:53 Influenza, split virus, quadrivalent, PF 09/18/2019 completed Dezera Sieracki null, [facility] 09/23/2024 10:52:53 Past Encounters Encounter ID Performer Location Encounter Start Date Encounter Closed Date Diagnosis/Indication Diagnosis SNOMED-CT Code Diagnosis ICD10 Code [id number] Jerry Almanza MD [facility] [place] [address] [facility] [place] [address] 04/11/2022 11:38:10 04/19/2022 16:24:59 Urgent desire to urinate 79271440 R39.15 Lower urin monster tract symptoms due to benign prostatic hypertrophy 6066543792 9101 N40.1 [id number] Jerry Almanza MD _[facility] [address] [place] [address],[address] [place], [place] [address] [address] 01/23/2023 11:18:41 01/26/2023 09:29:51 Urinary tract infectious disease 97068151 N39.0 Lower urin monster tract symptoms due to benign prostatic hypertrophy 9955374179 9101 N40.1 [id number] Jerry Almanza MD [address] [place] [address] 02/27/2023 10:58:22 03/02/2023 09:35:07 Lower urinary tract symptoms due to benign prostatic hypertrophy 4207699326 9101 N40.1 [id number] Jerry Almanza MD [address] [place] [address] 07/10/2023 10:21:05 07/16/2023 19:10:05 Lower urinary tract symptoms due to benign prostatic hypertrophy 9608855918 9101 N40.1 [id number] Jerry Almanza MD [address] [place] [address] 02/12/2024 11:04:41 02/12/2024 15:49:27 Lower urinary tract symptoms due to benign prostatic hypertrophy 9187338700 9101 N40.1 [id number] Jerry Almanza MD [facility] [address] [place] [address],[address] [place] [address] 04/17/2024 10:27:47 04/25/2024 16:54:39 Hydronephrosis 44424465 N13.30 [id number] Alexandra Garciakrishan [address] [place] [address] 09/23/2024 10:34:08 09/24/2024 10:30:38 Hydronephrosis 73219240 N13.30 Lower urin monster tract symptoms due to benign prostatic hypertrophy 7891730457 9101 N40.1 Health Concerns Section Related Observation LastModified by Organization Detai ls LastModified Time None Recorded Concern Status LastModified by Organization Details LastModified Time None Recorded Advance Directives Directive None Recorded Payers Encounter Date Sequence Insurance Name Policy Number Policy Colindres Covered Member ID Colindres Member ID Guarantor Name 02/27/2023 1 [place] [id number] Barrie Jasonosinski [id number] Barrie Beverly Klosinski 07/10/2023 1 [place] [id number] Barrie Jasonosinski [id number] Barrie Beverly Klosinski 02/12/2024 1 [place] [id number] Barrie Jasonosinski [id number] Barrie Beverly Klosinski 04/17/2024 1 [place] [id number] Barrie Jasonosinski [id number] Barrie Beverly Klosinski 09/23/2024 1 [place] [id number] Barrie Segovaiski [id number] Barrie Ambrizi Notes Date Note Type Note Provider Name and Address Organization Details Recorded Time 02/27/2023 text/html This visit was conducted by telephone due [...] care. call to follow up [facility] done [facility]. showed findings similar to CT from [place] with prominent but not obstructed left distal ureter. Jerry Almanza MD [address] [place] [address],[address], [place], [address], [facility] 02/27/2023 12:11:02 07/10/2023 text/html here for UA and PVR today. taking finasteride and 2 tamsulosin per day/ UA clear and PVR 62ml today. going to [facility] in October. voiding well. Jerry Almanza MD [address] [place] [address],[address], [place], [address], [facility] 07/10/2023 10:53:22 02/12/2024 text/html Patient is here for follow up. PVR 85ml. [...] tightness of suprapubic area. Jerry Almanza MD [address] [place] [address],[address], [place], [address], [facility] 02/12/2024 11:46:53 04/17/2024 text/html Patient is here for Hydronephrosis. 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 Jerry Almanza MD [address] [place] [address],[address], [place], [address], [facility] 04/17/2024 11:07:08 09/23/2024 text/html follow up BPH/UT I sx's. taking finasteride and 2 tamsulosin per day. had another bout of sx's with hematuria, UC negative but got better with cipro. PSA last week was 2.88, UA clear and PVR 30ml today. Alexandra goodwin [place] [facility] 09/23/2024 11:17:13
--- OUTSIDE RECORDS SUMMARY | 2024-09-26 08:08 | XMS_ITS | Clinical Summary ---
Author Organization [employer] [facility] Address [place], [place] [address] Care Team Providers Care Instructional Support Services Director Name Role Phone MadieChelle Karla Primary Care Provider [phone] Allergies Active Allergy Reactions Criticality Noted Date Comments Ezetimibe Rash,Myalgia Medium 02/22/2010 sporonex Zetia Itraconazole Rash Medium sporonox Melon Shortness Of Breath,Dyspnea Medium 03/29/2017 Melon Flavor 04/01/2009 Simvastatin Myalgia Medium 02/22/2010 Elevated blood glucose as well.Has tried all statins Spice Flavor Anaphylaxis 04/01/2009 pinto Medications Medication Sig Dispensed Refills Start Date End Date Status Vit A,C,H-Ztdm-Fjvams (ICAPS AREDS) [phone] nwsk-jh-umwo cap Take 1 tablet by mouth 2 [...] mg by mouth once daily. 04/11/2022 Active omeprazole (PRILOSEC) 40 mg Delayed-Release capsuleIndications :Chronic GERD Take 1 Capsule (40 mg) by mouth once daily before a meal. 90 Capsule 4 03/07/2024 Active traMADoL (ULTRAM) 50 mg tabletIndications: Lumbar radiculopathy,Lumb ar foraminal stenosis,Lumbar facet arthropathy Take 1 Tablet (50 mg) by mouth 3 times daily if needed for Pain. 24 Tablet 1 05/19/2024 Active docosahexaenoic acid/epa (FISH OIL ORAL) Take by mouth. Active alirocumab (Praluent Pen) 150 mg/mL pnij Inject 150 mg subcutaneous every 2 weeks. 2 mL 5 09/08/2024 Active Active Problems Problem Noted Date Diagnosed Date Abnormal CT scan, pelvis 03/04/2023 Overview (03/04/2023): ureteral finding. current work up for possible neoplasm being done. 02/25. DDD (degenerative disc disease), cervical 2018 Facet arthritis, degenerative, cervical spine Spinal stenosis, lumbar gabbi on, without neurogenic claudication 03/29/2017 Benign non-nodular prostatic hyperplasia with lower urinary tract symptoms 09/18/2016 Displacement of lumbar inter vertebral disc without myelopathy 04/18/2010 GERD (gastroesophageal reflux disease) 9 Overview (04/01/2024): EGD 04/2021 hiatal hernia, no Rosenberg's EGD 03/2024 relux, HH, no Rosenberg's Neuroma 04/04/2009 CAD (coronary artery disease) 08/10/2008 Unspecified sleep apnea Hyperlipidemia LDL goal < 100 Overview (08/10/2008): ldl goal <100 (per cardiology 03/12/07) Impaired fasting glucose Resolved Problems Problem Noted Date Diagnosed Date Resolved Date Chest pain, unspecified 03/2023 Encounters Date Type Department Care Team Description 09/18/2024 8:15 AM REMITTANCE CLERK Orders Only [facility] [address] [place] [address] Lab, [place] Lab 09/18/2024 Travel 09/09/2024 Telephone [facility] [address] [place] [address] Gerardo Antoine MD Questions 09/08/2024 Orders Only [facility] [address] [place] [address] Jose E Fraire MD <No scans attached> 09/08/2024 Telephone [facility] [address] [place] [address] Jose E Fraire MD Medication Management 08/11/2024 9:55 AM CDT Office Visit [facility] [address] [facility] [address] [place] [address] Chelle Crawley, RALPH Blood In Urine 08/11/2024 Travel 07/28/2024 1:00 PM CDT Office Visit [facility] [address] [place] [address] Gerardo Antoine MD Musculoskeletal Problem (Follow up right L3-4 and L4-5 transforaminal epidural steroid injection on 05/27/24) 07/28/2024 Travel 07/15/2024 8:30 AM CDT Office Visit [facility] [address] [place] [address] Jose E Fraire MD Consult (Hyperlipidemia ) 07/15/2024 Travel 07/11/2024 3:00 PM CDT Orders Only [facility] [address] [place] [address] Lab, [place] Lab 07/11/2024 Travel from Last 3 Months Immunizations Name [...] Comments Hepatitis Brother 2 awaiting transp lant Heart Disease Father Other Father macular degener ation Other Mother macular degener ation Cancer Sister 1 cancer-appendix Good Health Son 2 Relation Name Status Comments Brother 1 Alive Brother 2 Alive Father Alive Mother Alive Sister 1 Alive Sister 2 Alive Sister 3 Alive Son 1 Alive Son 2 Social History [...] 0 03/07/2024 Social Connections Answer Date Recorded Do you often feel lonely or isolated from those around you? 0 03/07/2024 Financial Resource Strain Answer Date R ecorded Difficulty of Paying Living Expenses 3 03/07/2024 Difficulty of Paying Living Expenses Not on file 03/07/2024 Food Insecurity Answer Date Recorded Do you worry your food will run out before you are able to buy more? 1 03/07/2024 Transportation Needs Answer Date Record ed Does lack of transportation keep you from medica l appointments? 1 03/07/2024 Does lack of transportation keep you from work, meetings or getting things that you need? 1 03/07/2024 Housing Stability Answer Date Recorded What is your housing situation today? 1 03/07/2024 Sex and Gender Information Value Date Recorded Sex Assigned at Not on file Gender Identity Not on file Sexual Orientation Not on file Obstetrics History Last Filed Vital Signs Vital Sign Reading Time Taken Comments Blood Pressure 142/62 08/11/2024 10:53 AM CDT Pulse 82 08/11/2024 10:53 AM CDT Temperature 36.1 C (97 F) 08/11/2024 10:53 AM CDT Respiratory Rate 18 04/05/2024 9:52 AM CDT Oxygen Saturation 97% 08/11/2024 10:53 AM CDT Inhaled Oxygen Concentration - - Weight 88.5 kg (195 lb) 07/15/2024 8:34 AM CDT Height 176.5 cm (5' 9.49) 03/07/2024 8:33 AM CD T with shoes Body Mass Index 28.39 03/07/2024 8:33 AM CDT Plan of Treatment Upcoming Encounters Date Type Department Care Team (Late st Contact Info) Description 09/26/2024 8:40 AM REMITTANCE CLERK Office Visit [facility] [address] [place] [address] Gerardo Antoine MD [address] [place] [address] Arrived Health Maintenance Due Date Last Done Comments [...] series for age 65+ Completed 5, 04/02/2012 Hepatitis C screening for ag e 18-79 Completed 03/09/2023 RSV vaccine for adults or Completed 10/02/2023, 07/06/2023 COVID-19 vaccine series Completed 08/25/20 24, 10/08/2023, 06/29/2023, Additional history exists Procedures Procedure Name Priority Date/Time Associated Diagnosis Comments AMB EPIDURAL STEROID INJECTION Routine 09/26/2024 8:00 AM REMITTANCE CLERK Lumbar radiculopathy Lumbar foraminal stenosis Lumbar facet arthropathy URINE CULTURE Routine 08/11/2024 10:39 AM CDT Urinary symptom or sign UA W/ SEDIMENT EXAM REFLEXED PER CRITERIA Routine 08/11/2024 10:39 AM CDT Urinary symptom or sign HEMOGLOBIN A1C Routine 07/11/2024 3:10 PM CDT Hyperlipidemia LDL goal < 100 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 angina pectoris, unspecified vessel or lesion type, unspecified whether [place] or transplanted heart Impaired fasting glucose ALT (SGPT) Routine 07/11/2024 3:10 PM CDT Hyperlipidemia LDL goal < 100 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 angina pectoris, unspecified vessel or lesion type, unspecified whether [place] or transplanted heart APOLIPOPROTEIN B Routine 07/11/2024 3:10 PM CDT Hyperlipidemia LDL goal < 100 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 angina pectoris, unspecified vessel or lesion type, unspecified whether [place] or transplanted heart BASIC METABOLIC PANEL Routine 07/11/2024 3:10 PM CDT Hyperlipidemia LDL goal < 100 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 angina pectoris, unspecified vessel or lesion type, unspecified whether [place] or transplanted heart VITAMIN D 25 (DEFICIENCY) Routine 07/11/2024 3:10 PM CDT Hyperlipidemia LDL goal < 100 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 angina pectoris, unspecified vessel or lesion type, unspecified whether [place] or transplanted heart CK TOTAL Routine 07/11/2024 3:10 PM CDT Hyperlipidemia LDL goal < 100 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 angina pectoris, unspecified vessel or lesion type, unspecified whether [place] or transplanted heart HIGH [id number] Routine 07/11/2024 3:10 PM CDT Hyperlipidemia LDL goal < 100 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 angina pectoris, unspecified vessel or lesion type, unspecified whether [place] or transplanted heart TSH Routine 07/11/2024 3:10 PM CDT Hyperlipidemia LDL goal < 100 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 angina pectoris, unspecified vessel or lesion type, unspecified whether [place] or transplanted heart AST (SGOT) Routine 07/11/2024 3:10 PM CDT Hyperlipidemia LDL goal < 100 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 angina pectoris, unspecified vessel or lesion type, unspecified whether [place] or transplanted heart LIPOPROTEIN A Routine 07/11/2024 3:10 PM CDT Hyperlipidemia LDL goal < 100 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 angina pectoris, unspecified vessel or lesion type, unspecified whether [place] or transplanted heart LIPID PANEL W REFLEX MEASURED LDL Routine 07/11/2024 3:10 PM CDT Hyperlipidemia LDL goal < 100 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 angina pectoris, unspecified vessel or lesion type, unspecified whether [place] or transplanted heart LC HCV ANTIBODY RFX TO QUANT PCR Routine 03/09/2023 7:54 AM CDT Need for hepatitis C screening test from Last 3 Months or Most Recently Relevant to Health Maintenance Results * URINE CULTURE (08/11/2024 10:39 AM CDT) CULTURE, URINE, ROUTINE SEE NOTE [facility] Comment: CULTURE, URINE, ROUTINE Micro Number: [id number] Test Status: Final Specimen Source: Urine Specimen Quality: Adequate Result: No Growth Urine URINE SPECIMEN / Unknown 08/11/2024 10:39 AM CDT 08/11/2024 10:40 AM CDT Chelle Crawley NP MICROBIOLOGY [email or web address] [facility] [address] [place] [address], [facility] [address] [place] [address] * (ABNORMAL) UA W/ SEDIMENT EXAM REFLEXED PER CRITERIA (08/11/2024 10:39 AM CDT) COLOR BROWN(A) YELLOW [facility] APPEARANCE TURBID(A) CLEAR [facility] SPECIFIC GRAVITY 1.020 1.001 - 1.035 [facility] PH 5.5 5.0 - 8.0 [facility] GLUCOSE NEGATIVE NEGATIVE [facility] BILIRUBIN NEGATIVE NEGATIVE [facility]) KETONES NEGATIVE NEGATIVE [facility] OCCULT BLOOD 3+(A) NEGATIVE [facility]) PROTEIN 3+(A) NEGATIVE [facility] NITRITE NEGATIVE NEGATIVE [facility] LEUKOCYTE ESTERASE 1+(A) NEGATIVE [facility] WBC UA PACKED(A) < OR = 5 /HPF [facility]) RBC UA PACKED(A) < OR = 2 /HPF [facility]) SQUAMOUS EPITHELIAL CELLS UA 0-5 < OR = 5 /HPF [facility]) BACTERIA UA MANY(A) NONE SEEN /HPF [facility]) COMMENTS UA MODERATE MUCOUS THREADS [facility] NOTE UA [facility] Comment: This urine was analyzed for the presence of WBC, RBC, bacteria, casts, and other formed elements. Only those elements seen were reported. Urine URINE SPECIMEN / Unknown 08/11/2024 10:39 AM CDT 08/11/2024 10:40 AM CDT Chelle Crawley NP URINE [facility] [address] [place] [address], [facility] Care) [address] [place] [address] * (ABNORMAL) LIPOPROTEIN A (07/11/2024 3:10 PM CDT) Pathologist [facility] LIPOPROTEIN (A) 119.4(H) <75.0 nmol/L 07/16/2024 5:11 AM CDT [facility] ([facility]) Comment: Note: Values greater than or equal to 75.0 nmol/L may indicate an independent risk factor for CHD, but must be evaluated with caution when applied to non- populations due to the influence of genetic factors on Lp(a) across ethnicities. Blood BLOOD SPECIMEN / Unknown Venipuncture / Unknown 07/11/2024 3:10 PM CDT 07/11/2024 3:10 PM CDT Narrative [facility] ([facility]) - 07/16/2024 5:11 AM CDT Performed at: [address] [place] [id number] Carousel Attendant: Georges Ahumada MD, Phone: [phone] Jose E Fraire MD SEND OUTS [facility] ([facility]) [address] [place] [address], * (ABNORMAL) APOLIPOPROTEIN B (07/11/2024 3:10 PM CDT) [facility] Apolipoprotein B 139(H) <90 mg/dL 07/15/20 9:11 AM CDT [facility] ([facility]) Comment: Desirable < 90 Borderline High 90 - 99 High 100 - 130 Very High >130 ASCVD RISK THERAPEUTIC TARGET CATEGORY APO B (mg/dL) Very High Risk <80 (if extreme risk <70) High Risk <90 Moderate Risk <90 Blood BLOOD SPECIMEN / Unknown Venipuncture / Unknown 07/11/2024 3:10 PM CDT 07/11/2024 3:10 PM CDT Narrative [facility] ([facility]) - 07/15/2024 9:11 AM CDT Performed at: [address] [place] [id number] Carousel Attendant: Eliezer Alfaro MD, Phone: [phone] Jose E Fraire MD SEND OUTS [facility] ([facility]) [address] [place] [address], * HEMOGLOBIN A1C SCREENING (07/11/2024 3:10 PM CDT) HEMOGLOBIN A1C SCREENING 4.9 <=6.4 % 07/12/2024 8:09 AM CDT [facility] [employer] [facility] Blood BLOOD SPECIMEN / Unknown Venipuncture / Unknown 07/11/2024 3:10 PM CDT 07/11/2024 3:10 PM CDT Narrative [facility] [employer] [facility] - 07/12/2024 8:09 AM CDT (<5.7%) Normal (5.7% to 6.4%) Indicates prediabetes (>=6.5%) Confirms diabetes Falsely low levels may be seen with: Recent Transfusion, Recent Significant Blood Loss, Hemolytic Diseases, or Falsely elevated levels may be seen with: Untreated Anemias, Splenectomy Jose E Fraire MD CHEMISTRY [facility] [employer] [facility] [address] [place] [address], * (ABNORMAL) LIPID PANEL W REFLEX MEASURED LDL (07/11/2024 3:10 PM CDT) CHOLESTEROL,TOTAL 237(H) 100 - 199 mg/dL 07/11/2024 11:41 PM CDT [facility] [employer] [facility] Comment: Cholesterol, Total Reference Ranges Desirable <200 mg/dL Borderline 200-239 mg/dL High >=240 mg/dL TRIGLYCERIDES 277(H) <150 mg/dL 07/11/2024 11:41 PM CDT [facility] HDL CHOLESTEROL 42 >40 mg/dL 11:41 PM CDT [facility] NON-HDL CHOLESTEROL 195(H) <145 mg/dl 07/11/2024 11:41 PM CDT [facility] CHOL/HDL RATIO 5.64(H) <4.50 07/11/2024 11:41 PM CDT [facility] LDL CHOLESTEROL 140(H) <=130 mg/dL 07/11/2024 11:41 PM CDT [facility] VLDL CHOLESTEROL 55(H) <=30 mg/dL 07/11/2024 11:41 PM CDT [facility] PROVIDER ORDERED STATUS FASTING 07/11/2024 11:41 PM CDT [facility] Blood BLOOD SPECIMEN / Unknown Venipuncture / Unknown 07/11/2024 3:10 PM CDT 07/11/2024 3:10 PM CDT Jose E Fraire MD [facility]STRY [facility] [address] [place] [address], * VITAMIN D 25 (DEFICIENCY) (07/11/2024 3:10 PM CDT) VITAMIN D TOTAL 38.5 20.0 - 80.0 ng/mL 07/11/2024 11:41 PM CDT [facility] Blood BLOOD SPECIMEN / Unknown Venipuncture / Unknown 07/11/2024 3:10 PM CDT 07/11/2024 3:10 PM CDT Narrative [facility] - 07/11/2024 11:41 PM CDT Vitamin D Status Deficiency: <20 ng/mL Insufficiency: 20-29 ng/mL Sufficiency: 30-80 ng/mL Possible Toxicity: >80 ng/mL Based on [place] of Medicine recommendations Biotin supplements may cause clinically significant interference for this test assay. If interference is suspected, it is strongly recommended that biotin is discontinued for at least one week prior to retesting. Jose E Fraire MD SEND OUTS Performing Organization Address City/[facility]/ZIP Co de Phone Number [facility] [address] [place] [address], * TSH (07/11/2024 3:10 PM CDT) TSH 1.66 0.27 - 4.20 uIU/mL 07/11/2024 11:41 PM CDT [facility] Blood BLOOD SPECIMEN / Unknown Venipuncture / Unknown 07/11/2024 3:10 PM CDT 07/11/2024 3:10 PM CDT Narrative [facility] - 07/11/2024 11:41 PM CDT In Adults, TSH values between 5.00 and 10.00 uIU/ml do not necessarily indicate the presence of Hypothyroidism. Correlation with clinical findings such as presence of goiter and/or Thyroperoxidase (TPO) Antibody may be helpful. For more information please refer to JARRET 2004; 291: 228-238. Jose E Fraire MD CHEMISTRY Performing Organization Address City/[facility] Co de Phone Number [facility] [address] [place] [address], * HIGH [id number] (07/11/2024 3:10 PM CDT) HS CRP 1.10 mg/L 07/11/2024 11:42 PM CDT [facility] Blood BLOOD SPECIMEN / Unknown Venipuncture / Unknown 07/11/2024 3:10 PM CDT 07/11/2024 3:10 PM CDT Narrative [facility] - 07/11/2024 11:42 PM CDT CDC/AHA indicates a result of 1.00-3.00 mg/L is associated with average risk of cardiovascular disease. Jose E Fraire MD CHEMISTRY Performing Organization Address [facility] Co de Phone Number [facility] [address] [place] [address], [place] * ALT (SGPT) (07/11/2024 3:10 PM CDT) ALT (SGPT) 22 10 - 50 IU/L 07/11/2024 11:41 PM CDT [facility] Blood BLOOD SPECIMEN / Unknown Venipuncture / Unknown 07/11/2024 3:10 PM CDT 07/11/2024 3:10 PM CDT Jose E Fraire MD CHEMISTRY Performing Organization Address [facility] de Phone Number [facility] [address] [place] [address], [place] * AST (SGOT) (07/11/2024 3:10 PM CDT) AST (SGOT) 25 10 - 50 IU/L 07/11/2024 11:41 PM CDT [facility] Blood BLOOD SPECIMEN / Unknown Venipuncture / Unknown 07/11/2024 3:10 PM CDT 07/11/2024 3:10 PM CDT Jose E Fraire MD CHEMISTRY Performing Organization Address [facility] de Phone Number [facility] [address] [place] [address], [place] * CK TOTAL (07/11/2024 3:10 PM CDT) CK,TOTAL 92 39 - 308 IU/L 07/12/2024 12:04 AM CDT [facility] Blood BLOOD SPECIMEN / Unknown Venipuncture / Unknown 07/11/2024 3:10 PM CDT 07/11/2024 3:10 PM CDT Jose E Fraire MD CHEMISTRY Performing Organization Address City/[facility] Co de Phone Number [facility] [address] [place] [address] [place] [address], * (ABNORMAL) BASIC METABOLIC PANEL (07/11/2024 3:10 PM CDT) SODIUM 144 136 - 145 mmol/L 07/11/2024 11:41 PM CDT [facility] POTASSIUM 4.3 3.5 - 5.1 mmol/L 07/11/2024 11:41 PM T [facility] CHLORIDE 111(H) 98 - 107 mmol/L 07/11/2024 11:41 PM CDT [facility] CO2,TOTAL 23 22 - 29 mmol/L 07/11/2024 11:41 PM T [facility] ANION GAP 10 5 - 18 07/11/2024 11:41 PM T [facility] GLUCOSE 85 70 - 99 mg/dL 07/11/2024 11:41 PM T [facility] CALCIUM 9.2 8.8 - 10.2 mg/dL 07/11/2024 11:41 PM T [facility] BUN 16 8 - 23 mg/dL 07/11/2024 11:41 PM T [facility] CREATININE 1.34(H) 0.70 - 1.20 mg/dL 07/11/2024 11:41 PM T [facility] BUN/CREAT RATIO 12 10 - 20 11:41 PM T [facility] eGFR 55(L) >90 mL/min/1.7 3m2 07/11/2024 11:41 PM T [facility] Comment:As of 2022, eG FR is calculated by the CKD-EPI creatinine equation without race adjustment. eGFR can be influenced by muscle mass, exercise, and diet. The reported eGFR is an estimation only and is only applicable if the renal function is stable. Blood BLOOD SPECIMEN / Unknown Venipuncture / Unknown 07/11/2024 3:10 PM CDT 07/11/2024 3:10 PM CDT Jose E Fraire MD CHEMISTRY [facility] [address] [place] [address], * LC HCV ANTIBODY RFX TO QUANT PCR (03/09/2023 7:54 AM CDT) HCV Ab Non Reactive Non Reactive 03/13/2023 1:[address] [facility] ([facility]) Blood BLOOD SPECIMEN / Unknown Venipuncture / Unknown 03/09/2023 7:54 AM CDT 03/09/2023 7:56 AM CDT Narrative [facility] ([facility]) - 03/13/2023 1:10 PM CDT Performed at: [address] [place] [id number] Carousel Attendant: Eliezer Alfaro MD, Phone: [phone] Chelle Ramachandran DO LABORATORY [facility] ([facility]) [address] [place] [address] from Last 3 Months or Most Recently [...] Comments Code Status Discussion: Discussed Care Teams Instructional Support Services Director Relationship Specialty Start Date End Date Chelle [place]ran [place] [address] PCP - General Family Practice 08/31/17
--- OUTSIDE RECORDS SUMMARY | 2024-09-26 08:08 | XMS_ITS | Continuity of Care Document ---
Author Organization [place] - [facility], [facility] Address [address] [place] [address] [address] [place] [address] Assessment No assessment recorded. Plan of Treatment Reminders Order Date Submit Date Provider Last Modified By Organization Details Last Modified Time Details Appointments None recorded. Lab urinalysis , dipstick 2023 [facility], [address] [place] [address], [place] [address], [place], [address], 4 10:55:15 Referral None recorded. Procedures bladder scan (PROC) 2023 [facility], [facility]5 [facility], Suite [facility], [place], [address], 4 10:55:15 Surgeries None recorded. Imaging None recorded. Medication Orders ciprofloxa priti 500 mg tablet 2023 [facility] [id number] [employer], [facility], [facility], [address], 4 11:14:45 finasterid e 5 mg tablet 2023 [facility] [id number] [employer], [facility], [facility] [address], [address], 4 11:16:57 Patient TargetsNo targets recorded. Patient Instructions Encounter Date Encounter Id Patient Instructions Last Modified By Organization Details Last Modified Time 09/23/2024 [id number] will send rx for cipro bid if gets flareup while in [place]. plan rtc 6 months. [email or web address] Not available 09/23/2024 11:15:34 Reason for Referral None Reported. Results Created Date Observation Date Name Description Value Unit Range Abnormal Flag Note LastModifiedBy Organization Detail LastModifiedTime 09/23/20 24 09/23/2024 urina lysis , dipst ick Color-Status Yellow Not Available [address], [place], [address], 09/17/2024 10:22:36 09/23/20 24 09/23/2024 urina lysis , dipst ick Clarity-Stat us Clear Not Available [address], [place], [address], 09/17/2024 10:22:36 09/23/20 24 09/23/2024 urina lysis , dipst ick Sp [place]-Stat us 1.025 Not Available [address], [place], [address], 09/17/2024 10:22:36 09/23/20 24 09/23/2024 urina lysis , dipst ick pH-Status 5.5 Not Available [address], [place], [address], 09/17/2024 10:22:36 09/23/20 24 09/23/2024 urina lysis , dipst ick Nitrates-Sta tus negati ve Not Available [address], [place], [address], 09/17/2024 10:22:36 09/23/20 24 09/23/2024 urina lysis , dipst ick Blood-Status Negati ve Not Available [address], [place], [address], 09/17/2024 10:22:36 09/23/20 24 09/23/2024 urina lysis , dipst ick Leuko-Status Negati ve Not Available [address], [place], [address], 09/17/2024 10:22:36 09/23/20 24 09/23/2024 urina lysis , dipst ick Specimen Type Voided Not Available [address], [place], [address], 09/17/2024 10:22:36 09/23/20 24 09/23/2024 bladd er scan (PROC ) Volume (in mL) 30 Not Available [address] [place], [place], [address], 09/17/2024 10:22:41 Result Notes None recorded. Problems Name Problem SNOMED Code Status Onset Date Resolution Date Notes Provider Name and Address Organization Details Recorded Time Lower urinary tract symptoms due to benign prostatic hypertrophy 8652338028861 1 Active 2022 Jerry Almanza MD [address] [place] [address], [address], [facility] 3 12:18:40 Hydronephro sis 44823509 Active 2023 Jerry Almanza MD [address] [place] [address], [phone], [facility] 4 11:02:11 Problem Notes None recorded. Procedures Surgical History Date Name Laterality Status Provider Name and Address Organization Details Recorded Time 4 Bladder Scan completed Alexandra Jack [facility] 09/23/2024 10:52:18 4 Bladder Scan completed Jerry Almanza MD [address] [place] [address],[address], [place], [address], [facility] 02/12/2024 11:28:36 3 Bladder Scan completed Gregg Godinez [facility] 07/10/2023 10:39:00 3 Bladder Scan completed Jerry Almanza MD [address] [place] [address],[address], [place], [address], [facility] 01/23/2023 12:05:08 2 Bladder Scan completed Jerry Almanza MD [address] [place] [address],[address], [place], [address], [facility] 04/11/2022 11:55:29 procedure on back completed Jerry Almanza MD [address] [place] [address],[address], [place], [address], [facility] 04/11/2022 11:53:44 total replacement of hip completed Jerry Almanza MD [address] [place] [address],[address], [place], [address], [facility] 04/11/2022 11:54:04 Vasectomy completed Jerry Almanza MD [address] [place] [address],[address], [place], [address], [facility] 04/11/2022 11:54:11 Imaging Results None recorded. Procedure Notes None recorded. Medical Equipment None Reported. Allergies Allergen ID Allergen Name Allergen Category Reaction Reaction Severity Criticality Documentation Date Start Date Code Code System Note Provider Name and Address Organization Details Recorded Time 368379 [facility] n Not available Not available Not available 04/11/202286951 6 RxNorm Jerry Almanza MD [address] [place] [address],[address] [place] [address], [address], [facility] 2 11:51:49 152997 melon extract food Not available Not available Not available 04/11/2022 88589 10 RxNorm Jerry Almanza MD [address] [place] [address],[address], [address], [facility] 2 11:51:54 117182 Product containin g 3-hydroxy -3-methyl glutaryl- coenzyme A reductase inhibitor (product) medicatio n Not available Not available Not available 04/11/2022 79097 009 SNOMED Jerry Almanza MD [address] [facility],[place] [address], [place], [address], [facility] 2 11:52:03 Medications [...] Updated DateTime 09/23/2024 177.8 cm 27.3 kg/m2 35168.55 g Alexandra Jack [facility] 09/23/2024 10:52:42 Social History Question Answer Notes LastModified by Organizat ion Details LastModified Time Tobacco Smoking Status Former Smoker Jerry Almanza MD [address] [facility] [address], [address], [facility] 04/11/2022 11:53:29 What Is Your Level Of Alcohol Consumption? Moderate [email or web address] Information not available 04/11/2022 What Is Your Level Of Caffeine Consumption? Moderate [email or web address] Information not available 04/11/2022 When Did You Quit Smoking? 16+yearssince lastcigarette [email or web address] Information not available 04/11/2022 What Was The [...] Time Father Family history of cardiac disorder [email or web address] Not available 04/11 11:53:13 Medical History Condition Response Other N High Blood Pressure N Kidney Stones N Depression N Lung Disease N GERD/Acid Reflux N Sexually Transmitted Infection N Cancer N High Cholesterol Y Diabetes N Bleeding Disorder N Heart Disease N Immunizations Vaccine Type Date Status Provider Name and Address Organization Details Recorded Time Influenza, high-dose, quadrivalent, PF 08/17/2021 completed Alexandra goodwin [facility] 09/23/2024 10:52:52 COVID-19, mRNA, LNP-S, PF, 100 mcg/0.5mL dose or 50 mcg/0.25mL dose 12/24/2020 completed Alexandra goodwin [facility] 09/23/2024 10:52:52 COVID-19, mRNA, LNP-S, PF, 100 mcg/0.5mL dose or 50 mcg/0.25mL dose 01/21/2021 completed Alexandra goodwin [facility] 09/23/2024 10:52:52 COVID-19, mRNA, LNP-S, PF, 100 mcg/0.5mL dose or 50 mcg/0.25mL dose 02/14/2022 completed Alexandra goodwin [facility] 09/23/2024 10:52:52 COVID-19, mRNA, LNP-S, PF, 100 mcg/0.5mL dose or 50 mcg/0.25mL dose 08/31/2021 completed Alexandra goodwin [facility] 09/23/2024 10:52:52 pneumococcal polysaccharide PPV23 04/02/2012 completed Alexandra goodwin [facility] 09/23/2024 10:52:52 Tdap 08/10/2008 completed Alexandra goodwin [facility] 09/23/2024 10:52:52 Novel [id number], all formulations 10/09/2009 completed Dezera Sieracki null, [facility] 09/23/2024 10:52:52 Pneumococcal conjugate PCV 13 10/21/2015 completed Dezera Sieracki null, [facility] 09/23/2024 10:52:52 Influenza, high-dose, trivalent, PF 07/21/2020 completed Dezera Sieracki null, [facility] 09/23/2024 10:52:52 Influenza, high-dose, trivalent, PF 08/19/2020 completed Dezera Sieracki null, [facility] 09/23/2024 10:52:52 Influenza, high-dose, trivalent, PF 08/31/2016 completed Dezera Sieracki null, [facility] 09/23/2024 10:52:52 Influenza, high-dose, trivalent, PF 08/31/2017 completed Dezera Sieracki null, [facility] 09/23/2024 10:52:52 Influenza, high-dose, trivalent, PF 09/02/2014 completed Dezera Sieracki null, [facility] 09/23/2024 10:52:52 Influenza, high-dose, trivalent, PF 09/17/2018 completed Dezera Sieracki null, [facility] 09/23/2024 10:52:52 Influenza, split virus, trivalent, preservative 08/23/2007 completed Dezera Sieracki null, [facility] 09/23/2024 10:52:52 Influenza, split virus, trivalent, preservative 09/10/2006 completed Dezera Sieracki null, [facility] 09/23/2024 10:52:52 Influenza, split virus, trivalent, PF 07/21/2009 completed Dezera Sieracki null, [facility] 09/23/2024 10:52:52 Influenza, split virus, trivalent, PF 08/22/2011 completed Dezera Sieracki null, [facility] 09/23/2024 10:52:53 Influenza, split virus, trivalent, PF 08/30/2012 completed Alexandra goodwin [facility] 09/23/2024 10:52:53 Influenza, split virus, trivalent, PF 10/12/2010 completed Alexandra goodwin [facility] 09/23/2024 10:52:53 Hep A, adult 10/27/2005 [facility] 10:52:53 Hep A, pediatric, unspecified formulation 03/08/2005 completed Alexandra goodwin [facility] 09/23/2024 10:52:53 Influenza, split virus, quadrivalent, PF 09/18/2019 completed Alexandra goodwin [facility] 09/23/2024 10:52:53 Past Encounters Encounter ID Performer Location Encounter Start Date Encounter Closed Date Diagnosis/Indication Diagnosis SNOMED-CT Code Diagnosis ICD10 Code [id number] Alexandra Jack [facility] [address] [facility],[address] [place] [address] 09/23/2024 10:34:08 09/24/2024 10:30:38 Hydronephrosis 14296239 N13.30 Lower urin monster tract symptoms due to benign prostatic hypertrophy 6192936549 9101 N40.1 Health Concerns Section Related Observation LastModified by Organization Detai ls LastModified Time None Recorded Concern Status LastModified by Organization Details LastModified Time None Recorded Payers Encounter Date Sequence Insurance Name Policy Number Policy Colindres Covered Member ID Colindres Member ID Guarantor Name 09/23/2024 1 [facility] [place] [employer] - MEDICARE COST [id number] Barrie Dinh [id number] Barrie Dinh Notes Date Note Type Note Provider Name and Address Organization Details Recorded Time 09/23/2024 text/html follow up BPH/UT I sx's. taking finasteride and 2 tamsulosin per day. had another bout of sx's with hematuria, UC negative but got better with cipro. PSA last week was 2.88, UA clear and PVR 30ml today. Alexandra goodwin [facility] 09/23/2024 11:17:13
--- OUTSIDE RECORDS SUMMARY | 2024-09-26 08:08 | XMS_ITS ---
Author Organization [facility] Address [address] [place] [address] Care Team Providers Care Utility Worker Production Name Role Phone Unavailable Unavailable Unavailable Surgery Details Not on file Complications Check Surgery Details section. Procedure Estimated Blood Loss Check Surgery Details section. Procedure Findings Check Surgery Details section. Procedure Specimens Taken Check Surgery Details section.
--- OUTSIDE RECORDS SUMMARY | 2024-09-26 08:08 | XMS_ITS | Encounter Summary ---
Author Organization [facility] Address [address] [place] [address] Care Team Providers Care White Metal Corrosion Proofer Name Role Phone Elsewhere, Pcp Primary Care Provider Unavailabl e Reason for Visit * Appointment Request (Routine) - Closed Specialty Diagnoses / Procedures Referred By Carl lovell Referred To Contact Dermatology Diagnoses Lesion Skin Nose Lesion Skin Face Referral ID Status Reason Start Date Expiration Date Visits Re quested Visits Authorized [id number] Closed 07/10/2024 07/10/2025 1 1 Encounter Details Date Type Department Care Team ([facility] st Contact Info) Description 07/24/2024 1:00 PM CDT Office Visit Department of Dermatology in [place], [place] [address] [place] [address] [place] [address] Sis Mcgovern M.D. [address] [place] [address] Hamilton Boyle M.D. [address] [place] [address] Keratosis Actinic (Primary Dx); Dermatoheliosis; Personal History Of Other Malignant Neoplasm Of Skin Social History Tobacco Use Types Packs/Day Years [...] as of this encounter Progress Notes * Hamilton Boyle M.D. - 07/24/2024 1:00 PM CDT SUBJECTIVE CHIEF COMPLAINT / REASON FOR VISIT Scalp spot check HISTORY OF PRESENT ILLNESS Barrie Dinh is a pleasant 78 y.o. male who presents for a spot check on the scalp. The patientwas last seen by [facility] in February 2024, although he was recently seen by an outside remote sensing advisor on 06/09/2024, at which time he had 14 actinic keratoses on the face treated with cryotherapy,with instructions to follow-up in 1-2 months to ensure the lesions have healed. He states he noticed the spot on his scalp over the last week. It is asymptomatic but is red and scaly, similar to previous precancerous lesions he has had. He otherwise has no lesions of concern, and states the previously frozen lesions have healed well. He will be in [place] for 3 more months prior to going to [place] for the winter. MEDICAL HISTORY 1. 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 Holman at [facility] 2. Negative for melanoma FAMILY HISTORY Negative for melanoma OBJECTIVE PHYSICAL EXAMINATION General: Awake, alert, in no acute distress, and with appropriate affect. Skin: A focused skin exam was performed of the face and scalp per patient request. On the frontal scalp, there is a erythematous gritty macule. On the nasal tip, there is a erythematous macule consistent with an angioma. ASSESSMENT / PLAN #History of nonmelanoma skin cancer #Dermatoheliosis No signs of recurrence today. Sun protection and sun avoidance were reviewed with the patient. I advised the patient to use SPF 30 or above. Educational materials were offered regarding skin self-examination, the warning signs and symptoms of skin cancer, and the proper use of sunscreens. I would recommend a full skin cancer screening examination with an appropriately trained clinician annually. #Actinic keratosis Lesion on scalp was consistent with an actinic keratosis, which we treated with cryotherapy. The lesions that were previously treated back in June have healed well with no signs of recurrence. We also refilled his prescription for Efudex, which he uses for 7-10 days at a time for any red scaly areas that develop on his face. CONSENT Discussed the risks, benefits, alternatives, and the necessity of other members of the healthcare team participating in the procedure. All questions answered and consent given. PROCEDURE INFORMATION Given the precancerous nature of this lesion(s), treatment is medically indicated. After discussionof the risks, benefits and alternatives to treatment with cryotherapy, informed consent was obtained. We treated a total of 1 lesion(s) with liquid nitrogen. The patient tolerated the procedure well. Aftercare instructions were provided in written and verbal form to the patient. Should any of theselesions recur, the patient should return for biopsy or further evaluation. PATIENT EDUCATION: Ready to learn. No apparent learning barriers were identified. Learning preferences include listening. Explained diagnosis and treatment plan; patient/guardian of patient expressed understanding of the content. Cosigned by Tanna Moss M.D. at 08/08/2024 5:52 PM CDT Associated attestation - Tanna Moss M.D. - 08/08/2024 5:52 PM CDT I saw and evaluated the [...] of this encounter Visit Diagnoses Diagnosis Keratosis Actinic- Primary Dermatoheliosis Personal History Of Other Malignant Neoplasm Of Skin documented in this encounter Care Teams White Metal Corrosion Proofer Relationship Specialty Start Date End Date Elsewhere, Pcp PCP - General Family Medicine 02/05/19 documented as of this encounter
--- OUTSIDE RECORDS SUMMARY | 2024-09-26 08:08 | XMS_ITS | Encounter Summary ---
Author Organization [facility] Address [address] [place] [address] Care Team Providers Care Home Restoration Service Supervisor Name Role Phone Elsewhere, Pcp Primary Care Provider Unavailabl e Reason for Visit * Reason Onset Date Comments Previsit Preparation 07/23/2024 Encounter Details Date Type Department Care Team (Latest Contact Info) Description 07/23/2024 7:45 AM CDT Clinical Communication Virtual Review in [place], [place] [address] [place] [address] Previsit Preparation Social History Tobacco Use Types Packs/Day Years [...] on filedocumented in this encounter Care Teams Home Restoration Service Supervisor Relationship Specialty Start Date End Date Elsewhere, Pcp PCP - General Family Medicine 02/05/19 documented as of this encounter
== END 2024-09-26 08:06 | disposition home or self-care (01) ==
PROVIDERS: PCP Family Medicine; Visit Provider Family Medicine
DX: M54.16 Radiculopathy, lumbar region (principal); M51.369 Other intervertebral disc degeneration, lumbar region without mention of lumbar back pain or lower extremity pain
CPT/HCPCS: 64483; J1100; Q9966

== ENCOUNTER 2025-02-24 11:21 | Emergency (ER) | payer MEDICARE, BC, SELFPAY ==
--- OUTSIDE RECORDS SUMMARY | 2025-02-24 11:24 | XMS_ITS | Clinical Summary ---
Author Organization [employer] [facility] Address [address] [place] [id number] Care Team Providers Care Hospice Spiritual Care Coordinator Name Role Phone Chelle Ramachandran Primary Care Provider [phone] Allergies Active Allergy Reactions Criticality Noted Date Comments Ezetimibe Rash,Myalgia Medium 02/22/2010 sporonex Zetia Itraconazole Rash Medium sporonox Melon Shortness Of Breath,Dyspnea Medium 03/29/2017 Melon Flavor 04/01/2009 Simvastatin Myalgia Medium 02/22/2010 Elevated blood glucose as well.Has tried all statins Spice Flavor Anaphylaxis 04/01/2009 pinto Medications Vit A,C,E-Zinc-Gamal er (ICAPS AREDS) [phone] cap Take 1 tablet by mouth 2 times daily. Active timolol maleate (TIMOPTIC) 0.5 % ophthalmic solution Place 1 Drop into right eye two times daily. 5 01/16/20 19 Active tamsulosin (FLOMAX) 0.4 mg capsuleIndicati ons:Benign prostatic hyperplasia with weak urinary stream Take 1 Capsule (0.4 mg) by mouth once daily after a meal. 90 Capsule 1 09/19/20 21 Active finasteride (PROSCAR) 5 mg tablet Take 5 mg by mouth once daily. 04/11/20 22 Active omeprazole (PRILOSEC) 40 mg Delayed-Release capsuleIndicati ons:Chronic GERD Take 1 Capsule (40 mg) by mouth once daily before a meal. 90 Capsule 4 03/07/20 24 Active traMADoL (ULTRAM) 50 mg tabletIndicatio ns:Lumbar radiculopathy,L umbar foraminal stenosis,Lumbar facet arthropathy Take 1 Tablet (50 mg) by mouth 3 times daily if needed for Pain. 24 Tablet 1 05/19/20 24 Active docosahexaenoic acid/epa (FISH OIL ORAL) Take by mouth. Activ e alirocumab (Praluent Pen) 150 mg/mL pnij Inject 150 mg subcutaneous every 2 weeks. 2 mL 5 09/08/20 24 Active omega-3 acid ethyl esters 1 gram capsuleIndicati ons:Hyperlipide june with target LDL less than 100 Take 2 Capsules (2 g) by mouth two times daily. 180 Capsule 3 02/04/20 25 Active celecoxib 200 mg capsuleIndicati ons:Lumbar facet arthropathy Take 1 Capsule (200 mg) by mouth two times daily with meals. 60 Capsule 2 02/07/20 25 Active aspirin (ECOTRIN) 81 mg enteric coated tablet Takes 1 tablet every other day 0 01/02/20 19 025 Discontin ued(*Namrata ent states no longer taking) Active Problems Problem Noted Date Diagnosed Date [...] Encounters Date Type Department Care Team Description 02/06/2025 11:00 AM CDT Office Visit [facility] [address] [place] [address] Gerardo Antoine MD Musculoskeletal Problem (Follow up back pain ) 02/06/2025 Travel 01/30/2025 2:00 PM CDT Office Visit [facility] [address] [place] [address] Jose E Fraire MD Follow Up (Follow up coronary artery disease ) 01/30/2025 Telephone [facility] [address] [address] Jose E Fraire MD Medication Problem (fish oil) 01/29/2025 8:30 AM CDT Orders Only [facility] [address] [place] [address] Lab, [facility] 01/29/2025 Travel 01/22/2025 Telephone [facility] [address] [address] Jose E Fraire MD Lab (Need orders) from Last 3 Months Immunizations Immunization Administration Dates Next Due COVID-19 vaccine (Moderna [...] is your housing situation today? 1 03/07/2024 Utilities Answer Date Recorded Do you have trouble paying f or utilities (for example, heat, electricity, water, phone)? 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 Gender Identity Not on file Sexual Orientation Not on file Occupation Industry Job Start Date Job End Date Retired Not on file Not on file Not on file Obstetrics History Last Filed Vital Signs Vital Sign Reading Time Taken Comments Blood Pressure 111/66 02/06/2025 10:59 AM CDT Pulse 71 02/06/2025 10:59 AM CDT Temperature 36.6 C (97.8 F) 02/06/2025 10:59 AM CDT Respiratory Rate 18 04/05/2024 9:52 AM CDT Oxygen Saturation 96% 02/06/2025 10: 59 AM CDT Inhaled Oxygen Concentration - - Weight 92.6 kg (204 lb 1.6 oz) 01/31/20 2:06 PM CDT Height 176.5 cm (5' 9.49) 03/07/2024 8 :33 AM CDT with shoes Body Mass Index 29.72 03/07/2024 8:33 AM CDT Plan of Treatment Upcoming Encounters Date Type Department Care Team (Late st Contact Info) Description 03/09/2025 9:50 AM CDT Office Visit [facility] [address] [place] [address] Chelle Ramachandran DO [address] [place] [address] Health Maintenance Due Date Last Done Comments Zoster (shingles) series for age 50+ (1 of 2) 1996 Tetanus booster 08/10/2018 08/10/2008 COVID-19 vaccine series ( season) 2025 08/25/2024, 10/08/2023, 06/29/2023, Additional history exists BMI (ht and wt on same day) for age 18+ 03/07/2025 03/07/2024, 02/06/2022, 03/10/2021, Additional history exists Depression screening for age 12+ 03/07/2025 03/07/2024, 03/02/2023, 02/09/2022, Additional history exists Medicare Wellness for age 65+ 03/08/2025, 03/02/2023, 02/06/2022, Additional history exists Influenza Vaccine (Season Ended) 2025 08/19/2020, 07/21/2020, 09/18/2019, Additional history exists Tdap Completed 08/10/2008 Pneumococcal series for age 50+ Completed 5, 04/02/2012 Hepatitis C screening for ag e 18-79 Completed 03/09/2023 RSV vaccine for adults or Completed 10/02/2023, 07/06/2023 Procedures Procedure Name Priority Date/Time Associated Diagnosis Comments LIPID PANEL W REFLEX MEASURED LDL Routine 01/29/2025 8:26 AM CDT 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 angina pectoris, unspecified vessel or lesion type, unspecified whether [place] or transplanted heart Hyperlipidemia LDL goal < 100 BASIC METABOLIC PANEL Routine 01/29/2025 8:26 AM CDT 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 angina pectoris, unspecified vessel or lesion type, unspecified whether [place] or transplanted heart Hyperlipidemia LDL goal < 100 HEMOGLOBIN A1C Routine 01/29/2025 8:26 AM CDT 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 angina pectoris, unspecified vessel or lesion type, unspecified whether [place] or transplanted heart Hyperlipidemia LDL goal < 100 Impaired fasting glucose LC HCV ANTIBODY RFX TO QUANT PCR Routine 03/09/2023 7:54 AM CDT Need for hepatitis C screening test from Last 3 Months or Most Recently Relevant to Health Maintenance Results * HEMOGLOBIN A1C (01/29/2025 8:26 AM CDT) HEMOGLOBIN A1C 5.1 <5.7 % of total Hgb [facility] Comment: For the purpose of screening for the presence of diabetes: <5.7% Consistent with the absence of diabetes 5.7-6.4% Consistent with increased risk for diabetes (prediabetes) > or =6.5% Consistent with diabetes This assay result is consistent with a decreased risk of diabetes. Currently, no consensus exists regarding use of hemoglobin A1c for diagnosis of diabetes in children. According to [place] Diabetes Association (ADA) guidelines, hemoglobin A1c <7.0% represents optimal control in non- diabetic patients. Different metrics may apply to specific patient populations. Standards of Medical Care in Diabetes(ADA). Blood BLOOD SPECIMEN / Unknown 01/29/2025 8:26 AM CDT 01/29/2025 8:26 AM CDT Jose E Fraire MD CHEMISTRY Final Resu lt [facility] [facility] [address] [place] [address], [place] [phone] [facility] [address] [place] [address] * (ABNORMAL) LIPID PANEL W REFLEX MEASURED LDL (01/29/2025 8:26 AM CDT) CHOLESTEROL, TOTAL 172 <200 mg/dL [facility] HDL CHOLESTEROL 49 > OR = 40 mg/dL [facility] TRIGLYCERIDES 101 <150 mg/dL [facility] LDL-CHOLESTEROL 104(H) mg/dL (calc) [facility] Comment: Reference range: <100 Desirable range <100 mg/dL for primary prevention; <70 mg/dL for patients with CHD or diabetic patients with > or = 2 CHD risk factors. LDL-C is now calculated using the Pawan-Andreas calculation, which is a validated novel method providing better accuracy than the Friedewald equation in the estimation of LDL-C. Pawan SS et al. JARRET. 2013;310(19): 5633-0885 (http://education.GameGround/faq/SLB394) CHOL/HDLC RATIO 3.5 <5.0 (calc) [facility] NON HDL CHOLESTEROL 123 <130 mg/dL (calc) [facility] Comment: For patients with diabetes plus 1 major ASCVD risk factor, treating to a non-HDL-C goal of <100 mg/dL (LDL-C of <70 mg/dL) is considered a therapeutic option. Blood BLOOD SPECIMEN / Unknown 01/29/2025 8:26 AM CDT 01/29/2025 8:26 AM CDT Jose E Fraire MD CHEMISTRY Final Resu lt [facility] [address] [place] [address], [place] [phone] [facility] [address] [place] [address] * (ABNORMAL) BASIC METABOLIC PANEL (01/29/2025 8:26 AM CDT) GLUCOSE 111(H) 65 - 99 mg/dL [employer] [facility] Comment: Fasting reference interval For someone without known diabetes, a glucose value between 100 and 125 mg/dL is consistent with prediabetes and should be confirmed with a follow-up test. UREA NITROGEN (BUN) 18 7 - 25 mg/dL [facility] CREATININE 1.27 0.70 - 1.28 mg/dL [facility] [employer] EGFR 58(L) > OR = 60 mL/min/1. 73m2 [facility] BUN/CREATININE RATIO SEE NOTE: 6 - 22 (calc) [facility] Comment: Not Reported: BUN and Creatinine are within reference range. SODIUM 140 135 - 146 mmol/L [facility] POTASSIUM 4.5 3.5 - 5.3 mmol/L [facility] CHLORIDE 107 98 - 110 mmol/L [facility] CARBON DIOXIDE 26 20 - 32 mmol/L [facility] ELECTROLYTE BALANCE 7 7 - 17 mmol/L (calc) [facility] CALCIUM 9.2 8.6 - 10.3 mg/dL [facility] Blood BLOOD SPECIMEN / Unknown 01/29/2025 8:26 AM CDT 01/29/2025 8:26 AM CDT us Jose E Fraire MD CHEMISTRY Final Resu lt [employer] [facility] [address] [place] [address], [place] [phone] [facility] [address] [place] [address] * LC HCV ANTIBODY RFX TO QUANT PCR (03/09/2023 7:54 AM CDT) HCV Ab Non Reactive Non Reactive 03/13/2023 1:10 PM CDT [facility] Blood BLOOD SPECIMEN / Unknown Venipuncture / Unknown 03/09/2023 7:54 AM CDT 03/09/2023 7:56 AM CDT Narrative [facility] - 03/13/2023 1:10 PM CDT Performed at: 01 - [facility] [address] [place] [id number] Apn: Eliezer Alfaro MD, Phone: [phone] us Chelle Ramachandran DO LABORATORY Final Resul t [facility] [address] [place] [address], from Last 3 Months or Most Recently Relevant to Health Maintenance Insurance MEDICARE PART B HB ONLY [employer] [id number] [employer] [place] [place] BLUE HB ONLY [place] [id number] MEDICARE PART A HB ONLY Advance Directives * Full Code (Latest Code [...] Comments Code Status Discussion: Discussed Care Teams Hospice Spiritual Care Coordinator Relationship Specialty Start Date End Date Chelle Ramachandran DO [address] [place] [address] PCP - General Family Practice 08/31/17
--- OUTSIDE RECORDS SUMMARY | 2025-02-24 11:24 | XMS_ITS | Data Portability ---
Author Organization [place] [facility] Address [address] [facility] [address] [place] [address] Assessment No assessment recorded. Plan of Treatment Reminders Order Date Submit Date Provider Last Modified By Organization Details Last Modified Time Details Appointments ESTABLISH ED 10 2024 01:50P Bisi Almanza MD Not available Not available Not available Lab urinalysi s, dipstick 2023 024 [facility], [facility], [address], [place], [address], 09/23/2024 10:55:15 urinalysi s, dipstick 2023 024 JOSE [facility], [address] [facility], [address], [place], [address], 02/13/2024 09:00:26 urinalysi s, dipstick 2022 023 [email or web address] [facility], [address] [facility], [address], [place], [address], 07/10/2023 10:40:52 Referral None recorded. Procedures bladder scan (PROC) 2023 024 [facility], [address] [facility], [address], [place], [address], 09/23/2024 10:55:15 bladder scan (PROC) 2023 024 [email or web address] [facility], [address], [address], [place], [address], 02/12/2024 11:43:28 bladder scan (PROC) 2022 023 [email or web address] [facility], [address], [address], [place], [address], 07/10/2023 10:40:52 Surgeries None recorded. Imaging None recorded. Medication Orders ciproflox acin 500 mg tablet 2023 024 JOSE [id number] [employer], [facility] 3 [place], [address], 09/23/2024 11:14:45 finasteri de 5 mg tablet 2023 024 JOSE [id number] [employer], [address] [facility] 3 [place], [address], 09/23/2024 11:16:57 cephalexi n 500 mg capsule 2023 024 [email or web address] [id number] [employer], [address] [facility] 3 [place], [address], 04/17/2024 10:44:51 Patient TargetsNo targets recorded. Patient Instructions Encounter Date Encounter Id Patient Instructions Last Modified By Organization Details Last Modified Time 02/27/2023 [id number] will set up for cystoscopy left retrograde and possible left ureteroscopy with laser/stent placement ALEKS discussed 8 minute phone visit. [email or web address] Not available 02/27/2023 12:09:27 07/10/2023 [id number] doing well and will plan rtc in the spring for PSA and med refills. [email or web address] Not available 07/10/2023 10:52:06 02/12/2024 [id number] continue current prostate meds and start keflex 10 days, plan rtc in July. [email or web address] Not available 02/12/2024 11:46:11 04/17/2024 [id number] will set up for another CT urogram and call with report. [email or web address] Not available 04/17/2024 11:02:30 09/23/2024 [id number] will send rx for cipro bid if gets flareup while in [place]. plan rtc 6 months. [email or web address] Not available 09/23/2024 11:15:34 Reason for Referral None Reported. Results Created Date Observation Date Name Description Value Unit Range Abnormal Flag Note LastModifiedBy Organization Detail LastModifiedTime 07/10/2007/10/2023 urina lysis , dipst ick pH-Status 5.5 Not Available [address] [place], [place], [address], 07/10/2023 10:31:06 07/10/20 23 07/10/2023 bladd er scan (PROC ) Volume (in mL) 64ml Not Available [address], [place], [address], 07/10/2023 10:31:08 02/12/20 24 02/12/2024 bladd er scan (PROC ) Volume (in mL) 85ml Not Available [address], [place], [address], 02/12/2024 11:28:40 02/13/20 24 02/13/2024 urina lysis , dipst ick Color-Status Yellow Not Available [address], [place], [address], 02/12/2024 11:43:24 02/13/20 24 02/13/2024 urina lysis , dipst ick Clarity-Stat us Clear Not Available [address], [place], [address], 02/12/2024 11:43:24 02/13/20 24 02/13/2024 urina lysis , dipst ick Specimen Type Voided Not Available [address], [place], [address], 02/12/2024 11:43:24 02/13/20 24 02/13/2024 urina lysis , dipst ick Leuko-Status Negati ve Not Available [address], [place], [address], 02/12/2024 11:43:24 02/13/20 24 02/13/2024 urina lysis , dipst ick Blood-Status Negati ve Not Available [address], [place], [address], 02/12/2024 11:43:24 02/13/20 24 02/13/2024 urina lysis , dipst ick Nitrates-Sta tus negati ve Not Available [address], [place], [address], 02/12/2024 11:43:24 02/13/20 24 02/13/2024 urina lysis , dipst ick pH-Status 6.0 Not Available [address], [place], [address], 02/12/2024 11:43:24 02/13/20 24 02/13/2024 urina lysis , dipst ick Sp [place]-Stat us 1.025 Not Available [address], [place], [address], 02/12/2024 11:43:24 02/13/20 24 02/13/2024 urina lysis , dipst ick Ketones-Stat us Not Available [address], [place], [address], 02/12/2024 11:43:24 09/23/20 24 09/23/2024 urina lysis , dipst ick Color-Status Yellow Not Available [address], [place], [address], 09/17/2024 10:22:36 09/23/20 24 09/23/2024 urina lysis , dipst ick Clarity-Stat us Clear Not Available [address], [place], [address], 09/17/2024 10:22:36 09/23/20 24 09/23/2024 urina lysis , dipst ick Sp [place]-Stat us 1.025 Not Available [address], [place], [address], 09/17/2024 10:22:36 09/23/20 24 09/23/2024 urina lysis , dipst ick pH-Status 5.5 Not Available [address], [place], [address], 09/17/2024 10:22:36 09/23/20 24 09/23/2024 urina lysis , dipst ick Nitrates-Sta tus negati ve Not Available [address], [place], [address], 09/17/2024 10:22:36 09/23/20 24 09/23/2024 urina lysis , dipst ick Blood-Status Negati ve Not Available [place] [address] [facility] [address], [place], [address], 09/17/2024 10:22:36 09/23/20 24 09/23/2024 urina lysis , dipst ick Leuko-Status Negati ve Not Available [place] [address] [facility] [address], [place], [address], 09/17/2024 10:22:36 09/23/20 24 09/23/2024 urina lysis , dipst ick Specimen Type Voided Not Available [address], [place], [address], 09/17/2024 10:22:36 09/23/20 24 09/23/2024 bladd er scan (PROC ) Volume (in mL) 30 Not Available [place] [address] [facility] [address], [place], [address], 09/17/2024 10:22:41 02/09/20 23 02/07/2023 CT, urogr am No observ ation record ed. [facility] [address] [place], [address], 02/28/2023 16:42:28 04/19/20 23 04/19/2023 XR, kidne y + urete r + bladd er No observ ation record ed. [email or web address] [facility] [address] [facility] [place], [address], 04/20/2023 09:17:27 02/14/20 24 02/12/2024 bladd er scan (PROC ) No observ ation record ed. BARCODE Not Available 2023 15:12:07 05/07/20 24 05/06/2024 CT, urogr am No observ ation record ed. JOSE [facility] [address], [place], [address], 05/13/2024 15:55:40 Result Notes None recorded. Problems Name Problem SNOMED Code Status Onset Date Resolution Date Notes Provider Name and Address Organization Details Recorded Time Lower urinary tract symptoms due to benign prostatic hypertrophy 8883591334599 1 Active 2022 Jerry Almanza MD [address] [place] [address],[address], [place], [address], [facility] 3 12:18:40 Hydronephro sis 70656497 Active 2023 Jerry Almanza MD [address] [place] [address],[address], [place], [address], [facility] 4 11:02:11 Problem Notes None recorded. Procedures Surgical History Date Name Laterality Status Provider Name and Address Organization Details Recorded Time 5 Bladder Scan active Alexandra Rendon [facility] 02/20/2025 16:14:38 4 Bladder Scan completed Alexandra Jack [facility] 09/23/2024 10:52:18 4 Bladder Scan completed Jerry Almanza MD [address] [place] [address],[address] [place] [address], [address], [facility] 02/12/2024 11:28:36 3 Bladder Scan completed Gregg Godinez [facility] 07/10/2023 10:39:00 3 Bladder Scan completed Jerry Almanza MD [address] [place] [address],SUITE [facility], [place], [address], [facility] 01/23/2023 12:05:08 2 Bladder Scan completed Jerry Almanza MD [address] [place] [address],[address] [place] [address], [address], [facility] 04/11/2022 11:55:29 procedure on back completed Jerry Almanza MD [address] [place] [address],[address], [address], [facility] 04/11/2022 11:53:44 total replacement of hip completed Jerry Almanza MD [address] [facility],[address], [place], [address], [facility] 04/11/2022 11:54:04 Vasectomy completed Jerry Almanza MD [address] [facility],[address], [place], [address], [facility] 04/11/2022 11:54:11 Imaging Results Imaging Date Name Status LastModified by Organiz ation Details LastModified Time 02/07/2023 CT, urogram completed [facility] [address] [place], [address], 02/28/2023 16:42:28 04/19/2023 XR, kidney + ureter + bladder completed [address] [place], [address], 04/20/2023 09:17:27 02/12/2024 bladder scan (PROC) completed BARCODE Information not available 02/14/2024 15:12:07 05/06/2024 CT, urogram completed JOSE [facility] [address] [facility], [place], [address], 05/13/2024 15:55:40 Procedure Notes None recorded. Medical Equipment None Reported. Allergies Allergen ID Allergen Name Allergen Category Reaction Reaction Severity Criticality Documentation Date Start Date Code Code System Note Provider Name and Address Organization Details Recorded Time 286504 Sporanox medicatio n Not available Not available Not available 04/11/202264715 6 RxNorm Not Available Not Available Not Available 612563 melon extract food Not available Not available Not available 04/11/2022 02634 10 RxNorm Not Available Not Available Not Available 269570 Product containin g 3-hydroxy -3-methyl glutaryl- coenzyme A reductase inhibitor (product) medicatio n Not available Not available Not available 04/11/2022 99365 009 SNOMED Not Available Not Available Not Available Medications Name Sig Start Date Stop Date [...] t Available ciprofloxac in 500 mg tablet TAKE 1 TABLET BY MOUTH TWICE A DAY FOR 20 DAYS active Not Available Not Available No [...] BY MOUTH EVERY DAY IN THE EVENING. 2024 active Not Available Not Available Not Avai lable phenazopyri dine 100 mg tablet TAKE 1 [...] Updated DateTime 02/27/2023 177.8 cm 27.3 kg/m2 35999.55 g Gregg Godinez [facility] 02/27/2023 10:59:27 Date Recorded Body height Body mass index (BMI) Body weight Provider Name and Address Organization Details Last Updated DateTime 07/10/2023 177.8 cm 27.3 kg/m2 62478.55 g Gregg Godinez [facility] 07/10/2023 10:30:30 Date Recorded Body height Body mass index (BMI) Body weight Provider Name and Address Organization Details Last Updated DateTime 02/12/2024 177.8 cm 27.3 kg/m2 00747.55 g Jerry Almanza MD [address] [place] [address],[address] [place] [address] 02/12/2024 11:30:14 Date Recorded Body height Body mass index (BMI) Body weight Provider Name and Address Organization Details Last Updated DateTime 04/17/2024 177.8 cm 27.3 kg/m2 85880.55 g Jerry Almanza MD [address] [facility] [address] [address] [place] [address] 04/17/2024 10:44:43 Date Recorded Body height Body mass index (BMI) Body weight Provider Name and Address Organization Details Last Updated DateTime 09/23/2024 177.8 cm 27.3 kg/m2 88140.55 g Alexandra Jack [facility] 09/23/2024 10:52:42 Social History Question Answer Notes LastModified by Organizat ion Details LastModified Time Tobacco Smoking Status Former Smoker Jerry Almanza MD [address] [place] [address],[address], [address] [place] [address] 04/11/2022 11:53:29 What Is Your Level Of Alcohol Consumption? Moderate [email or web address] Information not available 04/11/2022 What Is Your Level Of Caffeine Consumption? Moderate [email or web address] Information not available 04/11/2022 When Did You Quit Smoking? 16+yearssince lastcigarette [email or web address] Information not available 04/11/2022 What Was The [...] Time Father Family history of cardiac disorder [email or web address] Not available 04/11 11:53:13 Medical History Condition Response Diabetes N Sexually Transmitted Infection N Bleeding Disorder N Other N High Blood Pressure N Kidney Stones N Cancer N Depression N Lung Disease N High Cholesterol Y GERD/Acid Reflux N Heart Disease N Immunizations Vaccine Type Date Status Note Provider Nam e and Address Organization Details Recorded Time Influenza, high-dose, quadrivalent, PF 1 completed Alexandra goodwin [facility] 09/23/2024 10:52:52 COVID-19, mRNA, LNP-S, PF, 100 mcg/0.5mL dose or 50 mcg/0.25mL dose 1 completed Alexandra goodwin [facility] 09/23/2024 10:52:52 COVID-19, mRNA, LNP-S, PF, 100 mcg/0.5mL dose or 50 mcg/0.25mL dose 1 completed Alexandra goodwin [facility] 09/23/2024 10:52:52 COVID-19, mRNA, LNP-S, PF, 100 mcg/0.5mL dose or 50 mcg/0.25mL dose 2 completed Dezera Sieracki null, [facility] 09/23/2024 10:52:52 COVID-19, mRNA, LNP-S, PF, 100 mcg/0.5mL dose or 50 mcg/0.25mL dose 1 completed Dezera Sieracki null, [facility] 09/23/2024 10:52:52 pneumococcal polysaccharide PPV23 2 completed Dezera Sieracki null, [facility] 09/23/2024 10:52:52 Tdap 8 completed Dezera Sieracki null, [facility] 09/23/2024 10:52:52 Novel [id number]-[id number], all formulations 9 completed Dezera Sieracki null, [facility] 09/23/2024 10:52:52 Pneumococcal conjugate PCV 13 5 completed Dezera Sieracki null, [facility] 09/23/2024 10:52:52 Influenza, high-dose, trivalent, PF 0 completed Dezera Sieracki null, [facility] 09/23/2024 10:52:52 Influenza, high-dose, trivalent, PF 0 completed Dezera Sieracki null, [facility] 09/23/2024 10:52:52 Influenza, high-dose, trivalent, PF 6 completed [facility] Sieracki null, [facility] 09/23/2024 10:52:52 Influenza, high-dose, trivalent, PF 7 completed Dezera Sieracki null, [facility] 09/23/2024 10:52:52 Influenza, high-dose, trivalent, PF 4 completed Dezera Sieracki null, [facility] 09/23/2024 10:52:52 Influenza, high-dose, trivalent, PF 8 completed Dezera Sieracki null, [facility] 09/23/2024 10:52:52 Influenza, split virus, trivalent, preservative 7 completed Dezera Sieracki null, [facility] 09/23/2024 10:52:52 Influenza, split virus, trivalent, preservative 6 completed Dezera Sieracki null, [facility] 09/23/2024 10:52:52 Influenza, split virus, trivalent, PF 9 completed Dezera Sieracki null, [facility] 09/23/2024 10:52:52 Influenza, split virus, trivalent, PF 1 completed Dezera Sieracki null, [facility] 09/23/2024 10:52:53 Influenza, split virus, trivalent, PF 2 completed Dezera Sieracki null, [facility] 09/23/2024 10:52:53 Influenza, split virus, trivalent, PF 0 completed Dezera Sieracki null, [facility] 09/23/2024 10:52:53 Hep A, adult 5 completed Dezera Sieracki null, [facility] 09/23/2024 10:52:53 Hep A, pediatric, unspecified formulation 5 completed Dezera Sieracki null, [facility] 09/23/2024 10:52:53 Influenza, split virus, quadrivalent, PF 9 completed Dezera Sieracki null, [facility] 09/23/2024 10:52:53 Past Encounters Encounter ID Performer Location Encounter Start Date Encounter Closed Date Diagnosis/Indication Diagnosis SNOMED-CT Code Diagnosis ICD10 Code Diagnosis Note [id number] Jerry Almanza MD [facility] [address] [place] [address] 04/11/2022 11:38:10 04/19/2022 16:24:59 Urgent desire to urinate 00083895 R39.15 Lower urin monster tract symptoms due to benign prostatic hypertrophy 1345569084 9101 N40.1 [id number] Jerry Almanza MD [address] [place] [address] 01/23/2023 11:18:41 01/26/2023 09:29:51 Urinary tract infectious disease 33034088 N39.0 Lower urin monster tract symptoms due to benign prostatic hypertrophy 0624480840 9101 N40.1 [id number] Jerry Almanza MD [address] [place] [address] 02/27/2023 10:58:22 03/02/2023 09:35:07 Lower urinary tract symptoms due to benign prostatic hypertrophy 0694099359 9101 N40.1 abnormal distal left ureter on CT. [id number] Jerry Almanza MD [address] [place] [address] 07/10/2023 10:21:05 07/16/2023 19:10:05 Lower urinary tract symptoms due to benign prostatic hypertrophy 6408235619 9101 N40.1 abnormal distal left ureter on CT. normal retrograde with J-hooking. [id number] Jerry Almanza MD [address] [place] [address] 02/12/2024 11:04:41 02/12/2024 15:49:27 Lower urinary tract symptoms due to benign prostatic hypertrophy 5871457554 9101 N40.1 abnormal distal left ureter on CT. normal retrograde with J-hooking. [id number] Jerry Almanza MD [address] [place] [address] 04/17/2024 10:27:47 04/25/2024 16:54:39 Hydronephrosis 15263960 N13.30 [id number] Alexandra Garciakrishan [address] [place] [address] 09/23/2024 10:34:08 09/24/2024 10:30:38 Hydronephrosis 10364579 N13.30 Lower urin monster tract symptoms due to benign prostatic hypertrophy 1869028073 9101 N40.1 abnormal distal left ureter on CT. normal retrograde with J-hooking. Health Concerns Section Related Observation LastModified by Organization Detai ls LastModified Time None Recorded Concern Status LastModified by Organization Details LastModified Time None Recorded Advance Directives Directive None Recorded Payers Encounter Date Sequence Insurance Name Policy Number Policy Colindres Covered Member ID Colindres Member ID Guarantor Name 02/27/2023 1 [place] [id number] Barrie Jasonosinski [id number] Barrie Beverly Klosinski 07/10/2023 1 [place] [id number] Barrie Jasonosinski [id number] Barrie Beverly Klosinski 02/12/2024 1 [place] [id number] Barrie Jasonosinski [id number] Barrie Beverly Klosinski 04/17/2024 1 [place] [id number] Barrie Jasonosinski [id number] Barrie Beverly Klosinski 09/23/2024 1 [place] [id number] Barrie Jasonosinski [id number] Barrie Segovi[place]i Notes Date Note Type Note Provider Name [...] care. call to follow up [facility] done [facility]. showed findings similar to CT from [place] with prominent but not obstructed left distal ureter. Jerry Almanza MD [address] [place] [address],[address], [place], [address], [facility] 02/27/2023 12:11:02 07/10/2023 text/html here for UA and PVR today. taking finasteride and 2 tamsulosin per day/ UA clear and PVR 62ml today. going to [facility] in October. voiding well. Jerry Almanza MD [address] [place] [address],[address], [place], [address], [facility] 07/10/2023 10:53:22 02/12/2024 text/html Patient is [...] tightness of suprapubic area. Jerry Almanza MD [address] [place] [address],[address], [place], [address], [facility] 02/12/2024 11:46:53 04/17/2024 text/html Patient is here for Hydronephrosis. 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 Jerry Almanza MD [address] [facility],[address], [place], [address], [facility] 04/17/2024 11:07:08 09/23/2024 text/html follow up BPH/UT I sx's. taking finasteride and 2 tamsulosin per day. had another bout of sx's with hematuria, UC negative but got better with cipro. PSA last week was 2.88, UA clear and PVR 30ml today. Alexandra goodwin [facility] 09/23/2024 11:17:13
--- OUTSIDE RECORDS SUMMARY | 2025-02-24 11:24 | XMS_ITS | Encounter Summary ---
Author Organization [facility] Address [address] [place] [address] Care Team Providers Care Residence Supervisor Name Role Phone Elsewhere, Pcp Primary Care Provider Unavailabl e Encounter Details Date Type Department Care Team (Late st Contact Info) Description 02/03/2025 4:20 PM CDT Ancillary Procedure Department of Dermatology Social History Tobacco Use Types Packs/Day Years [...] Care Team (Late st Contact Info) Description 03/17/2025 8:00 AM CDT Office Visit Department of Dermatology in [address] [phone] Estuardo Montanez M.D. [address] [place] [address] Discharge Disposition: Home or Self Care documented as of this encounter Procedures Procedure Name Priority Date/Time Associated Diagnosis Comments DERMATOLOGY IMAGE EXAM Routine 02/03/2025 4:20 PM CDT documented in this encounter Results * hand, right ventral thumb 344-Dermatology Image Exam (02/03/2025 4:20 PM CDT) 02/03/2025 4:18 PM CDT Narrative [facility] - 02/03/2025 4:20 PM CDT This order has been created and auto-finalized to support the import of images acquired without order. The clinical documentation to support these images can be found on the encounter that produced images. us Provider Not In System IMG NON RAD IMAGING PROCE DURES Final Result [facility] NA documented in this encounter Visit Diagnoses Not on filedocumented in this encounter Care Teams Residence Supervisor Relationship Specialty Start Date End Date Elsewhere, Pcp PCP - General Family Medicine 02/05/19 documented as of this encounter
--- OUTSIDE RECORDS SUMMARY | 2025-02-24 11:24 | XMS_ITS | Encounter Summary ---
Author Organization [facility] Address [address] [place] [id number] Care Team Providers Care Aquatic Facility Manager Name Role Phone Elsewhere, Pcp Primary Care Provider Unavailabl e Reason for Referral * Outpatient (Routine) - Authorized Specialty Diagnoses / Procedures Referred By Carl lovell Referred To Contact Dermatology Estuardo Montanez M.D. [address] [place] [address] Phone: tel: fax: [facility] Region Referral ID Status Reason Start Date Expiration Date V isits Requested Visits Authorized [id number] Authorized 02/03/2025 08/05/2026 1 1 Scheduling Instructions Recheck right thumb lesion and probable biopsy March 17, 8-830 am. 30 mins Reason for Visit * Reason Comments Skin Check Waist up only * Appointment Request (Routine) - Closed Specialty Diagnoses / Procedures Referred By Carl lovell Referred To Contact Dermatology Referral ID Status Reason Start Date Expiration Date Visits Re quested Visits Authorized [id number] Closed 10/08/2024 10/08/2025 1 1 Encounter Details Date Type Department Care Team (Late st Contact Info) Description 02/03/2025 4:00 PM CDT Office Visit Department of Dermatology in [address] [phone] Estuardo Montanez M.D. [address] [place] [id number] Callus (Primary Dx); Nevi Multiple; Keratosis Seborrheic Discharge Disposition: Home or Self Care Social [...] on file documented as of this encounter Consult Notes * Estuardo Montanez M.D. - 02/03/2025 4:00 PM CDT REFERRED BY No ref. provider found CHIEF COMPLAINT/REASON FOR VISIT History of nonmelanoma skin cancer History of atypical nevus HISTORY OF PRESENT ILLNESS Mr. Barrie Dinh is a pleasant 79 y.o. male who presents today for a waist- up skin cancer screening examination. 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 Family history is negative for melanoma. The last time I evaluated Mr. Dinh was on 06/09/2024, at which time I performed a full-body skin cancer screening examination. I treated a total of 14 actinic keratoses on the right cheek, rightposterior jawline, forehead, left mid lateral nasal bridge and left upper medial cheek, 2 lichenoidkeratoses on the right posterior forearm and abdomen, and an irritated verrucal keratosis on the left lateral base of neck with liquid nitrogen cryotherapy. All remaining skin findings were benign innature and required no treatment. He was seen in [facility] on 07/24/2024, by Dr. Boyle (supervised by Dr. Moss), at which time a focused skin exam was performed of the face and scalp per patient request. An actinic keratosis on the frontal scalp was treated with liquid nitrogen cryotherapy. He has also been given a prescription for Efudex previously, which he uses for 7-10 days at a time for any red scaly areas that develop on his face. Today, he reports a right thumb lesion that he thinks is getting larger and he uses mosquito forceps and a nail clipper to debride the lesion. He would like this treated. Allergies Allergen Reactions Ezetimibe Myalgia Itraconazole Rash sporonox Melon Shortness of breath (Reselect Reaction) Simvastatin Myalgia Elevated blood glucose as well.Has tried all statins Spice Flavor Anaphylaxis pinto PAST DERMATOLOGIC HISTORY Right upper medial cheek: Squamous cell carcinoma in situ, 12/06/2020, status post Mohs, 12/31/2020, by Dr. Holman at [facility] Left malar cheek, lower: Compound melanocytic nevus with severe atypia versus recurrent nevus and scar, biopsied 03/13/2023 FAMILY DERMATOLOGIC HISTORY Negative for melanoma PHYSICAL EXAM General: Awake, alert, in no acute distress, and with appropriate affect. Eyes: No scleral injection or icterus. No eyelid abnormalities. Skin: I have examined the scalp, face, neck, chest, abdomen, back, and bilateral upper extremities (waist-up only) per patient's request. Examination of the spot of concern on the right base of thumb is a light beige callus-like scarred area measuring 6 mm x 4.5 mm. On the areas inferior and posterior to the ears are small benign seborrheic keratoses, and on the left ear helix is a seborrheic keratosis. Examination of the face, ears, trunk and extremities reveals multiple benign- appearing nevi, lentigines and seborrheic keratoses. Examination of the left medial lower malar cheek reveals a small scar with no evidence for repigmentation or recurrence of the previously biopsied nevus. Examination of the right upper medial cheek reveals no evidence for recurrence of squamous cell carcinoma in situ. There is a purple, compressible papule on the right lower lateral lip border compatible with a venous june Examination today reveals no suspicious lesions for skin cancer. IMPRESSION/REPORT/PLAN #1 Right upper medial cheek: History of squamous cell carcinoma in situ, status post Mohs surgery on 12/31/[address] Holman at [facility], no recurrence No clinical evidence of local recurrence today. Recommended monthly self-skin examinations to evaluate for new, changing, symptomatic, or otherwise worrisome lesions. Signs and symptoms of skin cancer discussed. Photoprotection was recommended. Return to Dermatology in 12 months for a full skin exam or immediately if any new or changing lesions are noted. #2 Left malar cheek, lower: Compound melanocytic nevus with severe atypia versus atypical recurrentnevus and scar, biopsied 03/13/2023 No clinical evidence of local recurrence today. Recommended monthly self-skin examinations to evaluate for new, changing, symptomatic, or otherwise worrisome lesions. Signs and symptoms of skin cancer discussed. Photoprotection was recommended. Return to Dermatology in 6 months for a full skin examor immediately if any new or changing lesions are noted. #3 Face, trunk and extremities: Multiple nevi and lentigines The ABCDE criteria for melanoma was reviewed with the patient. None of the patient's nevi reach theclinical threshold for biopsy. I recommend continued sun protection, self-skin examinations, and observation. Should any of the patient's nevi change in size, color, texture, or shape or develop symptoms such as itching or bleeding, I recommend an immediate return visit for reassessment. #4 Face, ears, trunk and extremities: Seborrheic keratoses The benign nature of the skin lesion(s) was discussed with the patient. No treatment is required. Irecommend continued observation. Should this lesion change in size, color, texture, or shape or develop symptoms such as itching or bleeding, I recommend an immediate return visit for reassessment. #5 Right ventral base of thumb: Callus and scar tissue We discussed that this appears benign in nature. The patient is self-treating it with clipping, andit returns in 2-3 days. He has tried lactic acid creams with no results. Recommended he not manipulate the lesion in the interim, and return in 2-4 weeks for a shave biopsy, March 17, 2025, 8:00 a.m.. Photograph was taken today. #6 Right lower lateral lip border: Venous june The benign nature of the skin lesion(s) was discussed with the patient. No treatment is required. Irecommend continued observation. Should symptoms or changes develop related to this condition, I would recommend a return visit for reassessment. PATIENT EDUCATION Ready to learn. No apparent learning barriers were identified. Learning preferences include listening. Explained diagnosis and treatment plan; patient/guardian of patient expressed understanding of the content. This document serves as a record of services personally performed by Dr. Montanez. It was created ontheir behalf by Cassie Lozada, a trained medical biller/coder. The creation of this record is based on the scribe remotely listening to the visit and the provider's statements to them. This document has beenchecked and approved by the attending provider. Scribed for Estuardo Montanez M.D. by Cassie Lozada, on 02/03/2025, 11:47 AM CDT. documented in this encounter Plan of Treatment Upcoming Encounters Date Type Department Care Team (Late st Contact Info) Description 03/17/2025 8:00 AM CDT Office Visit Department of Dermatology in [address] [phone] Estuardo Montanez M.D. [address] [place] [phone] Discharge Disposition: Home or Self Care Scheduled Referrals Name Type Priority Associated Diagnoses Order Schedule Dermatology office visit (clinic) Outpatient Referral Routine Expected: 03/17/2025 (Approximate), Expires: 05/05/2026 documented as of this encounter Visit Diagnoses Diagnosis Callus- Primary Nevi Multiple Keratosis Seborrheic documented in this encounter Care Teams Aquatic Facility Manager Relationship Specialty Start Date End Date Elsewhere, Pcp PCP - General Family Medicine 02/05/19 documented as of this encounter
--- OUTSIDE RECORDS SUMMARY | 2025-02-24 11:25 | XMS_ITS | Clinical Summary ---
Author Organization [facility] Address [address] [place] [address] Care Team Providers Care Photoengraving Helper Name Role Phone Elsewhere, Pcp Primary Care Provider Unavailabl e Source Comments Patient records contain information from all sites at [facility]. For routine questions regarding patient records, call [phone] during business hours, M-F 8:00 AM - 5:00 PM Central Time. Record requests for emergency care only can be directed to [phone] at any time.[facility] Allergies Active Allergy Reactions Criticality Noted Date [...] and scalp. 40 g 3 4 Active Praluent Pen 150 mg/mL injection Inject 150 mg under the skin over 336 hr. 4 Active omega-3 acid ethyl esters (Lovaza) 1 gram capsule Take 2 g by mouth. 5 Active Encounters Date Type Department Care Team Description 02/03/2025 4:20 PM CDT Ancillary Procedure Department of Dermatology 02/03/2025 4:00 PM CDT Office Visit Department of Dermatology in [address] [phone] Estuardo Montanez M.D. Callus (Primary Dx); Nevi Multiple; Keratosis Seborrheic Discharge Disposition: Home or Self Care from [...] Comments Blood Pressure 160/88 12/31/2020 11:00 AM SHORT ORDER COOK Pulse 73 12/31/2020 11:00 AM SHORT ORDER COOK Temperature - - Respiratory Rate - - Oxygen Saturation - - Inhaled Oxygen Concentration - - Weight - - Height - - Body Mass Index - - Plan of Treatment Upcoming Encounters Date Type Department Care Team (Late st Contact Info) Description 03/17/2025 8:00 AM CDT Office Visit Department of Dermatology in [address] [phone] Estuardo Montanez M.D. [address] [place] [address] Discharge Disposition: Home or Self Care Health Maintenance Due Date Last Done Comments Hepatitis C Screening 1945 Zoster Vaccines (1 of 2) 1996 DTaP,Tdap,and Td Vaccines (2 - Td or Tdap) 08/10/2018 08/10/2008 Depression Screening (Annual PHQ-2) 11/05/2024 Fall Risk Screen (Annual) 11/05/2024 COVID-19 Vaccine ( season) 2025 08/25/2024, 10/08/2023, 06/29/2023, Additional history exists Pneumococcal vaccine (50+ years) Completed 10/21/2015, 04/02/2012 RSV vaccine - (32-36 weeks) or 60+ years Completed 10/02/2023, 07/06/2023 Influenza Vaccine Completed 08/29/2024, , 08/17/2021, Additional history exists IPV Vaccines Aged Out No longer eligi ble based on patient's age to complete this topic Medical Devices Implanted Type Area Pay Station Attendant Device Identifier Shelf Expiration Date Model / Serial / Lot Hip Implant- [id number] Implanted:02/03 (Quantity not on file) Hip Implant Left: Hip Procedures Procedure Name Priority Date/Time Associated Diagnosis Comments DERMATOLOGY IMAGE EXAM Routine 02/03/2025 4:20 PM CDT from Last 3 Months Results * hand, right ventral thumb 344-Dermatology [...] IMAGING PROCE DURES Final Result IIMS NA from Last 3 Months Insurance [facility] MEDICARE Care Teams Photoengraving Helper Relationship Specialty Start Date End Date Elsewhere, Pcp PCP - General Family Medicine 02/05/19
[2025-02-24 11:46] VITALS: BP 160/74; PULSE 78; RESP 18; TEMP 37.1; O2SAT 97; BMI 28.7
--- NOTE | 2025-02-24 12:25 | ED_ITS ---
HPI - General Adult General Date Seen: 02/24/25 Chief complaint: Back Injury/Pain Stated complaint: severe back pain Time Seen by Provider: 02/24/25 12:17 History of Present Illness HPI narrative: 79-year-old male presenting to the ER today for low back pain. He says he does have history history of some chronic back pain but this particular episode of pain started last week when he was golfing. It had been getting better but the pain is now coming and going frequently and is having trouble moving around due to the pain. Per medical record he did have an epidural steroid injection on the left L3-4 level last September by Dr. Antoine. Per medical records from [facility] he has a history of coronary disease, hyperlipidemia, GERD, degenerative disc disease in his cervical spine, lumbar intervertebral disc disease. Current med list includes celecoxib, tramadol. He reports that he had tried Celebrex the found to be in affected eye. The with Benadryl a past but is not currently on it. He is also on Flomax, omeprazole, [place] 3, Praluent injection the lower, clear multi vitamin. He reports that he had has had trouble with his low back off and on for the past several years. He did have 1 previous surgery on his back several years ago. He has had a few previous steroid injections. Last week he was golfing and when he was swinging his club he felt a sharp twinge of pain in his back. He was able to walk that day but. The rest of his round of golf. He felt like his back is getting better but yesterday had some bad pain radiating across the upper lumbar spine going to with lateral-sided his right hip. It got worse but then got better after a couple of hours. He had recurrence of pain this morning and he had so much difficulty with pain at when he was trying to take his morning shower that he had to crawl on his hands and knees to get out of the shower and bathroom. Also today he has new numbness radiating down the right anterolateral thigh and pain radiating down the right hip to the right thigh. No weakness in his legs. Bowel and bladder function have been normal. No fever or chills. No recent weight loss. No history of malignancy. He has no history of recent trauma or fall. Related Data Home Medications ?Medication ?Instructions ?Recorded ?Confirmed alirocumab 150 mg/mL subcutaneous 150 mg subcut Q2W 02/24/25 02/24/25 pen injector (Praluent Pen) finasteride 5 mg tablet 5 mg PO DAILY 02/24/25 02/24/25 fluorouracil 5 % topical cream applic topical 02/24/25 omeprazole 40 mg capsule,delayed 40 mg PO DAILY 02/24/25 02/24/25 release tamsulosin 0.4 mg capsule 0.8 mg PO QPM 02/24/25 02/24/25 timolol maleate 0.5 % eye drops 1 drp ophthalmic (eye) QAM 02/24/25 02/24/25 tramadol 50 mg tablet 50 mg PO 3XD PRN pain 02/24/25 02/24/25 Previous Rx's ?Medication ?Instructions ?Recorded diazepam 5 mg tablet (Valium) 5 mg PO BID PRN #14 tabs 02/24/25 ondansetron 4 mg disintegrating 4 mg PO Q8H PRN nausea and 02/24/25 tablet vomiting #10 tabs oxycodone 5 mg capsule 5 mg PO Q6H PRN pain #15 caps 02/24/25 Allergies Allergy/AdvReac Type Severity Reaction Status Date / Time itraconazole (From Sporanox) Allergy Severe Verified 02/24/25 11:54 melon Allergy Severe Verified 02/24/25 11:54 PFSH PFSH Social History Smoking Status: Former smoker How many standard drinks containing alcohol do you have on a typical day: 1 or 2 AUDIT-C Alcohol total score: 0 Non-prescribed substance use: denies use Exam Narrative: Exam Narrative: Constitutional: Appears well-developed and well-nourished. Alert. Conversant but very uncomfortable when he tries to sit up for exam. Overall, polite and Non toxic. HENT: Head: Atraumatic. Nose: Nose normal. Mouth/Throat: Oral mucosa is clear and moist. no trismus. Eyes: Conjunctivae normal. EOM normal. Pupils equal, round, and reactive to light. No scleral icterus. Neck: Normal range of motion. Neck supple. No tracheal deviation present. Cardiovascular: Normal rate, regular rhythm. No gallop. No friction rub. No murmur heard. Symmetric radial artery pulses Pulmonary/Chest: Effort normal. No stridor. No respiratory distress. No wheezes. No rales. No rhonchi . No tenderness. Abdominal: Soft. No distension. No mass. No tenderness. No rebound. No guarding. No pulsatile mass. Musculoskeletal: Marked tenderness across the right lumbar paraspinous muscles and including the midline. No midline step-off. No visible bruising or rash. Pelvis is stable. RUE: Normal range of motion. No tenderness. No deformity LUE: Normal range of motion. No tenderness. No deformity RLE: Normal range of motion. No edema. No tenderness. No deformity LLE: Normal range of motion. No edema. No tenderness. No deformity Neurological: Alert and oriented to person, place, and time. Normal strength. CN II-VII intact. No sensory deficit. GCS eye subscore is 4. GCS verbal subscore is 5. GCS motor subscore is 6. Normal coordination Sensory: Normal light touch sensation bilaterally on the anteromedial thigh (L3), medial malleolus (L4), dorsal first web space (L5), lateral malleolus (S1). Strength: 5/5 strength hip flexors (L3) on the rig ht and left 5/5 strength in the quadriceps (L4) on t he right and left 5/5 strength in the tibialis anterior 5/5 strength in the EHL (L5) on the righ t and left 5/5 strength in the gastrocnemius (S1) o n the right and left 5/5 strength in the hamstring on the rig ht and left Negative straight leg raise bilaterally. Skin: Skin is warm and dry. No rash noted. No pallor. Normal capillary refill. Psychiatric: Normal mood. Normal affect. Const: Vital Signs, click to edit/add: Vital Signs - 24 hr 02/24/25 11:46 02/24/25 16:40 Temperature 98.7 F Pulse Rate [Right Pulse Oximeter] 78 76 Respiratory Rate 18 16 Blood Pressure [Ri ght Upper Arm] 160/74 H 167/72 H Pulse Oximetry 97 Oxygen Delivery Me thod Room Air Course Vital Signs Vital signs: Initial Vital Signs Temperature 98.7 F 02/24/25 11:46 Temperature Source Temporal Artery Scan 02/24/25 11:46 Pulse Rate 78 02/24/25 11:46 Pulse Rhythm Regular 02/24/25 11:46 Pulse Strength 3+ Normal 02/24/25 11:46 Respiratory Rate 18 02/24/25 11:46 Blood Pressure 160/74 H 02/24/25 11:46 Blood Pressure Mean 102 02/24/25 11:46 Blood Pressure Position Sitting 02/24/25 11:46 Pulse Oximetry 97 02/24/25 11:46 Oxygen Delivery Method Room Air 02/24/25 11:46 Vital Signs Temperature 98.7 F 02/24/25 11:46 Pulse Rate 78 02/24/25 11:46 Respiratory Rate 18 02/24/25 11:46 Blood Pressure 160/74 H 02/24/25 11:46 Pulse Oximetry 97 02/24/25 11:46 Oxygen Delivery Method Room Air 02/24/25 11:46 Temperature 98.7 F 02/24/25 11:46 Pulse Rate 76 02/24/25 16:40 Respiratory Rate 16 02/24/25 16:40 Blood Pressure 167/72 H 02/24/25 16:40 Pulse Oximetry 97 02/24/25 11:46 Oxygen Delivery Method Room Air 02/24/25 11:46 Medications Administered Medications: Discontinued Medications Generic Name Dose Route Start Last Admin Trade Name Freq PRN Reason Stop Dose Admin Diazepam 5 mg 02/24/25 12:42 02/24/25 12:59 Diazepam 5 Mg/Ml Inj IV 02/24/25 12:43 5 mg ONCE ONE Administration Hydromorphone HCl 0.5 mg 02/24/25 12:42 02/24/25 13:54 Hydromorphone 0.5 Mg/0.5 Ml Inj IVP 0.5 mg Q1H PRN Administration Pain Ketorolac Tromethamine 30 mg 02/24/25 12:42 02/24/25 12:59 Ketorolac 30 Mg/Ml Inj IM 02/24/25 12:43 30 mg ONCE ONE Administration Medical Decision Making [facility] Narrative Medical decision making narrative: This patient presented with back pain affecting primarily his right lumbar low back and radiating to his right hip and down to his right anterolateral thigh but not past his knee.. Broad differential considered. The patient did not sustain any trauma, therefore x-rays are not necessary due to the low likelihood of fracture or subluxation. The patient has not had a fever, saddle/perineal anesthesia, bilateral foot numbness, or bowel or bladder dysfunction. He has no history of diabetes or immunosuppression but given his age, consider potential malignancy. On clinical presentation symptoms and exam are suggestive of a right lumbar radiculopathy. MRI of his lumbar spine is obtained here in the ER and fortunately shows no sign ofcauda equina syndrome, discitis, spinal/epidural space hematoma or epidural abscess. It does show multilevel degenerative d isease with varying degrees of foraminal stenosis. I suspect that his symptoms are probably related to an L3 or L2 lumbar radiculopathy on the right. At this point no need for admission or emergent spine surgery. However I would recommend close outpatient follow-up with the patient's spine team. He has been seeing Dr. Perla and Dr. Johnson in the recent past. Pain has improved with interventions in the emergency department. The patient will be discharged with pain medications to use as directed. Ice or heat to the back and stretching exercises. No heavy lifting, bending or twisting. Return if increasing pain, numbness, weakness, or bowel or bladder dysfunction. The patient was advised to schedule follow-up with their primary doctor within 2-3 days to re-assess symptoms. Return precautions reviewed and questions answered. Prescriptions for Percocet and Valium provided. Also Zofran as needed for symptoms. Discussed opiate sedation precautions. Questions answered. Imaging Data MRI L spine: Attestation: I have reviewed the pertinent imaging results. Radiologist's impression: IMPRESSION: 1. Similar lower lumbar levocurvature with slight worsening of multilevel disc height loss. 2. At L2-L3, new small left paracentral disc protrusion narrowing the lateral recess, worsening of moderate right neural foraminal narrowing, and worsening of moderate to severe left neural foraminal narrowing. 3. At L3-L4, slight worsening of lateral recess narrowing and worsening of moderate right neural foraminal narrowing. 4. At L4-L5, similar mild narrowing of the right lateral recess, moderate to severe right neural foraminal narrowing, and [id number] left neural foraminal narrowing. Discharge Plan Discharge Clinical Impression: Lumbar radiculopathy, Low back pain Patient Disposition: Home, Self-Care Condition: Stable Instructions: Acute Low Back Pain (ED), Lumbar Radiculopathy (ED) Additional Instructions: As we discussed, please come back to the ER right away if you have worsening or uncontrolled pain, progressing weakness in your leg, malfunction of your bladder or bowels, or other concerns. Your MRI today shows that you do have a new small bulging disc between lumbar 2 and 3 and you still have arthritis with narrowing of the nerve channels (called ?intervertebral foramen) at lumbar 2-3, lumbar three-four, and lumbar 4-5. Please follow-up with your regular doctor and/or your it support specialist within the next 3-4 days for recheck. Use the prescription muscle relaxers and pain killers as needed. Be careful because these meds can cause dizziness, drowsiness, constipation, and can be addictive. Do not drive if you are taking pain killers. Prescriptions: New oxycodone 5 mg capsule 5 mg PO Q6H PRN (Reason: pain) Qty: 15 0RF diazepam [Valium] 5 mg tablet 5 mg PO BID PRNQty: 14 0RF ondansetron 4 mg tablet,disintegrating 4 mg PO Q8H PRN (Reason: nausea and vomiting) Qty: 10 0RF No Action fluorouracil 5 % cream topical omeprazole 40 mg capsule,delayed release(DR/EC) 40 mg PO DAILY tramadol 50 mg tablet 50 mg PO 3XD PRN (Reason: pain) tamsulosin 0.4 mg capsule 0.8 mg PO QPM timolol maleate 0.5 % drops 1 drp ophthalmic (eye) QAM finasteride 5 mg tablet 5 mg PO DAILY Praluent Pen 150 mg/mL pen injector 150 mg subcut Q2W Follow Up/Referrals: Chelle Ramachandran DO [Primary Care Provider] - Stand Alone Forms[facility] Instructions
--- NOTE | 2025-02-24 12:58 | CRLHL7_ITS ---
For Patients: As a result of the 21st Century Cures Act, medical imaging exams and procedure reports are released immediately into your electronic medical record. You may view this report before your referring provider. If you have questions, please contact your health care provider. INDICATION: Low back pain, right-sided lumbar radiculopathy. TECHNIQUE: Multisequence multiplanar MRI of the lumbar spine without the use of intravenous contrast. COMPARISON: MRI lumbar spine dated 05/19/2015. FINDINGS: Similar lumbar levocurvature with apex at L4-L5. Posterior aspects of vertebral bodies are aligned. Vertebral body heights are maintained. No T1 hypointense infiltrative lesion is identified. There has been slight worsening of multilevel disc desiccation and height loss with Modic type 2 degenerative endplate signal at L4-L5. Few scattered renal parenchymal hyperintensities are not adequately characterized but most typical for cysts. T12-L1: No significant spinal canal or neural foraminal stenosis. L1-L2: Symmetric disc bulge. No significant spinal canal or neural foraminal stenosis. L2-L3: Symmetric disc bulge. New small left paracentral disc protrusion (series 7, image 17) narrowing the lateral recess. Worsening of moderate right and moderate-severe left neural foraminal narrowing. L3-L4: Posterior disc bulge eccentric to the right. Moderate facet joint arthrosis. Mild spinal canal stenosis with worsening of lateral recess narrowing. Worsening of moderate right and similar mild left neural foraminal narrowing. L4-L5: Shallow symmetric disc bulge. Mild facet joint arthrosis. Similar mild narrowing of the right lateral recess, moderate-severe right neural foraminal narrowing, and mild-moderate left neural foraminal narrowing. L5-S1: Shallow symmetric disc bulge. Mild facet joint arthrosis. No significant spinal canal neural foraminal stenosis. IMPRESSION: 1. Similar lower lumbar levocurvature with slight worsening of multilevel disc height loss. 2. At L2-L3, new small left paracentral disc protrusion narrowing the lateral recess, worsening of moderate right neural foraminal narrowing, and worsening of moderate to severe left neural foraminal narrowing. 3. At L3-L4, slight worsening of lateral recess narrowing and worsening of moderate right neural foraminal narrowing. 4. At L4-L5, similar mild narrowing of the right lateral recess, moderate to severe right neural foraminal narrowing, and diom-xh-yvfivlfu left neural foraminal narrowing. Dictated by Kaiden Michael MD @ 02/24/2025 3:14:39 PM (Electronically Signed)
[2025-02-24] MEDS: diazePAM 5 MG/ML inj IV (12:59)
[2025-02-24] MEDS: KETOROLAC 30 MG/ML inj IM (12:59)
--- OUTSIDE RECORDS SUMMARY | 2025-02-24 12:59 | XMS_ITS | Encounter Summary ---
Author Organization [facility] Address [address] [place] [address] Care Team Providers Care Bundler Name Role Phone Elsewhere, Pcp Primary Care [...] CDT Office Visit Department of Dermatology in [address] [phone] Estuardo Montanez M.D. [address] [place] [phone] Discharge Disposition: Home or Self Care documented [...] on filedocumented in this encounter Care Teams Bundler Relationship Specialty Start Date End Date Elsewhere, Pcp PCP - General Family Medicine 02/05/19 documented as of this encounter
--- OUTSIDE RECORDS SUMMARY | 2025-02-24 12:59 | XMS_ITS | Data Portability ---
Author Organization SIMON Triplett - Leonardo Last, [facility] Address [address] [place] [address] Assessment No assessment recorded. Plan of Treatment Reminders Order Date Submit Date Provider Last Modified By Organization Details Last Modified Time Details Appointments None recorded. Lab urinalysi s, dipstick, auto 023 023 [facility], [address] , [place], [address], 3 14:19:52 culture, urine 023 023 [facility], [address] [facility], [place], [address], 3 12:57:28 Referral None recorded. Procedures None recorded. Surgeries None recorded. Imaging None recorded. Medication Orders Bactrim DS 800 mg-160 mg tablet 023 023 [id number], [id number] [facility], [place], [address], 3 14:19:52 Patient TargetsNo targets recorded. Patient Instructions Encounter Date Encounter Id Patient Instructions Last Modified By Organization Details Last Modified Time 12/12/2022 [id number] Urinalysis indicates you likely have a bladder [...] radha name. Not Available [facility] [address], [place], [address], 12/15/2022 04:14:38 12/12/19 23 12/15/2022 CULTU RE, URINE , ROUTI NE culture, urine, routine SEE NOTE CULTU RE, URINE , ROUTI NE Micro Numbe r: [id number] Test Statu s: Final Speci men [...] port Tube. Not Available [facility] [address], [place], [address], 12/15/2022 04:14:38 12/12/19 23 12/12/2022 urina lysis , dipst ick, auto Color Talya [Refer ence Range Yellow Straw] Not Available [facility] [address], [place], [address], 12/12/2022 14:02:13 12/12/19 23 12/12/2022 urina lysis , dipst ick, auto Clarity Bloody [Refer ence Range Clear] Not Available [facility] [address], [place], [address], 12/12/2022 14:02:13 12/12/19 23 12/12/2022 urina lysis , dipst ick, auto Glucose Negati ve [Refer ence Range Negati ve] Not Available [facility] [address], [place], [address], 12/12/2022 14:02:13 12/12/19 23 12/12/2022 urina lysis , dipst ick, auto Bilirubin Negati ve [Refer ence Range Negati ve] Not Available [facility] [address], [place], [address], 12/12/2022 14:02:13 12/12/19 23 12/12/2022 urina lysis , dipst ick, auto Ketones Negati ve [Refer ence Range Negati ve] Not Available [facility] [address], [place], [address], 12/12/2022 14:02:13 12/12/19 23 12/12/2022 urina lysis , dipst ick, auto Specific [place] 1.030 [Refer ence Range 1.001- 1.035] Not Available [facility] [address], [place], [address], 12/12/2022 14:02:13 12/12/19 23 12/12/2022 urina lysis , dipst ick, auto Blood Large [Refer ence Range Negati ve-Tra ce] Not Available [facility] [address], [place], [address], 12/12/2022 14:02:13 12/12/19 23 12/12/2022 urina lysis , dipst ick, auto Protein 3 00 mg/dL [Refer ence Range Negati ve] Not Available [facility] [address], [place], [address], 12/12/2022 14:02:13 12/12/19 23 12/12/2022 urina lysis , dipst ick, auto Urobilinogen (0.2-1 .0) E.U./d L [Refer ence Range (0.2-1 .0) E.U./d L] Not Available [facility] [address], [place], [address], 12/12/2022 14:02:13 12/12/19 23 12/12/2022 urina lysis , dipst ick, auto Nitrate Positi ve [Refer ence Range Negati ve] Not Available [facility] [address], [place], [address], 12/12/2022 14:02:13 12/12/19 23 12/12/2022 urina lysis , dipst ick, auto Leukocytes Trace [Refer ence Range Negati ve] Not Available [facility] [address], [place], [address], 12/12/2022 14:02:13 12/12/19 23 12/12/2022 urina lysis , dipst ick, auto pH 6.5 [Refer ence Range 5.0-9. 0] Not Available [facility] [address] , [place], [address], 12/12/2022 14:02:13 Result Notes None recorded. Problems Name Problem SNOMED Code Status Onset Date Resolution Date Notes Provider Name and Address Organization Details Recorded Time Acute urinary tract infection 920821139 Active 023 ARMANDO Taylor [address] [facility], [place], [address], [facility] 14:12:58 Problem Notes None recorded. Medical Equipment None Reported. Allergies Allergen ID Allergen Name Allergen Category Reaction Reaction Severity Criticality Documentation Date Start Date Code Code System Note Provider Name and Address Organization Details Recorded Time 845181 Sporanox medicatio n Not available Not available Not available 12/12/202263213 6 RxNorm Madyson goodwin [facility] 14:01:41 Medications Name Sig Start Date Stop [...] Arterial blood by Pulse oximetry Body temperature Pain severity - 0-10 verbal numeric rating [Score] - Reported Systolic blood pressure Diastolic blood pressure Provider Name and Address Organization Details Last Updated DateTime 3 177.8 cm 27.9 kg/m2 96604.0 8 g 71 /min 16 /min 96 % 96 % 98.3 [degF] 0 112 mm[Hg] 70 mm[Hg] Madyson Mcgregor [facility] 14:01:13 Social History Question Answer Notes LastModified by Organizat ion Details LastModified Time Tobacco Smoking Status Former Smoker Madyson goodwin [facility] 12/12/2022 14:01:59 Do You Have An Advance [...] SNOMED-CT Code Diagnosis ICD10 Code Diagnosis Note [id number] ARMANDO Taylor [facility] [address] [place] [address] 12/12/2022 13:07:31 12/12/2022 14:21:46 Acute urinary tract infection 520573821 N39.0 Abnormal urinalysis . No red flags on exam or concerns for complicate d cystitis. Culture ordered today. Bactrim Rx Follow-up in ER if no improvemen t or worsening symptoms. Health Concerns Section Related Observation LastModified by Organization Detai ls LastModified Time None Recorded Concern Status LastModified by Organization Details LastModified Time None Recorded Advance Directives Directive N: Payers Encounter Date Sequence Insurance Name Policy Number Policy Colindres Covered Member ID Colindres Member ID Guarantor Name 12/12/2022 2 [facility] [employer] (PPO) [id number] Barrie Dinh [id number] Barrie Dinh Notes Date Note Type Note Provider Name and Address Organization Details Recorded Time 12/12/2022 text/html 77 yo M c/o urinary burning, gross hematuria since this morning. Denies fever, chills, flank pain, n/v. Hx of prostate issues. No past kidney or UTIs. ARMANDO Taylor [address] [place], [address], [place] [facility] 12/12/2022 14:21:55
--- OUTSIDE RECORDS SUMMARY | 2025-02-24 13:00 | XMS_ITS | Clinical Summary ---
Author Organization [facility] Address [address] [place] [address] Care Team Providers Care Cell Feed Department Supervisor Name Role Phone Chelle Ramachandran Primary Care Provider Allergies Active Allergy Reactions Criticality Noted Date Comments Ezetimibe Rash,Myalgia Medium 02/22/2010 sporonex Zetia Itraconazole Rash Medium sporonox Melon Shortness Of Breath,Dyspnea Medium 03/29/2017 Melon Flavor 04/01/2009 Simvastatin Myalgia Medium 02/22/2010 Elevated blood glucose as well.Has tried all statins Spice Flavor Anaphylaxis 04/01/2009 pinto Medications Vit A,C,E-Zinc-Gamal er (ICAPS AREDS) 14,172-744-200 vpzc-qo-stbp cap Take 1 tablet by mouth 2 [...] Description 02/06/2025 11:00 AM CDT Office Visit [facility] [address] [place] [address] Gerardo Antoine MD Musculoskeletal Problem (Follow up back pain ) 02/06/2025 Travel 01/30/2025 2:00 PM CDT Office Visit [facility] [address] [place] [address] Jose E Fraire MD Follow Up (Follow up coronary artery disease ) 01/30/2025 Telephone [facility] [address] [address] Jose E Fraire MD Medication Problem (fish oil) 01/29/2025 8:30 AM CDT Orders Only [facility] [address] [place] [address] Lab, Farm Lab 01/29/2025 Travel 01/22/2025 Telephone [facility] [address] [address] Jose E Fraire MD Lab (Need orders) [...] on file Legal 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 Gender Identity Not on file Sexual Orientation [...] Description 03/09/2025 9:50 AM CDT Office Visit [facility] [address] [place] [address] Chelle Ramachandran DO [address] [place] [address] Health Maintenance Due Date Last Done Comments [...] unspecified vessel or lesion type, unspecified whether kasaan or transplanted heart Hyperlipidemia LDL goal < 100 BASIC METABOLIC PANEL Routine 01/29/2025 8:26 AM CDT 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 angina pectoris, unspecified vessel or lesion type, unspecified whether kasaan or transplanted heart Hyperlipidemia LDL goal < 100 HEMOGLOBIN A1C Routine 01/29/2025 8:26 AM CDT 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 angina pectoris, unspecified vessel or lesion type, unspecified whether kasaan or transplanted heart Hyperlipidemia LDL goal < [...] diagnosis of diabetes in children. According to [place] Diabetes Association (ADA) guidelines, hemoglobin A1c <7.0% represents optimal control in non- diabetic patients. Different metrics may apply to specific patient populations. Standards of Medical Care in Diabetes(ADA). Blood BLOOD SPECIMEN / Unknown 01/29/2025 8:26 AM CDT 01/29/2025 8:26 AM CDT Jose E Fraire MD CHEMISTRY Final Resu lt [facility] [address] [place] [address], [place] [phone] [facility] [address] [place] [address] * (ABNORMAL) LIPID PANEL W REFLEX MEASURED [...] LDL-C. Pawan SS et al. JARRET. 2013;310(19): 9117-2233 (http://education.Numerate/faq/CNP262) CHOL/HDLC RATIO 3.5 <5.0 (calc) [facility] [...] Fraire MD CHEMISTRY Final Resu lt [facility] [address] [place] [address], [place] [phone] [place] [facility] [address] [place] [address] * (ABNORMAL) BASIC METABOLIC PANEL (01/29/2025 8:26 AM CDT) GLUCOSE 111(H) 65 - 99 mg/dL [facility] Comment: Fasting reference interval For someone without known diabetes, a glucose value between 100 and 125 mg/dL is consistent with prediabetes and should be confirmed with a follow-up test. UREA NITROGEN (BUN) 18 7 - 25 mg/dL [employer] CREATININE 1.27 0.70 - 1.28 mg/dL [facility] EGFR 58(L) > OR = 60 mL/min/1. 73m2 [employer] [employer] BUN/CREATININE RATIO SEE NOTE: 6 - 22 (calc) [employer] Comment: Not Reported: BUN and Creatinine are within reference range. SODIUM 140 135 - 146 mmol/L [employer] POTASSIUM 4.5 3.5 - 5.3 mmol/L [employer] CHLORIDE 107 98 - 110 mmol/L [facility] CARBON DIOXIDE 26 20 - 32 mmol/L [facility] ELECTROLYTE BALANCE 7 7 - 17 mmol/L (calc) [employer] CALCIUM 9.2 8.6 - 10.3 mg/dL [employer] Blood BLOOD SPECIMEN / Unknown 01/29/2025 8:26 AM CDT 01/29/2025 8:26 AM CDT us Jose E Fraire MD CHEMISTRY Final Resu lt [employer] [facility] [address] [place] [address], [place] [phone] [facility] [facility] [address] [place] [address] * LC HCV ANTIBODY RFX TO QUANT PCR (03/09/2023 7:54 AM CDT) HCV Ab Non Reactive Non Reactive 03/13/2023 1:[address] [facility] ESOTERIC TESTING (CET) Blood BLOOD SPECIMEN / Unknown Venipuncture / Unknown 03/09/2023 7:54 AM CDT 03/09/2023 7:56 AM CDT Narrative FOR ESOTERIC TESTING (CET) - 03/13/2023 1:10 PM CDT Performed at: 01 - [facility] [employer] [place] [phone] Safe Deposit Box Rental Clerk: Eliezer Alfaro MD, Phone: [phone] us Chelle Ramachandran DO LABORATORY Final Resul t [facility] ESOTERIC TESTING (CET) [address] [place] [address], from Last 3 Months or Most Recently Relevant to Health Maintenance Insurance MEDICARE PART B HB ONLY [employer] [place] [id number] [employer] BLUE HB ONLY [place] [id number] MEDICARE PART A HB ONLY Advance Directives [...] Comments Code Status Discussion: Discussed Care Teams Cell Feed Department Supervisor Relationship Specialty Start Date End Date Chelle Ramachandran DO [address] [place] [address] PCP - General Family Practice 08/31/17
--- OUTSIDE RECORDS SUMMARY | 2025-02-24 13:00 | XMS_ITS | Clinical Summary ---
Author Organization [facility] Address [address] [place] [address] Care Team Providers Care Carbonating Stone Cleaner Name Role Phone Elsewhere, Pcp Primary Care Provider Unavailabl e Source Comments Patient records contain information from all sites at [facility]. For routine questions regarding patient records, call [phone] during business hours, M-F 8:00 AM - 5:00 PM Central Time. Record requests for emergency care only can be directed to [phone] at any time.[facility] Allergies Active Allergy Reactions Criticality Noted Date [...] CDT Office Visit Department of Dermatology in [address] [address] Estuardo Montanez M.D. 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 [address] [place] [address] Discharge Disposition: Home or Self Care Health [...] this topic Medical Devices Implanted Type Area Teaching Associate Device Identifier Shelf Expiration Date Model / [...] IIMS NA from Last 3 Months Insurance [facility] MEDICARE Care Teams Carbonating Stone Cleaner Relationship Specialty Start Date End Date Elsewhere, Pcp PCP - General Family Medicine 02/05/19
--- OUTSIDE RECORDS SUMMARY | 2025-02-24 13:00 | XMS_ITS | Encounter Summary ---
Author Organization [facility] Address [address] [place] [address] Care Team Providers Care .Net Programmer Name Role Phone Elsewhere, Pcp Primary Care Provider Unavailabl e Reason for Referral * Outpatient (Routine) - Authorized Specialty Diagnoses / Procedures Referred By Carl lovell Referred To Contact Dermatology Estuardo Montanez M.D. [address] [place] [address] Phone: tel: fax: [facility] Region Referral ID Status Reason Start Date Expiration Date V isits Requested Visits Authorized [id number] Authorized 02/03/2025 08/05/2026 1 1 Scheduling Instructions Recheck right thumb lesion and probable biopsy March 17, 8-830 am. 30 mins Reason for Visit * Reason Comments Skin Check Waist up only * Appointment Request (Routine) - Closed Specialty Diagnoses / Procedures Referred By Carl lovell Referred To Contact Dermatology Referral ID Status Reason Start Date Expiration Date Visits Re quested Visits Authorized [id number] Closed 10/08/2024 10/08/2025 1 1 Encounter Details Date Type Department Care Team (Late st Contact Info) Description 02/03/2025 4:00 PM CDT Office Visit Department of Dermatology in [address] [address] Estuardo Montanez M.D. 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 He was seen in [facility] on 07/24/2024, by Dr. Boyle (supervised by [...] post Mohs, 12/31/2020, by Dr. Holman at [facility] Left malar cheek, lower: Compound melanocytic nevus [...] surgery on 12/31/[address] Holman at [facility], no recurrence No clinical evidence of local [...] behalf by Cassie Lozada, a trained medical record consultant. The creation of this record is based [...] CDT Office Visit Department of Dermatology in [address] [phone] Estuardo Montanez M.D. [address] [place] [phone] Discharge Disposition: Home or Self Care Scheduled Referrals Name Type Priority Associated Diagnoses Order Schedule Dermatology office visit (clinic) Outpatient Referral Routine Expected: 03/17/2025 (Approximate), Expires: 05/05/2026 documented as of this encounter Visit Diagnoses Diagnosis Callus- Primary Nevi Multiple Keratosis Seborrheic documented in this encounter Care Teams .Net Programmer Relationship Specialty Start Date End Date Elsewhere, Pcp PCP - General Family Medicine 02/05/19 documented as of this encounter
[2025-02-24] MEDS: HYDROmorphone 0.5 mg/0.5 ml inj IVP (13:54)
[2025-02-24 16:40] VITALS: BP 167/72; PULSE 76; RESP 16
== END 2025-02-24 16:41 | disposition home or self-care (01) ==
PROVIDERS: Emergency Provider Emergency Medicine; PCP Family Medicine
DX: M54.16 Radiculopathy, lumbar region (principal); M54.50 Low back pain, unspecified
CPT/HCPCS: 72148; 96374; 96375; 99283; 99284; J1171; J1885; J3360

== ENCOUNTER 2025-03-17 08:00 | Outpatient (CLI) | payer MEDICARE, BC, SELFPAY | END 2025-03-17 08:01 | disposition home or self-care (01) | LOC: INJ CL 08:01 | PROVIDERS: PCP Family Medicine; Visit Provider Family Medicine | DX: M54.16 Radiculopathy, lumbar region (principal); M51.369 Other intervertebral disc degeneration, lumbar region without mention of lumbar back pain or lower extremity pain; M48.062 Spinal stenosis, lumbar region with neurogenic claudication | CPT/HCPCS: 64483; 64484; J1100; Q9966 ==